=== PATIENT | female | born 1935 | race Caucasian/White ===

== ENCOUNTER 2017-11-12 09:50 | Emergency (ER) | payer MEDICARE, OTHER, SELFPAY ==
[2017-11-12 09:51] VITALS: BP 135/62; PULSE 70; RESP 16; TEMP 36.9; O2SAT 94; BMI 27.4
--- NOTE | 2017-11-12 10:01 | CT_ITS ---
STUDY: CT LUMBAR SPINE WITHOUT CONTRAST REASON FOR EXAM: Female, 82 years old. Low back pain following a lifting injury. RADIATION DOSAGE (If Supplied By Facility): CTDIvol = ( 27.71 ) mGy, DLP = ( 796.35 ) mGycm TECHNIQUE: The patient was scanned in a multi detector CT scanner. High resolution transaxial imaging was performed. Images were obtained from T12 to L1 level. Sagittal and coronal images were reconstructed. Individualized dose optimization techniques were used for this CT. COMPARISON: None FINDINGS: Normal lumbar lordosis. There is no substantial scoliosis. Normal vertebrae of the lumbar spine. L1-2: Mild degree of disc space narrowing. Anterior spondylosis. L2-3: Mild degree of retrolisthesis of L2 on L3. Spondylosis. Mild degree of diffuse posterior disc bulge. No stenosis is seen. L3-4: Moderate degree of disc space narrowing. Diffuse posterior disc bulge. Facet joint osteoarthritis and hypertrophy. Mild degree of central canal stenosis and moderate degree of bilateral neural foraminal stenosis. L4-5: Grade 1 anterolisthesis of L4 on L5. Facet joint osteoarthritis and hypertrophy. Diffuse posterior disc bulge. Marked degree of central and bilateral neural foraminal stenosis. L5-S1: Moderate degree of disc space narrowing. Facet joint osteoarthritis. No significant stenosis is seen. Calcification of the abdominal aorta. CT/Spine Lumbar without Contrast IMPRESSION: Multilevel degenerative changes, as described above. Spinal stenosis at the L4-L5 level with mild anterior listhesis of L4 on L5. Electronically Signed: Jose Rowan MD at 14:12 EDT Tel [phone], Service support ,
--- NOTE | 2017-11-12 10:03 | ED.DCSUM_ITS ---
- ER Visit Summary Date of Service: 11/12/17 Chief Complaint: Lower back pain History of Present Illness: The patient is a 82 F with history of prior low back pain and osteoporosis presents to the emergency department with increasing lower back pain. Patient states about a week ago, she picked up her 15 pound dog. She states that she felt some tightness in her low back. It does radiate into her right hip. She states over the week, the pain is worsened. She states by Wednesday night, the pain was rather significant. She states last night , when she got out of bed her back locked up and she had a difficult time getting back in the bed. She denies any problems of bowel or bladder. She denies any weakness of the leg. She denies any change in gait. She has taken Tylenol with little improvement. Physical Examination: Afebrile, vitals unremarkable. Well-appearing female no acute distress. Head is normocephalic, atraumatic. Pupil's equal round reactive, extraocular muscles intact. Neck supple. Heart regular rate and rhythm. Lungs clear, chest nontender. Abdomen soft, nontender, nondistended. No pulsatile mass. Patient has paraspinal tenderness in the lumbar area, but no bony tenderness. Straight leg raise is negative bilaterally. 2+ symmetric lower extremity pulses. 2+ reflexes. No clonus. No weakness of dorsiflexion, plantar flexion, or extensor hallucis longus bilaterally. Test Results: [] Emergency Department Course and Treatment: The patient presented with midline back pain that is worse with motion. It does not radiate down her leg. She denies any changes in gait. She has no red flag symptoms. The patient does have a history of pancytopenia that she follows with oncology in [place]. She states that this is chronic. I did obtain screening labs. Her platelets are 50 , but in review of her prior records with the patient and family, her last platelets were 50. She has had no easy bleeding or bruising. Patient's urine does show evidence of infection. She has had some mild dysuria over the past 2 days when I brought this up with her. Culture was added. I will place her on Keflex. I did obtain CT of the lumbar spine. This did demonstrate anterolisthesis at the L4-L5 area. There is also severe spinal stenosis at this area. Again, the patient had no trauma. She was just lifting. I do feel that this is more likely disc disease. It does not radiate. She has no symptoms of cauda equina. Even in light of her thrombocytopenia, she had no fall. I do not feel that her symptoms represent epidural hematoma or other dangerous process. With morphine, she is pain-free. She is ambulating easily. I will treat the patient with a short course of analgesics and she will be kept on antibiotics. I did certified genetic counselor her that she may need follow-up with orthopedics as an outpatient when she goes back to [place] versus outpatient MRI. She is comfortable with this and will return with any worsening symptoms. Treatment Plan: [] Disposition: Discharge Impression: 1. Acute lumbar strain 2. Acute cystitis This note was generated with [employer] dictation software. It may contain incorrect words, spelling, and punctuation that were not noted in review of the chart prior to signing ED Disposition - Plan for ED Patient: Chief Complaint: Back Instructions: ED Sprain Strain Lumbar, ED UTI Cystitis Female Prescriptions: Hydrocodone Bitart/Apap 5-325 [[place] 5MG-325MG] 1 tab PO Q6H PRN PRN 3 Days #10 tab PRN Reason: Pain Cephalexin [Keflex] 500 mg PO Q8 #30 cap Referrals: [facility] Doctor,Out of [Primary Care Provider] -
[2017-11-12] MEDS: Morphine 4 MG/ML Syringe IV (10:32)
[2017-11-12] MEDS: Ondansetron 4 MG/2 ML Vial IV (10:33)
[2017-11-12 10:57] LABS: Absolute Lymphocyte Count 0.41 X10^3/ul (0.83-4.51); Absolute Neutrophil Count 2.2 X10^3/uL (2.0-7.7); Eosinophil# 0.06 X10^3/uL; Hematocrit 35.1 % (37-47); Hemoglobin 11.5 g/dl (12.0-15.0); Lymphocyte # 0.41 X10^3/ul (4.0); Lymphocyte % 13.9 % (19-41); Mean Corp Hgb Conc 32.8 g/gl (32-36); Mean Corpuscular Hgb 31.9 pg (27.0-32.0); Mean Corpuscular Volume 97.2 fL (81-99); Mean Platelet Vol. 11.3 fl (6.2-12.0); Monocyte# 0.23 X10^3/uL; Monocyte% 7.8 % (0-10); Neutrophil # 2.24 X10^3/uL (2.7-7.7); Neutrophil % 76.3 % (47-70); Platelet Count 50 K/mm3 (150-450); RBC Distribution Width CV 14.2 % (11.6-14.6); RBC Distribution Width SD 50.6 fl (35.1-43.9); Red Blood Count 3.61 M/mm3 (4.2-5.4); White Blood Count 2.9 K/mm3 (4.4-11.0)
[2017-11-12 10:59] LABS: Differential Indicated SCAN CRITERIA MET; POSITIVE COUNT NO; POSITIVE DIFFERENTIAL YES; POSITIVE MORPHOLOGY NO
[2017-11-12 11:03] LABS: Anion Gap 8 (5-15); BUN 37 mg/dL (7-18); Calcium,Total 8.9 mg/dL (8.5-10.1); Chloride 111 mmol/L (98-107); Creatinine, Serum 1.48 mg/dL (0.55-1.02); EST Glomerular Filtration Rate 36 mL/min (>60); Est Glom Filt Rate - Afr Amer 44 mL/min (>60); Estimated Creatinine Clearance 23.98 ml/min; Glucose 213 mg/dL (74-106); Potassium 4.6 mmol/L (3.5-5.1); Sodium Level 143 mmol/L (136-145)
[2017-11-12 11:04] LABS: Mucous, Urine 0 SEEN /hpf (<or=2+)
[2017-11-12 11:07] LABS: Color, Urine Yellow (Yellow); Glucose, Dipstick Normal (Normal); Ketone-Dipstick Negative (Negative); Leukocyte Esterase-Dipstick 500 /ul (Negative); Nitrite-Dipstick Positive (Negative); Occult Blood-Urine 25 /ul (Negative); Protein-Dipstick 15 mg/dl (Negative); Specific Gravity, Urine 1.015 (1.002-1.030); Urine Bilirubin Dipstick Negative (Negative); Urine Clarity Sl. Cloudy (Clear); Urine Urobilinogen Normal (Normal)
[2017-11-12 11:15] LABS: Bacteria 1+ /hpf (None Seen); Red Blood Cells-Urine 0-5 SEEN /hpf (0-5); Squamous Epithelial Cells - UA 0-5 SEEN /hpf (5-10); White Blood Cells 25-50 SEEN /hpf (0-5)
[2017-11-12 11:59] VITALS: RESP 16
[2017-11-12 13:15] VITALS: BP 128/45; PULSE 64; RESP 17; O2SAT 98
[2017-11-12] MEDS: Cephalexin 250 MG Capsule 500 MG PO (13:15)
[2017-11-15 14:41] LABS: Pathologist Review Reviewed
== END 2017-11-12 13:18 | disposition home or self-care (01) ==
PROVIDERS: Emergency Provider Emergency Medicine
DX: N30.00 Acute cystitis without hematuria (principal); S39.012A Strain of muscle, fascia and tendon of lower back, initial encounter; X50.9XXA Other and unspecified overexertion or strenuous movements or postures, initial encounter; Y93.9 Activity, unspecified; Y92.89 Other specified places as the place of occurrence of the external cause; Y99.9 Unspecified external cause status; M48.061 Spinal stenosis, lumbar region without neurogenic claudication; I10 Essential (primary) hypertension; I25.10 Atherosclerotic heart disease of native coronary artery without angina pectoris; E78.00 Pure hypercholesterolemia, unspecified
CPT/HCPCS: 72131; 80048; 81001; 85025; 87086; 87088; 87186; 96374; 96375; 99285; A4216; J2405

== ENCOUNTER 2023-03-19 11:20 | Emergency (ER) | payer MEDICARE, OTHER, SELFPAY ==
[2023-03-19 11:22] VITALS: BP 155/54; PULSE 89; RESP 10; TEMP 37.1; O2SAT 94; BMI 22.6
--- NOTE | 2023-03-19 11:42 | RAD_ITS ---
EXAM: XR PELVIS, 1 OR 2 VIEWS CLINICAL INDICATION: fall/pain L buttock TECHNIQUE: Frontal view of the pelvis. COMPARISON: No relevant prior studies available. FINDINGS: BONES/JOINTS: No acute fracture or subluxation. Surgical fixation of the left femoral neck. No significant hip joint space narrowing. Mild bony hypertrophy of the acetabulum bilaterally. SOFT TISSUES: Normal. No soft tissue swelling or gas. RAD/Pelvis 1 or 2 Views IMPRESSION: No acute abnormality. Electronically Signed: Camilo Spivey MD at 12:49 EST ,
--- NOTE | 2023-03-19 11:44 | EDS_ITS ---
HPI History of Present Illness Chief Complaint: Weakness Informant: patient and family Narrative Narrative: 87-year-old female limited history from her due to dementia, she is in [facility] memory care units and has been weak for the past 1-2 days to the point where today she is unable to get out of bed and stand/walk, she normally is ambulatory with a walker. She is at her baseline mental status according to family. She recently finished a course of antibiotics for right periorbital cellulitis according to the family, finishing the antibiotics 2 or 3 days ago. Yesterday she had 2 bouts of diarrhea, and family states she has not drank any water or fluids yesterday or today. She apparently had a minor fall yesterday as well. Nurses told family who reports to me that she sustained a skin tear on her left forearm on the walker that she had with her, and fell onto her buttocks. She was able to stand after that without pain or other significant difficulty so she was not sent to the ER for evaluation at that time. [facility]isted [facility] paperwork shows patient is DNR comfort care only. PFSH PFS Home Medications levothyroxine 25 mcg tablet 50 mcg PO DAILY 12/21/12 [History Last Taken Unknown] allopurinol 300 mg tablet 300 mg PO DAILY 06/13/16 [History Last Taken Unknown] atorvastatin 40 mg tablet 40 mg PO DAILY 11/12/17 [History Last Taken Unknown] colchicine 0.6 mg capsule 0.3 mg PO DAILY 11/12/17 [History Last Taken Unknown] insulin degludec 100 unit/mL (3 mL) subcutaneous pen (Tresiba FlexTouch U-100 insulin) 10 unit subcut QHS 11/12/17 [History Last Taken Unknown] iron, carbonyl 45 mg tablet (Feosol) 65 mg PO DAILYCM 11/12/17 [History Last Taken Unknown] metoprolol tartrate 50 mg tablet 50 mg PO BID 11/12/17 [History Last Taken Unknown] sertraline 50 mg tablet 50 mg PO QHS 11/12/17 [History Last Taken Unknown] ascorbic acid (vitamin C) 500 mg tablet (Vitamin C) 500 mg PO BID 03/19/23 [History Last Taken Unknown] cephalexin 250 mg capsule 250 mg PO DAILY 03/19/23 [History Last Taken Unknown] cholecalciferol (vitamin D3) 125 mcg (5,000 unit) tablet (Vitamin D3) 5,000 unit PO DAILY 03/19/23 [History Last Taken Unknown] cholestyramine (with sugar) 4 gram powder for susp in a packet 1 ea PO TIDCM 03/19/23 [History Last Taken Unknown] ferrous sulfate 325 mg (65 mg iron) tablet (Feosol) 325 mg PO DAILY 03/19/23 [History Last Taken Unknown] memantine 10 mg tablet 10 mg PO BID 03/19/23 [History Last Taken Unknown] Allergy/AdvReac Type Severity Reaction Status Date / Time sulfamethoxazole AdvReac Nausea Verified 03/19/23 11:21 [From Bactrim] trimethoprim [From Bactrim] AdvReac Nausea Verified 03/19/23 11:21 Social History Smoking Status: Never smoker ROS ROS ED Review of Systems ROS Unobtainable: other Details: Limited due to dementia Constitutional Constitutional ED: Denies chills Eyes Eyes: Denies change in vision or diplopia ENT ENT ED: Denies sore throat Cardiovascular Cardiovascular: Denies chest pain Respiratory/Chest Respiratory/Chest: Denies dyspnea Gastrointestinal Gastrointestinal: Denies abdominal pain or nausea Musculoskeletal Musculoskeletal: Denies back pain or neck pain Integumentary Reports other Details: Skin tear Neurologic Neurologic: Reports other Details: Generalized weakness ; Denies headache(s) or paresthesias EXAM Physical Exam Const Vital Signs: 03/19/23 11:22 03/19/23 11:30 03/19/23 13:21 Temperature 98.8 F Temperature Source Temporal Pulse Rate 89 63 Respiratory Rate 10 L 14 Respiratory Effort Normal Non-Labored Respiratory Pattern Normal Blood Pressure 155/54 H 153/59 H Blood Pressure Mean 87 90 Pulse Ox 94 Oxygen Delivery Method Room Air Positive well nourished and well developed General Appearance ED: well developed and NAD HEENT Reports moist mucous membranes normocephalic and atraumatic Eyes PERRL and EOMs intact bilaterally Neck full ROM and supple Resp normal respiratory effort and clear to auscultation bilaterally Cardio regular rate, regular rhythm and no murmurs GI non-tender and non-distended Auscultation: normoactive bowel sounds Palpation: soft Back/Spine no CVA tenderness Back/Spine Narrative: No midline spinal tenderness throughout the spine. There is some mild tenderness in the right buttock approximately at the ischial tuberosity area. No crepitance. Pelvis stable to AP compression. General Back: other FROM Extremity normal to inspection Extremity Narrative: Full range of motion throughout all joints, pain with supination and pronation of the left wrist/forearm, other than the skin tear inspection is normal. I am able to internally and externally rotate both hips without eliciting any pain. General Extremety ED: Negative for edema, pulses abnormal or tenderness General Extremity: Negative for edema or pulses abnormal Neuro CN's II-XII intact bilaterally and no sensory deficits noted Neuro Narrative: At baseline mental status. Nonfocal peripheral neurologic exam. Sensorium / Orientation: awake, alert and orientation impaired Motor Exam: general weakness Skin Skin Narrative: Chronic wound large scab over skin graft left face, mildly tender, appearance is stable according to family at bedside. There is a skin tear approximately 20 cm? left volar forearm without signs of active bleeding or infection. There is no periorbital cellulitis either side. No other rashes or wounds. MDM MDM MDM Narrative Medical decision making narrative: There is a dried crusted piece of gauze over the skin tear. This was gently removed, and replaced with bacitracin-coated Telfa nonstick pad after cleansing the wound gently. Workup was entertained, given the wide differential here of an elderly confused weak woman. She has not been drinking and dehydration is thought to be more than likely. Workup was also aimed at ruling out infections, other metabolic disturbances, cardiac injury, and anemia that could be due to multiple causes including her chronic kidney disease that she has a history of. In the meantime she was given a liter of IV fluids. Chest x-ray 1 view on my interpretation shows no acute abnormality or pneumonia. Pelvis x-ray 2 views on my interpretation showed no evidence of any fractures. Lab suggest mild dehydration partially due to diarrhea and more likely due to lack of oral intake, with a suppressed bicarb but normal anion gap and stable renal function. The rest of her workup is unremarkable. She is not excessively anemic for her kidney function and history of hemoglobins. I do not think she needs a head CT, she has no evidence of trauma to it, and she is at her baseline mental status, and is well is DNR comfort care only. We gave her an oral fluid challenge after the IV fluids and she is drinking without any difficulty. I do not think we have any medical reason to admit her to the hospital, family is comfortable with her going back to the memory care unit. Nurses discussed with staff there, they are comfortable taking her back as well and we advised them to encourage oral fluids, and with regards to her diarrhea if the frequency and nature of it change/increase/worsen, it may be reasonable to send for C. difficile but that is not a concern right now after 2 isolated bouts of diarrhea without any in the emergency department after several hours. History & Record Review Discussion w/independent historian: Patient, Family (2 members) and Other ([facility] paperwork) Lab Data Attestation: I reviewed the patient's lab results. Labs: Laboratory Results - last 24 hr 03/19/23 03/19/23 12:00 12:50 WBC 4.0 L RBC 3.53 L Hgb 10.9 L Hct 34.8 L MCV 98.6 MCH 30.9 MCHC 31.3 L RDW Std Deviation 51.6 H RDW Coeff of Beatrice 14.5 Plt Count 57 L MPV 10.5 Immature Gran % (Auto) 0.500 Neut % (Auto) 73.6 H Lymph % (Auto) 18.6 L [place] % (Auto) 5.0 Eos % (Auto) 2.3 Baso % (Auto) 0.0 Absolute Neuts (auto) 2.9 Absolute Lymphs (auto) 0.74 L Nucleated RBC % 0 Sodium 144 Potassium 4.5 Chloride 120 H Carbon Dioxide 18.0 L Anion Gap 6 BUN 33 H Creatinine 1.34 H Estim Creat Clear Calc 24.28 Est GFR (MDRD) Af Amer 48 L Est GFR (MDRD) Non-Af 40 L BUN/Creatinine Ratio 24.6 H Glucose 126 H Calcium 9.3 Total Bilirubin 0.50 AST 24 ALT 24 Alkaline Phosphatase 147 H Troponin I High Sens 14 Total Protein 5.7 L Albumin 3.0 L Globulin 2.7 Albumin/Globulin Ratio 1.1 Urine Color Yellow Urine Clarity Clear Urine pH 5.0 Ur Specific [place] 1.015 Urine Protein 30 H Urine Glucose (UA) Normal Urine Ketones Negative Urine Occult Blood 250 H Urine Nitrite Negative Urine Bilirubin Negative Urine Urobilinogen Normal Ur Leukocyte Esterase 100 H Urine RBC 25-50 SEEN Urine WBC 10-25 SEEN Ur Squamous Epith Cells 0 SEEN Urine Bacteria 0 SEEN Urine Mucus 0 SEEN Radiography Diagnostic Testing: Clinical Impression(s) from Imaging Studies Pelvis X-Ray 03/19/23 11:42 IMPRESSION: No acute abnormality. Electronically Signed: Camilo Spivey MD at 12:49 EST , Chest X-Ray 03/19/23 12:20 IMPRESSION: No acute cardiopulmonary abnormality. No interval change. Electronically Signed: Camilo Spivey MD at 12:43 EST , Rhythm Strip Rhythm Strip: Sinus Rhythm Rate: 65 Ectopy: None EKG Initial EKG: Attestation: I personally reviewed and interpreted this EKG as follows: Interpretation: Sinus Rhythm and No Acute Injury Pattern Comments: nml EKG Discharge Plan Triage Chief Complaint: Weakness ED Provider: Fer Benton Dx/Rx/DC Orders Clinical Impression: Generalized weakness, Mild dehydration, Acute diarrhea Instructions: ED Dehydration (Adult), ED Diarrhea, Unknown Cause Prescriptions: No Action levothyroxine 25 MCG tablet 50 mcg PO DAILY allopurinol 300 MG tablet 300 mg PO DAILY atorvastatin 40 MG tablet 40 mg PO DAILY metoprolol tartrate 50 MG tablet 50 mg PO BID sertraline 50 MG tablet 50 mg PO QHS iron, carbonyl [Feosol] 45 MG capsule 65 mg PO DAILYCM insulin degludec [Tresiba FlexTouch U-100] 100 UNIT/ML insulin pen 10 unit subcut QHS colchicine 0.6 MG tablet 0.3 mg PO DAILY memantine 10 mg tablet 10 mg PO BID cephalexin 250 mg capsule 250 mg PO DAILY cholestyramine (with sugar) 4 gram powder in packet 1 ea PO TIDCM ferrous sulfate [Feosol] 325 mg (65 mg iron) tablet 325 mg PO DAILY ascorbic acid (vitamin C) [Vitamin C] 500 mg tablet 500 mg PO BID cholecalciferol (vitamin D3) [Vitamin D3] 125 mcg (5,000 unit) tablet 5,000 unit PO DAILY Primary Care Provider: Sneha Mabry Referrals: [facility],Out of [Non-Staff] - 3-5 Days if not improving Activity Restrictions/Additional Instructions: Encourage fluids since patient has dementia and may forget. If diarrhea significantly worsens, consider obtaining a sample and calling the doctor of record for c. diff testing order. Also consider providing twice daily probiotic capsule in case this is antibiotic associated diarrhea to help prevent worsening. Disposition Disposition: Home, Self Care
[2023-03-19] MEDS: 0.9% Normal Saline (1000mL) 1,000 ML 1000 ML IV (12:08)
[2023-03-19 12:11] LABS: Absolute Lymphocyte Count 0.74 X10^3/uL (0.83-4.51); Absolute Neutrophil Count 2.9 X10^3/uL (2.0-7.7); Eosinophil# 0.09 X10^3/uL; Eosinophils% 2.3 % (0-5); Hematocrit 34.8 % (37-47); Hemoglobin 10.9 g/dL (12.0-15.0); Lymphocyte # 0.74 X10^3/ul (0.83-4.51); Lymphocyte % 18.6 % (19-41); Mean Corp Hgb Conc 31.3 g/dL (32-36); Mean Corpuscular Hgb 30.9 pg (27.0-32.0); Mean Corpuscular Volume 98.6 fL (81-99); Mean Platelet Vol. 10.5 fl (6.2-12.0); NRBC Flagged by Analyzer 0 % (0-5); Neutrophil # 2.93 X10^3/uL (2.7-7.7); Neutrophil % 73.6 % (47-70); POSITIVE COUNT YES; RBC Distribution Width CV 14.5 % (11.6-14.6); RBC Distribution Width SD 51.6 fl (35.1-43.9); Red Blood Count 3.53 M/mm3 (4.2-5.4)
[2023-03-19 12:12] LABS: Platelet Count 57 K/mm3 (150-450)
--- NOTE | 2023-03-19 12:20 | RAD_ITS ---
EXAM: XR CHEST, 1 VIEW CLINICAL INDICATION: weakness TECHNIQUE: Frontal view of the chest. COMPARISON: XR Chest dated 06/13/2016 FINDINGS: LUNGS AND PLEURAL SPACES: Normal. No consolidation or edema. No pneumothorax. No effusion. HEART: Normal heart size. MEDIASTINUM: No mediastinal or hilar mass. BONES/JOINTS: No acute abnormality. RAD/Chest 1 View (Portable) IMPRESSION: No acute cardiopulmonary abnormality. No interval change. Electronically Signed: Camilo Spivey MD at 12:43 EST ,
[2023-03-19 12:42] LABS: ALB/GLOB Ratio 1.1 RATIO (0.9-2.4); AST(SGOT) 24 U/L (15-37); Alanine Aminotransfer ALT/SGPT 24 U/L (13-56); Alkaline Phosphatase 147 U/L (45-117); Anion Gap 6 (5-15); BUN 33 mg/dL (7-18); BUN/Creat Ratio 24.6 RATIO (10-20); Calcium,Total 9.3 mg/dL (8.5-10.1); Chloride 120 mmol/L (98-107); Creatinine, Serum 1.34 mg/dL (0.55-1.02); EST Glomerular Filtration Rate 40 mL/min (>60); Est Glom Filt Rate - Afr Amer 48 mL/min (>60); Estimated Creatinine Clearance 24.28 ml/min; Globulin 2.7 g/dL (2.2-4.2); Glucose 126 mg/dL (74-106); Potassium 4.5 mmol/L (3.5-5.1); Protein, Total 5.7 g/dL (6.4-8.2); Sodium Level 144 mmol/L (136-145); Troponin-I HS 14 pg/mL (3.0-54.0)
[2023-03-19 12:57] LABS: Bacteria 0 SEEN /hpf (None Seen); Mucous, Urine 0 SEEN /hpf (<or=2+); Squamous Epithelial Cells - UA 0 SEEN /hpf (5-10)
[2023-03-19 13:01] LABS: Color, Urine Yellow (Yellow); Glucose, Dipstick Normal (Normal); Ketone-Dipstick Negative (Negative); Leukocyte Esterase-Dipstick 100 /ul (Negative); Nitrite-Dipstick Negative (Negative); Occult Blood-Urine 250 /ul (Negative); Protein-Dipstick 30 mg/dl (Negative); Specific Gravity, Urine 1.015 (1.002-1.030); Urine Bilirubin Dipstick Negative (Negative); Urine Clarity Clear (Clear); Urine Urobilinogen Normal (Normal)
[2023-03-19 13:21] VITALS: BP 153/59; PULSE 63; RESP 14
[2023-03-19 13:23] LABS: Red Blood Cells-Urine 25-50 SEEN /hpf (0-5); White Blood Cells 10-25 SEEN /hpf (0-5)
--- NOTE | 2023-03-19 14:09 | ED.RN ---
pts skin tear to left forearm cleansed with sterile saline. bacitracin applied with a nonstick telfa dressing. wrapped with kerlex wrap. pt tolerated well. family instructed on home care for wound and dressing supplies to obtain for nursing facility. family denies questions or concerns at this time.
== END 2023-03-19 14:48 | disposition home or self-care (01) ==
PROVIDERS: Emergency Provider Emergency Medicine; PCP Family Medicine; Visit Provider Emergency Medicine
DX: R53.1 Weakness (principal); F03.90 Unspecified dementia, unspecified severity, without behavioral disturbance, psychotic disturbance, mood disturbance, and anxiety; E86.0 Dehydration; R19.7 Diarrhea, unspecified
CPT/HCPCS: 71045; 72170; 80053; 81001; 84484; 85025; 93005; 96360; 99283; J7030; A4216

== ENCOUNTER 2023-03-25 11:50 | Emergency (ER) | payer MEDICARE, OTHER, SELFPAY ==
[2023-03-25 11:51] VITALS: BP 140/50; PULSE 65; RESP 18; TEMP 36.5; O2SAT 100
--- NOTE | 2023-03-25 12:06 | VDLE_ITS ---
Reason For Study: LLE Swelling RIGHT LEFT CFV is compressible, spontaneous, phasic, GSV is normal. competent and demonstrates normal CFV is compressible, spontaneous, competent, augmentation. and demonstrates pulsatile venous flow. Procedure FV is compressible, spontaneous, competent This is a venous duplex using B-mode, color and demonstrates pulsatile venous flow. flow and spectral Doppler. POP V is compressible, spontaneous, competent Exam performed portable in ED. and demonstrates pulsatile venous flow. The exam was diagnostic. T/P Trunk is compressible. A preliminary report was called and/or faxed PTV is compressible. to Dr. Oropeza. LT PerV is compressible. VL/Venous Duplex US, Unilateral Interpretation Summary Deep veins of the left lower extremity are patent and compressible segmentally. There is no evidence of left lower extremity deep vein thrombosis. The left great saphenous vein michele ears patent and compressible segmentally. Ordering Physician: Anna Oropeza Referring Physician: Sneha Mabry Performed By: Gaston Bello RVT
--- NOTE | 2023-03-25 12:08 | EX.ED.DYSGE1 ---
HPI History of Present Illness Chief Complaint: Weakness Detail of Chief Complaint: Generalized weakness and left leg swelling Informant: patient and family Narrative Narrative: Patient presents from [facility] and brought in by family for evaluation of her left foot and leg swelling. Patient having hard time ambulating because of pain. She had a fall 4 days ago and was seen in the emergency department. Daughter noticed some swelling to the left leg yesterday. There is concern about DVT. Patient also had a skin graft to the left side of her face in October in [place] and recently they have noticed some drainage and some blood clot over the direct graft and they are worried about infection. She has had no fever. Patient has history of aphasia and otherwise is a poor historian therefore history comes from family members. PFSH PFSH Home Medications levothyroxine 25 mcg tablet 50 mcg PO DAILY 12/21/12 [History Last Taken Unknown] allopurinol 300 mg tablet 300 mg PO DAILY 06/13/16 [History Last Taken Unknown] atorvastatin 40 mg tablet 40 mg PO DAILY 11/12/17 [History Last Taken Unknown] colchicine 0.6 mg capsule 0.3 mg PO DAILY 11/12/17 [History Last Taken Unknown] insulin degludec 100 unit/mL (3 mL) subcutaneous pen (Tresiba FlexTouch U-100 insulin) 10 unit subcut QHS 11/12/17 [History Last Taken Unknown] iron, carbonyl 45 mg tablet (Feosol) 65 mg PO DAILYCM 11/12/17 [History Last Taken Unknown] metoprolol tartrate 50 mg tablet 50 mg PO BID 11/12/17 [History Last Taken Unknown] sertraline 50 mg tablet 50 mg PO QHS 11/12/17 [History Last Taken Unknown] ascorbic acid (vitamin C) 500 mg tablet (Vitamin C) 500 mg PO BID 03/19/23 [History Last Taken Unknown] cephalexin 250 mg capsule 250 mg PO DAILY 03/19/23 [History Last Taken Unknown] cholecalciferol (vitamin D3) 125 mcg (5,000 unit) tablet (Vitamin D3) 5,000 unit PO DAILY 03/19/23 [History Last Taken Unknown] cholestyramine (with sugar) 4 gram powder for susp in a packet 1 ea PO TIDCM 03/19/23 [History Last Taken Unknown] ferrous sulfate 325 mg (65 mg iron) tablet (Feosol) 325 mg PO DAILY 03/19/23 [History Last Taken Unknown] memantine 10 mg tablet 10 mg PO BID 03/19/23 [History Last Taken Unknown] ciprofloxacin HCl 500 mg tablet 500 mg PO BID #14 TABLETS 03/25/23 [Rx Last Taken Unknown] doxycycline monohydrate 100 mg capsule 100 mg PO BID #20 CAPSULES 03/25/23 [Rx Last Taken Unknown] Allergy/AdvReac Type Severity Reaction Status Date / Time amoxicillin [From Augmentin] Allergy Severe Hives Verified 03/25/23 11:54 clavulanic acid Allergy Severe Hives Verified 03/25/23 11:54 [From Augmentin] sulfamethoxazole AdvReac Nausea Verified 03/25/23 11:51 [From Bactrim] trimethoprim [From Bactrim] AdvReac Nausea Verified 03/25/23 11:51 Social History Smoking Status: Never smoker ROS ROS ED Review of Systems ROS Unobtainable: other Constitutional Constitutional ED: Reports lethargy; Denies chills, fever(s), sweats or weight loss Eyes Eyes: Denies blurry vision, change in vision or diplopia ENT ENT ED: Reports other Details: Lesion left side of face ; Denies rhinorrhea or sore throat Cardiovascular Cardiovascular: Denies chest pain, orthopnea or racing heartbeat Respiratory/Chest Respiratory/Chest: Denies cough, dyspnea, dyspnea on exertion, orthopnea or sputum Gastrointestinal Gastrointestinal: Denies abdominal pain, diarrhea, nausea or vomiting Genitourinary Genitourinary ED: Denies dysuria, hematuria or urinary frequency Musculoskeletal Musculoskeletal: Reports other Details: Left foot pain and left leg swelling ; Denies arthralgias, back pain, myalgias or neck pain Integumentary Denies abscess, Abrasions or rash Neurologic Neurologic: Denies headache(s) or weakness Psychiatric Psychiatric: Denies anxiety, depression or suicidal thoughts Endocrine Endocrinology: Denies polydipsia, polyphagia or polyuria Hematologic/Lymphatic Hematologic/Lymphatic: Denies easy bleeding, easy bruising or lymphadenopathy Allergic/Immunologic Allergic/Immunologic ED: Denies mouth swelling, tongue swelling or urticaria EXAM Physical Exam Const Vital Signs: 03/25/23 11:51 03/25/23 14:40 03/25/23 15:52 Temperature 97.7 F L Temperature Source Temporal Pulse Rate 65 73 Respiratory Rate 18 15 Respiratory Effort Normal Non-Labored Respiratory Pattern Normal Blood Pressure 140/50 H 127/66 H Blood Pressure Mean 80 86 Pulse Ox 100 94 Oxygen Delivery Method Room Air Positive well nourished and well developed General Appearance ED: well developed and NAD HEENT Reports TM's clear and moist mucous membranes HEENT Narrative: Patient has excoriated lesion left cheek somewhat linear with areas of granulated clot and some fibrous yellowish drainage. No significant cellulitic changes noted. normocephalic and atraumatic; Negative for trauma or tenderness Tympanic Membrane ED: Yes TM's clear Eyes PERRL and EOMs intact bilaterally General Eye ED: Negative for pale conjunctiva or scleral icterus Neck no lymphadenopathy, supple and no JVD General: Negative for tenderness Chest Wall inspection of chest normal and palpation of chest normal Chest: Negative for tenderness Resp normal respiratory effort and clear to auscultation bilaterally Effort and Inspection: Negative for respiratory distress or pain with movement Auscultation: Negative for rhonchi, wheezes or diminished lung sounds Cardio regular rate, regular rhythm, S1 normal heart sound, S2 normal heart sound and no murmurs Peripheral Pulses: pulses 2+ throughout GI normal to inspection, nondistended, normoactive bowel sounds, soft to palpation, non-tender, non-distended and no masses Back/Spine no CVA tenderness and no thoracic nor lumbar tenderness Extremity Extremity Narrative: Left leg-patient has noted edema to the left foot as well as lower extremity up to the knee. Tenderness and fluctuance to the left heel. No significant cellulitic changes. Neurovascularly intact. General Extremety ED: Negative for edema General Extremity: Negative for edema Neuro oriented x3, CN's II-XII intact bilaterally, no sensory deficits noted and gait normal Sensorium / Orientation: awake, alert, oriented to person, oriented to place and oriented to time Motor Exam: strength 5/5 throughout and strength abnormal Psych mental status grossly normal Skin no rashes or lesions noted and no wounds MDM MDM MDM Narrative Medical decision making narrative: Patient presents with swelling to her left leg and a blister to the left heel they were concerned at [facility] about possibility of DVT. Family also concerned because they noted that she had some drainage and some scabbing to the left side of the face. Patient had some sort of a skin graft in October 2022 to the left side of the face and it had healed relatively well. Patient also fell 4 days ago and was seen in the emergency department. IV line established. Patient had a low white count of 3.6 with hemoglobin of 10.6 and platelet count of 55. The thrombocytopenia is a chronic finding. I did obtain x-rays of the left which showed soft tissue swelling otherwise no gas in the tissues orFoot. No fractures noted. I did obtain a venous Doppler of the lower extremity that was negative for DVT. Urinalysis was positive for infection and I did send off a urine culture. I spoke with Dr. Aleman who is on for podiatry who recommended doxycycline and ciprofloxacin and follow-up with them at the wound center. Will apply clean dressing to the heel. They also have an appointment with the surgeon regarding patient's face wound. The appointment is for next week. I did obtain a wound culture. Lab Data Attestation: I reviewed the patient's lab results. Labs: Laboratory Results - last 24 hr 03/25/23 03/25/23 12:27 14:34 WBC 3.6 L RBC 3.40 L Hgb 10.6 L Hct 33.7 L MCV 99.1 H MCH 31.2 MCHC 31.5 L RDW Std Deviation 51.9 H RDW Coeff of Beatrice 14.4 Plt Count 55 L MPV 10.5 Immature Gran % (Auto) 0.600 Neut % (Auto) 75.7 H Lymph % (Auto) 17.1 L [place] % (Auto) 5.5 Eos % (Auto) 0.8 Baso % (Auto) 0.3 Absolute Neuts (auto) 2.7 Absolute Lymphs (auto) 0.62 L Nucleated RBC % 0 Sodium 140 Potassium 4.2 Chloride 116 H Carbon Dioxide 21.0 Anion Gap 3 L BUN 28 H Creatinine 1.33 H Est GFR (MDRD) Af Amer 49 L Est GFR (MDRD) Non-Af 40 L BUN/Creatinine Ratio 21.1 H Glucose 189 H Lactic Acid 1.1 Calcium 9.1 Urine Color Yellow Urine Clarity Sl. Cloudy Urine pH 5.0 Ur Specific [place] 1.015 Urine Protein 30 H Urine Glucose (UA) Normal Urine Ketones Negative Urine Occult Blood 250 H Urine Nitrite Negative Urine Bilirubin Negative Urine Urobilinogen Normal Ur Leukocyte Esterase 500 H Urine RBC 25-50 SEEN Urine WBC 25-50 SEEN Ur Squamous Epith Cells 0-5 SEEN Urine Bacteria 1+ Urine Mucus 0 SEEN Radiography Diagnostic Testing: Clinical Impression(s) from Imaging Studies Venous Doppler Study 03/25/23 12:06 Interpretation Summary Deep veins of the left lower extremity are patent and compressible segmentally. There is no evidence of left lower extremity deep vein thrombosis. The left great saphenous vein appears patent and compressible segmentally. Ordering Physician: Anna Oropeza Referring Physician: Sneha Mbary Performed By: Gaston Bello RVT Foot X-Ray 03/25/23 13:20 IMPRESSION: Soft tissue swelling. Calcaneal spurs. Electronically Signed: Jose Rowan MD at 13:50 EST , Three-view x-rays of the left foot obtained interpreted by myself as no fractures. She does have a heel spur. Radiology in agreement. Discharge Plan Triage Chief Complaint: Weakness ED Provider: Anna Oropeza Dx/Rx/DC Orders Clinical Impression: Blister (nonthermal), left foot, initial encounter, Cellulitis of face, Acute UTI Instructions: ED Blister (Adult), ED Cellulitis, Facial, ED Cystitis Female Adult Prescriptions: New ciprofloxacin HCl [ciprofloxacin HCl] 500 mg tablet 500 mg PO BID Qty: 14 0RF doxycycline monohydrate 100 mg capsule 100 mg PO BID Qty: 20 0RF No Action levothyroxine 25 MCG tablet 50 mcg PO DAILY allopurinol 300 MG tablet 300 mg PO DAILY atorvastatin 40 MG tablet 40 mg PO DAILY metoprolol tartrate 50 MG tablet 50 mg PO BID sertraline 50 MG tablet 50 mg PO QHS iron, carbonyl [Feosol] 45 MG capsule 65 mg PO DAILYCM insulin degludec [Tresiba FlexTouch U-100] 100 UNIT/ML insulin pen 10 unit subcut QHS colchicine 0.6 MG tablet 0.3 mg PO DAILY memantine 10 mg tablet 10 mg PO BID cephalexin 250 mg capsule 250 mg PO DAILY cholestyramine (with sugar) 4 gram powder in packet 1 ea PO TIDCM ferrous sulfate [Feosol] 325 mg (65 mg iron) tablet 325 mg PO DAILY ascorbic acid (vitamin C) [Vitamin C] 500 mg tablet 500 mg PO BID cholecalciferol (vitamin D3) [Vitamin D3] 125 mcg (5,000 unit) tablet 5,000 unit PO DAILY Primary Care Provider: Sneha Mabry Referrals: Sneha Mabry MD [Primary Care Provider] - Leonardo Aleman DPM [Med Staff - Active Staff] - 3-5 Days Disposition Disposition: Home, Self Care Discharge Date/Time: 03/25/23 15:53
[2023-03-25 12:38] LABS: Absolute Lymphocyte Count 0.62 X10^3/uL (0.83-4.51); Absolute Neutrophil Count 2.7 X10^3/uL (2.0-7.7); Basophil# 0.01 X10^3/uL; Basophil% 0.3 % (0-1); Eosinophil# 0.03 X10^3/uL; Eosinophils% 0.8 % (0-5); Hematocrit 33.7 % (37-47); Hemoglobin 10.6 g/dL (12.0-15.0); Lymphocyte # 0.62 X10^3/ul (0.83-4.51); Lymphocyte % 17.1 % (19-41); Mean Corp Hgb Conc 31.5 g/dL (32-36); Mean Corpuscular Hgb 31.2 pg (27.0-32.0); Mean Corpuscular Volume 99.1 fL (81-99); Mean Platelet Vol. 10.5 fl (6.2-12.0); Monocyte% 5.5 % (0-10); NRBC Flagged by Analyzer 0 % (0-5); Neutrophil # 2.74 X10^3/uL (2.7-7.7); Neutrophil % 75.7 % (47-70); POSITIVE COUNT YES; Platelet Count 55 K/mm3 (150-450); RBC Distribution Width CV 14.4 % (11.6-14.6); RBC Distribution Width SD 51.9 fl (35.1-43.9); White Blood Count 3.6 K/mm3 (4.4-11.0)
[2023-03-25 12:42] LABS: Anion Gap 3 (5-15); BUN 28 mg/dL (7-18); BUN/Creat Ratio 21.1 RATIO (10-20); Calcium,Total 9.1 mg/dL (8.5-10.1); Chloride 116 mmol/L (98-107); Creatinine, Serum 1.33 mg/dL (0.55-1.02); EST Glomerular Filtration Rate 40 mL/min (>60); Est Glom Filt Rate - Afr Amer 49 mL/min (>60); Glucose 189 mg/dL (74-106); Potassium 4.2 mmol/L (3.5-5.1); Sodium Level 140 mmol/L (136-145)
[2023-03-25 13:07] LABS: Lactic Acid 1.1 mmol/L (0.4-1.9)
--- NOTE | 2023-03-25 13:20 | RAD_ITS ---
STUDY: X-RAY - RIGHT FOOT CLINICAL: Female, 87 years old. Pain and swelling. TECHNIQUE: 3 view(s) of the foot. COMPARISON: None. FINDINGS: There is an enthesophyte involving the posterior superior calcaneus at the site of insertion of the Achilles tendon. Small plantar spur. Normal visualized subtalar, talonavicular, calcaneocuboid, tarsal and tarsometatarsal articulations. Normal metatarsi. Normal metatarsophalangeal joint of the great toe. Normal tibial and fibular sesamoid bones. Normal interphalangeal joint of the great toe. Normal phalanges of the great toe. Normal second through fifth metatarsophalangeal joints. Normal interphalangeal joints and phalanges of the lesser toes. Diffuse soft tissue swelling. RAD/Foot min 3 Views IMPRESSION: Soft tissue swelling. Calcaneal spurs. Electronically Signed: Jose Rowan MD at 13:50 EST ,
[2023-03-25 14:40] LABS: Mucous, Urine 0 SEEN /hpf (<or=2+)
[2023-03-25 14:48] LABS: Color, Urine Yellow (Yellow); Glucose, Dipstick Normal (Normal); Ketone-Dipstick Negative (Negative); Leukocyte Esterase-Dipstick 500 /ul (Negative); Nitrite-Dipstick Negative (Negative); Occult Blood-Urine 250 /ul (Negative); Protein-Dipstick 30 mg/dl (Negative); Specific Gravity, Urine 1.015 (1.002-1.030); Urine Bilirubin Dipstick Negative (Negative); Urine Clarity Sl. Cloudy (Clear); Urine Urobilinogen Normal (Normal)
[2023-03-25 14:56] LABS: Bacteria 1+ /hpf (None Seen); Red Blood Cells-Urine 25-50 SEEN /hpf (0-5); Squamous Epithelial Cells - UA 0-5 SEEN /hpf (5-10); White Blood Cells 25-50 SEEN /hpf (0-5)
[2023-03-25] MEDS: Doxycycline 100 MG CAPSULE PO (15:29)
[2023-03-25] MEDS: Ciprofloxacin 500 MG Tablet PO (15:29)
[2023-03-25 15:52] VITALS: BP 127/66; PULSE 73; RESP 15; O2SAT 94
== END 2023-03-25 15:53 | disposition home or self-care (01) ==
PROVIDERS: Emergency Provider Emergency Medicine; PCP Family Medicine; Visit Provider Emergency Medicine
DX: N39.0 Urinary tract infection, site not specified (principal); D69.6 Thrombocytopenia, unspecified; L03.211 Cellulitis of face; R53.1 Weakness; R29.898 Other symptoms and signs involving the musculoskeletal system; M79.89 Other specified soft tissue disorders; S90.822A Blister (nonthermal), left foot, initial encounter
CPT/HCPCS: 36415; 73630; 80048; 80053; 80061; 81001; 82306; 83036; 83605; 84439; 84443; 85025; 85027; 87070; 87077; 87086; 87088; 87186; 87205; 93971; 99285; P9612; A4216

== ENCOUNTER → 2023-03-25 | Outpatient (REF) | payer MEDICARE, OTHER, SELFPAY ==
[2023-03-25 08:57] LABS: Hematocrit 30.9 % (37-47); Hemoglobin 9.7 g/dL (12.0-15.0); Mean Corp Hgb Conc 31.4 g/dL (32-36); Mean Corpuscular Volume 98.7 fL (81-99); Mean Platelet Vol. 10.9 fl (6.2-12.0); POSITIVE COUNT YES; Platelet Count 52 K/mm3 (150-450); RBC Distribution Width CV 14.3 % (11.6-14.6); RBC Distribution Width SD 51.3 fl (35.1-43.9); Red Blood Count 3.13 M/mm3 (4.2-5.4); White Blood Count 3.2 K/mm3 (4.4-11.0)
[2023-03-25 08:59] LABS: Scan Indicated on CBC? Y/N NO
[2023-03-25 09:29] LABS: ALB/GLOB Ratio 1.1 RATIO (0.9-2.4); AST(SGOT) 22 U/L (15-37); Alanine Aminotransfer ALT/SGPT 28 U/L (13-56); Albumin, Serum 2.8 g/dL (3.2-5.0); Alkaline Phosphatase 138 U/L (45-117); Anion Gap 3 (5-15); BUN 28 mg/dL (7-18); BUN/Creat Ratio 22.2 RATIO (10-20); Calcium,Total 9.1 mg/dL (8.5-10.1); Chloride 117 mmol/L (98-107); Cholesterol 52 mg/dL (200); Creatinine, Serum 1.26 mg/dL (0.55-1.02); EST Glomerular Filtration Rate 43 mL/min (>60); Est Glom Filt Rate - Afr Amer 52 mL/min (>60); Globulin 2.5 g/dL (2.2-4.2); Glucose 154 mg/dL (74-106); High Density Lipoprotein 31 mg/dL; Potassium 3.9 mmol/L (3.5-5.1); Protein, Total 5.3 g/dL (6.4-8.2); Sodium Level 140 mmol/L (136-145); Thyroid Stim Hormone (TSH) 3.94 uIU/mL (0.358-3.74); Triglycerides 72 mg/dL; Very Low Density Lipoprotein 14 mg/dL (5-40)
[2023-03-25 11:08] LABS: Hemoglobin A1c 6.3 % (3.8-5.6)
== END ==
LOC: OLS.BROOKB 05:00
PROVIDERS: PCP Family Medicine; Visit Provider Family Medicine
DX: D64.9 Anemia, unspecified (principal); E78.5 Hyperlipidemia, unspecified; E03.9 Hypothyroidism, unspecified; E11.9 Type 2 diabetes mellitus without complications; E55.9 Vitamin D deficiency, unspecified; F03.90 Unspecified dementia, unspecified severity, without behavioral disturbance, psychotic disturbance, mood disturbance, and anxiety
CPT/HCPCS: 36415; 80053; 80061; 82306; 83036; 84439; 84443; 85027

== ENCOUNTER → 2023-04-12 | Outpatient (REF) | payer MEDICARE, OTHER, SELFPAY ==
[2023-04-12 09:26] LABS: Absolute Lymphocyte Count 0.83 X10^3/uL (0.83-4.51); Absolute Neutrophil Count 2.6 X10^3/uL (2.0-7.7); Basophil# 0.01 X10^3/uL; Basophil% 0.3 % (0-1); Eosinophil# 0.09 X10^3/uL; Eosinophils% 2.5 % (0-5); Hematocrit 36.4 % (37-47); Hemoglobin 11.3 g/dL (12.0-15.0); Lymphocyte # 0.83 X10^3/ul (0.83-4.51); Lymphocyte % 22.6 % (19-41); Mean Corpuscular Hgb 31.9 pg (27.0-32.0); Mean Corpuscular Volume 102.8 fL (81-99); Mean Platelet Vol. 10.4 fl (6.2-12.0); Monocyte# 0.17 X10^3/uL; Monocyte% 4.6 % (0-10); NRBC Flagged by Analyzer 0 % (0-5); Neutrophil # 2.56 X10^3/uL (2.7-7.7); Neutrophil % 69.7 % (47-70); POSITIVE COUNT YES; Platelet Count 55 K/mm3 (150-450); RBC Distribution Width CV 14.1 % (11.6-14.6); RBC Distribution Width SD 53.5 fl (35.1-43.9); Red Blood Count 3.54 M/mm3 (4.2-5.4); White Blood Count 3.7 K/mm3 (4.4-11.0)
[2023-04-12 10:28] LABS: AST(SGOT) 38 U/L (15-37); Alanine Aminotransfer ALT/SGPT 51 U/L (13-56); Albumin, Serum 3.2 g/dL (3.2-5.0); Alkaline Phosphatase 174 U/L (45-117); Anion Gap 5 (5-15); BUN 25 mg/dL (7-18); BUN/Creat Ratio 19.8 RATIO (10-20); Calcium,Total 9.7 mg/dL (8.5-10.1); Chloride 117 mmol/L (98-107); Cholesterol 84 mg/dL (200); Creatinine, Serum 1.26 mg/dL (0.55-1.02); EST Glomerular Filtration Rate 43 mL/min (>60); Est Glom Filt Rate - Afr Amer 52 mL/min (>60); Globulin 2.6 g/dL (2.2-4.2); Glucose 147 mg/dL (74-106); High Density Lipoprotein 49 mg/dL; Potassium 4.6 mmol/L (3.5-5.1); Protein, Total 5.8 g/dL (6.4-8.2); Sodium Level 144 mmol/L (136-145); Triglycerides 77 mg/dL; Very Low Density Lipoprotein 15 mg/dL (5-40)
== END ==
LOC: OLS.BROOKB 05:00
PROVIDERS: PCP Family Medicine; Visit Provider Family Medicine
DX: F03.90 Unspecified dementia, unspecified severity, without behavioral disturbance, psychotic disturbance, mood disturbance, and anxiety (principal); K21.9 Gastro-esophageal reflux disease without esophagitis; E11.9 Type 2 diabetes mellitus without complications; K74.60 Unspecified cirrhosis of liver
CPT/HCPCS: 36415; 80048; 80061; 80076; 83036; 85025

== ENCOUNTER 2023-04-29 11:00 | Outpatient (RCR) | payer MEDICARE, OTHER, SELFPAY ==
[2023-04-08 10:11] VITALS: BP 132/34; PULSE 63; RESP 16; TEMP 36.2; BMI 21.6
--- NOTE | 2023-04-08 12:23 | PCM.WC.HP ---
History of Present Illness Date of Service: 04/08/23 Chief Complaint: Left Facial and Upper Extremity Wound History of Wound: Ms Penaloza is an 87 yo who was referred here due to non healing facial and left forearm wound. Had previously followed up with a Bridge Painter Helper. History of recurrent falls, fell with injury to her left face with subsequent graft closure in October at [facility]. Recent visit to her surgeon due to non healing/significant slough for which she had debridement in office. Left upper extremity wound was said to be 2 weeks ago following another fall. Has had some dressing changes in the facility however decided to come to the wound center due to nonclosure/delay in healing. History of diabetes mellitus which is said to be well-controlled. Also history of dementia and lately, has had poor appetite. No chills, fever or otherwise feeling of unwell. [facility], [facility] Medical History (Updated 04/08/23 @ 12:[address] Paul Hill MD) Non-healing surgical wound Open facial wound Open wound of left forearm Home Medications levothyroxine 25 mcg tablet 50 mcg PO DAILY 12/21/12 [History Last Taken Unknown] allopurinol 300 mg tablet 300 mg PO DAILY 06/13/16 [History Last Taken Unknown] atorvastatin 40 mg tablet 40 mg PO DAILY 11/12/17 [History Last Taken Unknown] colchicine 0.6 mg capsule 0.3 mg PO DAILY 11/12/17 [History Last Taken Unknown] insulin degludec 100 unit/mL (3 mL) subcutaneous pen (Tresiba FlexTouch U-100 insulin) 10 unit subcut QHS 11/12/17 [History Last Taken Unknown] metoprolol tartrate 50 mg tablet 50 mg PO BID 11/12/17 [History Last Taken Unknown] sertraline 50 mg tablet 50 mg PO QHS 11/12/17 [History Last Taken Unknown] ascorbic acid (vitamin C) 500 mg tablet (Vitamin C) 500 mg PO BID 03/19/23 [History Last Taken Unknown] cephalexin 250 mg capsule 250 mg PO DAILY 03/19/23 [History Last Taken Unknown] cholecalciferol (vitamin D3) 125 mcg (5,000 unit) tablet (Vitamin D3) 5,000 unit PO DAILY 03/19/23 [History Last Taken Unknown] cholestyramine (with sugar) 4 gram powder for susp in a packet 1 ea PO TIDCM 03/19/23 [History Last Taken Unknown] ferrous sulfate 325 mg (65 mg iron) tablet (Feosol) 325 mg PO DAILY 03/19/23 [History Last Taken Unknown] memantine 10 mg tablet 10 mg PO BID 03/19/23 [History Last Taken Unknown] acetaminophen 650 mg tablet,extended release 650 mg PO Q8H PRN fever or pain 04/08/23 [History Last Taken Unknown] cetylpyridinium chloride nyla mucous membrane .Q3H PRN sore throat 04/08/23 [History Last Taken Unknown] loperamide 2 mg capsule (Anti-Diarrheal (loperamide)) 4 mg PO Q6H PRN loose stool 04/08/23 [History Last Taken Unknown] Allergy/AdvReac Type Severity Reaction Status Date / Time amoxicillin [From Augmentin] Allergy Severe Hives Verified 04/08/23 10:39 clavulanic acid Allergy Severe Hives Verified 04/08/23 10:39 [From Augmentin] sulfamethoxazole AdvReac Nausea Verified 04/08/23 10:39 [From Bactrim] trimethoprim [From Bactrim] AdvReac Nausea Verified 04/08/23 10:39 Social History Smoking Status: Never smoker ROS Constitutional Constitutional: Reports frequent falls and weakness; Denies excessive sweating, fever(s), headache(s) or increased appetite Eyes Eyes: Denies change in eye color, decreased night vision, discharge from eye(s), discongugate gaze, erythema, loss of central vision or loss of peripheral vision ENT HEENT: Denies dysphagia, ear discharge, epistaxis, foreign body in nose, halitosis, hoarseness or lip swelling Cardiovascular Cardiovascular: Reports edema; Denies cold extremities, cyanosis, diaphoresis, dizziness, dyspnea at rest or erythema on extremities Respiratory/Chest Respiratory/Chest: Denies dry cough, dyspnea on exertion, excessive phlegm production, hemoptysis, hoarseness, inability to speak or nail bed cyanosis Gastrointestinal Gastrointestinal: Reports anorexia; Denies belching, bloating, chewing difficulty, coffee ground emesis or dry heaves Genitourinary Genitourinary: Denies abdominal discomfort, contractions, flank pain, genital pain or itching Musculoskeletal Musculoskeletal: Reports extremity pain; Denies joint swelling, neck pain or tremors Integumentary Integumentary: Reports dry skin; Denies bleeding lesions, erythema, hirsutism, jaundice or lesions Neurologic Neurologic: Reports frequent falls; Denies abnormal speech, behavior changes, burning sensations, confusion, disequilibrium or loss of vision Psychiatric Psychiatric: Reports change in appetite; Denies auditory hallucinations, behavioral changes, confusion, hallucinations or irritability Endocrine Endocrinology: Denies deepening of the voice, excessive sweating, fatigue, heat intolerance, increase in ring/shoe/hat size or palpitations Hematologic/Lymphatic Hematologic/Lymphatic: Denies anemia or easy bruising Allergic/Immunologic Allergic/Immunologic: Denies itchy eyes, lip swelling, throat swelling, tongue swelling, hives, eczemia or wheezing Vital Signs Vital Signs Vital Signs: 04/08/23 10:11 Temperature 97.1 F L Temperature Source Temporal Pulse Rate 63 Respiratory Rate 16 Blood Pressure 132/34 H Blood Pressure Mean 66 Blood Pressure Source Monitor Blood Pressure Position Sitting Blood Pressure Location Right Arm Oxygen Delivery Method Room Air Weight Weight: 122 lb Body Mass Index (BMI) 21.6 Physical Exam Const alert and no apparent distress General Appearance: cooperative, well kempt and well developed HEENT normocephalic and hearing grossly normal bilaterally Eyes EOMs intact bilaterally Neck full ROM General: normal visual inspection Resp normal respiratory effort and normal air movement Effort and Inspection: able to speak in complete sentences Cardio regular rate and regular rhythm GI soft to palpation and non-tender Extremity General Extremity: edema Skin Wounds: wounds noted Neuro CN's II-XII intact bilaterally and moves all extremities Psych mental status grossly normal, thought process normal, cooperative and affect normal Debridement Note Debridement Note Wound debrided: Left Forearm Type of Debridement: Excisional debridement Anesthesia Used: 4% Lidocaine Solution Depth: Down to and including healthy tissue and in the subcutaneous layer Percentage of wound debrided: 100 Instrument Used: 5mm curette Tissue Removed: Slough and Devitalized Tissue Severity: Fat Layer Exposed Amount of bleeding with debridement: Mild Bleeding Controlled with: Pressure Patient tolerated procedure: Patient tolerated procedure well Post-Debridement Measurements and Additional Note: Post-Debridement Measurements/Treatment - Nurse 1 - General Ulcer Assessment Start: 04/08/23 10:10 Freq: Status: Active Protocol: [email or web address] Activity Type Activity Date Activity User E-sign Co-sign Detail Recorded Client Recorded Date Recorded By Document 04/08/23 10:11 [facility] Desktop 04/08/23 10:36 [facility] 04/08/23 10:11 - Today's Visit Information Type of service Initial Visit Arrival Mode Ambulatory, Walker Accompanied by daughter Patient Identification Verified (Name & Yes ) Patient Requires Transmission-Based No Precautions Height and Weight Height 5 ft 3 in Weight 122 lb Weight in Pounds 122.0 lbs Weight Measurement Method Estimated by Patient Body Mass Index (BMI) 21.6 BMI Classification Normal BSA - Adonis 1.57 Vital Signs Temperature (97.8 F-99.1 F) 97.1 F L Temperature Source Temporal Pulse Rate (60-100) 63 Pulse Location Monitor Respiratory Rate (12-18) 16 Respiratory rate source Observation Oxygen Delivery Method Room Air Blood Pressure (90/60-120/80) 132/34 H Blood Pressure Mean 66 Source Monitor Position Sitting Blood Pressure Location Right Arm History Since Last Visit- (Skip if this is Patient's initial visit) Left Footwear Regular Shoe Right Footwear Regular Shoe Pain Scale: 0-10 Numeric Is Patient Pain Free? Yes Communication Assessment Preferred language Greek Absorption Plant Operator Helper Required No Able to Read No: dementia w/ aphasia Able to Write No: can read/ trouble w/ writing Right Hearing Abillity Normal Left Hearing Abillity Normal Visual Assistive Devices Glasses Teaching Assessment Preferences Verbal,Written, Audio/Visual, Demonstration Barriers to Learning Knowledge Deficit Readiness To Learn Good Willingness to Engage in Self Management Med Activies Readiness to Engage in Self Management Med Activities Anxiety Level Calm Cooperation Cooperative Perception Coherent Interest in Health Problem Asks Questions Education Importance Acknowledges Need Does Patient Smoke tobacco or other No substances Smoking Status Never smoker Is Patient Diabetic Yes Functional Assessment Recent Decline in Ability to Perform Denies Any Declines 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 Cultural/Advent Needs that may affect No Treatment Plan Teaching: Wound Center *Welcome to the Wound Center -Person Taught Patient,Family -Teaching Method Discussion -Response to teaching Verbalize understanding Welcome to the Wound Care Center Greek - Nurse 1 - General Ulcer Measurement Start: 04/08/23 10:10 Freq: Status: Active Protocol: Activity Type Activity Date Activity User E-sign Co-sign Detail Recorded Client Recorded Date Recorded By Document 04/08/23 10:11 [facility] Desktop 04/08/23 10:36 [facility] 04/08/23 10:11 Wound Center Nurse 1 #2- L FACIAL CLUSTER -Combined with other wound No -Current Size (cm) - Length 6.7 -Current Size (cm) - Width 2.2 -Current Size (cm) - Depth 0.1 -Total Square Cm 14.74 -Date of Last Picture (Recall this 04/08/23 field) -Photo Taken Yes -Tunneling No -Undermining/Tunneling No -Circular Undermining No -Exudate Amt Medium -Exudate Type Serosanguineous -Wound Margin Distinct, Outline Attached -Granulation Amt Medium (34-66%) -Granulation Quality Red -Slough/Fibrin Yes -Necrosis Amt Medium (34-66%) -Necrotic Tissue Type Eschar -Texture (Dede-wound Skin Appearance) Assessed, Scarring -Moisture (Dede-wound Skin Appearance) Assessed -Color (Dede-wound Skin Appearance) Assessed, Ecchymosis -Temperature (Dede-wound Skin No Abnormality Appearance) (Pt Warm) -Tenderness on Palpation (Dede-wound No Skin Appearance) -Ulcer Cleansing Rinsed/ Irrigated with Saline -Foul Odor after Cleansing No -Anesthetic Used 5% Lidocaine Gel #1- LFA -Combined with other wound No -Current Size (cm) - Length 3.5 -Current Size (cm) - Width 1.6 -Current Size (cm) - Depth 0.1 -Total Square Cm 5.60 -Date of Last Picture (Recall this 04/08/23 field) -Photo Taken Yes -Tunneling No -Undermining/Tunneling No -Circular Undermining No -Exudate Amt Medium -Exudate Type Serosanguineous -Wound Margin Distinct, Outline Attached -Granulation Amt Large (67-100%) -Granulation Quality Red -Slough/Fibrin No -Necrosis Amt None Present (0 %) -Texture (Dede-wound Skin Appearance) Assessed, Scarring -Moisture (Dede-wound Skin Appearance) Assessed -Temperature (Dede-wound Skin No Abnormality Appearance) (Pt Warm) -Tenderness on Palpation (Dede-wound No Skin Appearance) -Ulcer Cleansing Rinsed/ Irrigated with Saline -Foul Odor after Cleansing No -Anesthetic Used 4% Lidocaine Solution WC - Nurse 2 - General Ulcer CM Notes Start: 04/08/23 10:10 Freq: Status: Active Protocol: Activity Type Activity Date Activity User E-sign Co-sign Detail Recorded Client Recorded Date Recorded By Document 04/08/23 11:00 [id number] 04/08/23 11:27 [facility] 04/08/23 11:00 Wound Center Nurse 2 #2- L FACIAL CLUSTER -Time 11:01 -Correct Patient Yes -Correct Side, Site, Position Yes -Correct Procedure Yes -Procedure Performed Yes -Type of Procedure Debridement -Clinical Debridement Epidermis / Dermis -Tissue Removed Epidermis, Dermis -Post Debridement (cm) - Length 6.0 -Post Debridement (cm) - Width 2.5 -Post Debridement (cm) - Depth 0.1 -Total Square (Post) (cm) 15.00 -Area of Debridement (cm) - Length 6.0 -Area of Debridement (cm) - Width 2.5 -Total Square (Area) (cm) 15.00 -Tunneling No -Undermining/Tunneling No -Circular Undermining No -Wound/Ulcer Outcome Not Healed -Ulcer Cleansing Rinsed/ Irrigated with Saline -Foul Odor after Cleansing No -Bioengineered Tissue No -Bleeding Controlled with Pressure -Treatment Response Procedure Tolerated Well -Debridement - Open, 1st 20sq cm Yes #1- LFA -Time 11:01 -Correct Patient Yes -Correct Side, Site, Position Yes -Correct Procedure Yes -Procedure Performed Yes -Type of Procedure Debridement -Clinical Debridement Subcutaneous -Tissue Removed Subcutaneous -Post Debridement (cm) - Length 3.5 -Post Debridement (cm) - Width 2.0 -Post Debridement (cm) - Depth 0.1 -Total Square (Post) (cm) 7.00 -Area of Debridement (cm) - Length 3.5 -Area of Debridement (cm) - Width 2.0 -Total Square (Area) (cm) 7.00 -Tunneling No -Undermining/Tunneling No -Circular Undermining No -Wound/Ulcer Outcome Not Healed -Ulcer Cleansing Rinsed/ Irrigated with Saline -Foul Odor after Cleansing No -Bioengineered Tissue No -Bleeding Controlled with Pressure -Treatment Response Procedure Tolerated Well -Debridement - Subq, 1st 20sq cm Yes Pain Scale: 0-10 Numeric Is Patient Pain Free? Yes WC - Nurse 3 - General Ulcer D/C NN Start: 04/08/23 10:10 Freq: Status: Active Protocol: Activity Type Activity Date Activity User E-sign Co-sign Detail Recorded Client Recorded Date Recorded By Document 04/08/23 11:29 DL Desktop 04/08/23 11:32 DL 04/08/23 11:29 Wound Care Center Nurse 3 #2- L FACIAL CLUSTER -Ulcer Cleansing Rinsed/ Irrigated with Saline -Foul Odor after Cleansing No -Primary Dressing Applied Aquacel Extra, NonAdherent Contact Layer -Primary Dressing Covered/Secured with Dry Gauze, Secured with Tape -Aquacel Extra 1 #1- LFA -Ulcer Cleansing Rinsed/ Irrigated with Saline -Foul Odor after Cleansing No -Primary Dressing Applied NonAdherent Contact Layer -Other Dressing aquacel ex -Primary Dressing Covered/Secured with Dry Gauze, Secured with Tape Treatment Response Procedure Tolerated Well Pain Scale: 0-10 Numeric Is Patient Pain Free? Yes WC - Visit Discharge Discharge Condition Stable Ambulatory Status Ambulatory, Walker Notes: BP rechecked: 158/68. Dr. Hill aware. Facility [facility] Orders Sent Yes Additional Wound Wound debrided: Left Facial Wound Type of Debridement: Selective debridement Anesthesia Used: 4% Lidocaine Solution Depth: Down to and including healthy tissue Percentage of wound debrided: 100 Tissue Removed: Devitalized Tissue Severity: Fat Layer Exposed Amount of bleeding with debridement: Mild Bleeding Controlled with: Pressure Patient tolerated procedure: Patient tolerated procedure well Charges/Coding Visit Charges Office Visits / Consults: [id number] OV L3 New 30min Procedures Integumentary [id number]: [id number] Lazara subq tissue 20 sq cm/< Assessment/Plan Assessment/Plan (1) Open wound of left forearm: CODE(S): S51.802A - Unspecified open wound of left forearm, initial encounter (2) Non-healing surgical wound: CODE(S): T81.89XA - Other complications of procedures, not elsewhere classified, initial encounter (3) Open facial wound: CODE(S): S01.80XA - Unspecified open wound of other part of head, initial encounter PLAN: Plan Debridement done as documented above, procedure was well-tolerated. No clinical concerns for infection at this time so no cultures taken. As above, daughter states that her diabetes is well-controlled with most recent A1c around 6. Diet is not optimal, Timur twice daily recommended. For wound care, switch to Aquacel extra daily. Cover with Adaptic gauze/foam dressing. Change daily to twice daily depending on drainage. Their questions were answered and they were advised to call with any further questions or concerns. Follow-up in a week or sooner if needed. This note was generated with Dragon dictation software. It may contain incorrect words, spelling, and punctuation that were not noted in checking the note before signing.
[2023-04-15 11:16] VITALS: BP 167/43; PULSE 60; RESP 18; TEMP 35.7; BMI 21.6
--- NOTE | 2023-04-15 12:33 | PCM.WC.PN ---
History of Present Illness Date of Service: 04/15/23 Chief Complaint: Left Facial and Upper Extremity Wound History of Wound: Ms Penaloza is an 87 yo who was referred here due to non healing facial and left forearm wound. Had previously followed up with a Leasing Property Manager. History of recurrent falls, fell with injury to her left face with subsequent graft closure in October at [place]. Recent visit to her surgeon due to non healing/significant slough for which she had debridement in office. Left upper extremity wound was said to be 2 weeks ago following another fall. Has had some dressing changes in the facility however decided to come to the wound center due to nonclosure/delay in healing. History of diabetes mellitus which is said to be well-controlled. Also history of dementia and lately, has had poor appetite. No chills, fever or otherwise feeling of unwell. Progress of Wound: No new concerns reported at this time. Some improvement noted. Objective Data Objective Data Vital Signs: Vital Signs Temp Pulse Resp BP O2 Del Method 96.2 F L 60 18 167/43 H Room Air 04/15/23 11:16 04/15/23 11:16 04/15/23 11:16 04/15/23 11:16 04/08/23 10:11 Oxygen Delivery Method Room Air Weight: 122 lb Body Mass Index (BMI) 21.6 Charges/Coding Procedures Integumentary [id number]: [id number] Lazara subq tissue 20 sq cm/< Physical Exam Const alert and no apparent distress General Appearance: cooperative, well kempt and well developed HEENT normocephalic and hearing grossly normal bilaterally Eyes EOMs intact bilaterally Neck full ROM General: normal visual inspection Resp normal respiratory effort Effort and Inspection: able to speak in complete sentences Skin Wounds: wounds noted Neuro CN's II-XII intact bilaterally and moves all extremities Psych mental status grossly normal, thought process normal, cooperative and affect normal Debridement Note Debridement Note Wound debrided: Left Forearm Type of Debridement: Excisional debridement Anesthesia Used: 5% Lidocaine Gel Depth: Down to and including healthy tissue and in the subcutaneous layer Percentage of wound debrided: 100 Instrument Used: 5mm curette Tissue Removed: Slough and Devitalized Tissue Severity: Fat Layer Exposed Amount of bleeding with debridement: Mild Bleeding Controlled with: Pressure Patient tolerated procedure: Patient tolerated procedure well Post-Debridement Measurements and Additional Note: Post-Debridement Measurements/Treatment WC - Nurse 1 - General Ulcer Assessment Start: 04/08/23 10:10 Freq: Status: Active Protocol: [email or web address] Activity Type Activity Date Activity User E-sign Co-sign Detail Recorded Client Recorded Date Recorded By Document 04/08/23 10:11 BM Desktop 04/08/23 10:36 [facility] Document 04/15/23 11:16 RB Desktop 04/15/23 11:19 RB 04/08/23 04/15/23 10:11 11:16 - Today's Visit Information Type of service Initial Visit Follow-up Visit (Physician/ICT BUSINESS ANALYST ) Arrival Mode Ambulatory, Walker Walker Transfer Assistance None Accompanied by daughter Patient Identification Verified (Name & Yes Yes ) Patient Requires Transmission-Based No No Precautions Height and Weight Height 5 ft 3 in Weight 122 lb Weight in Pounds 122.0 lbs Weight Measurement Method Estimated by Patient Body Mass Index (BMI) 21.6 21.6 BMI Classification Normal Normal BSA - Adnois 1.57 Vital Signs Temperature (97.8 F-99.1 F) 97.1 F L 96.2 F L Temperature Source Temporal Temporal Pulse Rate (60-100) 63 60 Pulse Location Monitor Monitor Respiratory Rate (12-18) 16 18 Respiratory rate source Observation Observation Oxygen Delivery Method Room Air Blood Pressure (90/60-120/80) 132/34 H 167/43 H Blood Pressure Mean (mm Hg) 66 84 Source Monitor Monitor Position Sitting Semi-Fowlers Blood Pressure Location Right Arm Left Arm History Since Last Visit- (Skip if this is Patient's initial visit) Have you changed medications since your No last visit? Any new allergies or adverse reactions No Had a fall/change in ADL's that may No increase risk of falls Signs or symptoms of abuse and/or No neglect since last visit Have you been in the hospital since your No last visit? Has dressing in place as prescribed Yes Has compression in place as prescribed No Has offloadiing in place as prescribed No Experienced any changes in pain level or No management Left Footwear Regular Shoe Right Footwear Regular Shoe Pain Scale: 0-10 Numeric Is Patient Pain Free? Yes Yes Communication Assessment Preferred language Macedonian Test Conductor Required No Able to Read No: dementia w/ aphasia Able to Write No: can read/ trouble w/ writing Right Hearing Abillity Normal Left Hearing Abillity Normal Visual Assistive Devices Glasses Teaching Assessment Preferences Verbal,Written, Audio/Visual, Demonstration Barriers to Learning Knowledge Deficit Readiness To Learn Good Willingness to Engage in Self Management Med Activies Readiness to Engage in Self Management Med Activities Anxiety Level Calm Cooperation Cooperative Perception Coherent Interest in Health Problem Asks Questions Education Importance Acknowledges Need Does Patient Smoke tobacco or other No substances Smoking Status Never smoker Is Patient Diabetic Yes Functional Assessment Recent Decline in Ability to Perform Denies Any Declines Culture/Confucianism/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 Cultural/Confucianism Needs that may affect No Treatment Plan Teaching: Wound Center *Welcome to the Wound Center -Person Taught Patient,Family -Teaching Method Discussion -Response to teaching Verbalize understanding Welcome to the Wound Care Center Macedonian WC - Nurse 1 - General Ulcer Measurement Start: 04/08/23 10:10 Freq: Status: Active Protocol: Activity Type Activity Date Activity User E-sign Co-sign Detail Recorded Client Recorded Date Recorded By Document 04/08/23 10:11 BM Desktop 04/08/23 10:36 BMF Document 04/15/23 11:16 RB Desktop 04/15/23 11:19 RB 04/08/23 04/15/23 10:11 11:16 Wound Center Nurse 1 #2- L FACIAL CLUSTER -Combined with other wound No No -Current Size (cm) - Length 6.7 1.6 -Current Size (cm) - Width 2.2 1 -Current Size (cm) - Depth 0.1 0.1 -Total Square Cm 14.74 1.6 -Date of Last Picture (Recall this 04/08/23 field) -Photo Taken Yes Yes -Tunneling No No -Undermining/Tunneling No No -Circular Undermining No No -Exudate Amt Medium Medium -Exudate Type Serosanguineous Serosanguineous -Wound Margin Distinct, Distinct, Outline Outline Attached Attached -Granulation Amt Medium (34-66%) Medium (34-66%) -Granulation Quality Red Loyal -Slough/Fibrin Yes Yes -Necrosis Amt Medium (34-66%) Medium (34-66%) -Necrotic Tissue Type Eschar Adherent Slough -Structure Exposed N/A -Texture (Dede-wound Skin Appearance) Assessed, Assessed, Scarring Scarring -Moisture (Dede-wound Skin Appearance) Assessed Assessed -Color (Dede-wound Skin Appearance) Assessed, Assessed Ecchymosis -Temperature (Dede-wound Skin No Abnormality No Abnormality Appearance) (Pt Warm) (Pt Warm) -Tenderness on Palpation (Dede-wound No No Skin Appearance) -Ulcer Cleansing Rinsed/ Wound Cleanser Irrigated with Saline -Foul Odor after Cleansing No No -Anesthetic Used 5% Lidocaine 5% Lidocaine Gel Gel #1- LFA -Combined with other wound No No -Current Size (cm) - Length 3.5 3.2 -Current Size (cm) - Width 1.6 1.5 -Current Size (cm) - Depth 0.1 0.1 -Total Square Cm 5.60 4.80 -Date of Last Picture (Recall this 04/08/23 field) -Photo Taken Yes Yes -Tunneling No No -Undermining/Tunneling No No -Circular Undermining No No -Exudate Amt Medium Medium -Exudate Type Serosanguineous Serosanguineous -Wound Margin Distinct, Distinct, Outline Outline Attached Attached -Granulation Amt Large (67-100%) Medium (34-66%) -Granulation Quality Red Loyal -Slough/Fibrin No Yes -Necrosis Amt None Present (0 Large (67-100%) %) -Necrotic Tissue Type Adherent Slough -Structure Exposed N/A -Texture (Dede-wound Skin Appearance) Assessed, Scarring Scarring -Moisture (Dede-wound Skin Appearance) Assessed Assessed -Color (Dede-wound Skin Appearance) Assessed -Temperature (Dede-wound Skin No Abnormality No Abnormality Appearance) (Pt Warm) (Pt Warm) -Tenderness on Palpation (Dede-wound No No Skin Appearance) -Ulcer Cleansing Rinsed/ Wound Cleanser Irrigated with Saline -Foul Odor after Cleansing No No -Anesthetic Used 4% Lidocaine 5% Lidocaine Solution Gel WC - Nurse 2 - General Ulcer CM Notes Start: 04/08/23 10:10 Freq: Status: Active Protocol: Activity Type Activity Date Activity User E-sign Co-sign Detail Recorded Client Recorded Date Recorded By Document 04/08/23 11:00 [id number] 04/08/23 11:27 GM Document 04/15/23 11:34 GM Desktop 04/15/23 11:39 GM 04/08/23 04/15/23 11:00 11:34 Wound Center Nurse 2 #2- L FACIAL CLUSTER -Time 11:01 11:35 -Correct Patient Yes Yes -Correct Side, Site, Position Yes Yes -Correct Procedure Yes Yes -Procedure Performed Yes Yes -Type of Procedure Debridement Debridement -Clinical Debridement Epidermis / Subcutaneous Dermis -Tissue Removed Epidermis, Subcutaneous Dermis -Post Debridement (cm) - Length 6.0 2.0 -Post Debridement (cm) - Width 2.5 1.0 -Post Debridement (cm) - Depth 0.1 0.1 -Total Square (Post) (cm) 15.00 2.00 -Area of Debridement (cm) - Length 6.0 2.0 -Area of Debridement (cm) - Width 2.5 1 -Total Square (Area) (cm) 15.00 2.0 -Tunneling No No -Undermining/Tunneling No No -Circular Undermining No No -Wound/Ulcer Outcome Not Healed Not Healed -Ulcer Cleansing Rinsed/ Rinsed/ Irrigated with Irrigated with Saline Saline -Foul Odor after Cleansing No No -Bioengineered Tissue No No -Bleeding Controlled with Pressure Pressure -Treatment Response Procedure Tolerated Well -Debridement - Open, 1st 20sq cm Yes -Debridement - Subq, 1st 20sq cm No #1- LFA -Time 11:01 11:35 -Correct Patient Yes Yes -Correct Side, Site, Position Yes Yes -Correct Procedure Yes Yes -Procedure Performed Yes Yes -Type of Procedure Debridement Debridement -Clinical Debridement Subcutaneous Subcutaneous -Tissue Removed Subcutaneous Subcutaneous -Post Debridement (cm) - Length 3.5 3.2 -Post Debridement (cm) - Width 2.0 1.3 -Post Debridement (cm) - Depth 0.1 0.1 -Total Square (Post) (cm) 7.00 4.16 -Area of Debridement (cm) - Length 3.5 3.2 -Area of Debridement (cm) - Width 2.0 1.3 -Total Square (Area) (cm) 7.00 4.16 -Tunneling No No -Undermining/Tunneling No No -Circular Undermining No No -Wound/Ulcer Outcome Not Healed Not Healed -Ulcer Cleansing Rinsed/ Rinsed/ Irrigated with Irrigated with Saline Saline -Foul Odor after Cleansing No No -Bioengineered Tissue No No -Bleeding Controlled with Pressure Pressure -Treatment Response Procedure Procedure Tolerated Well Tolerated Well -Debridement - Subq, 1st 20sq cm Yes Yes Pain Scale: 0-10 Numeric Is Patient Pain Free? Yes Yes - Nurse 3 - General Ulcer D/C NN Start: 04/08/23 10:10 Freq: Status: Active Protocol: Activity Type Activity Date Activity User E-sign Co-sign Detail Recorded Client Recorded Date Recorded By Document 04/08/23 11:29 DL Desktop 04/08/23 11:32 DL Document 04/15/23 11:52 RB Desktop 04/15/23 11:54 RB 04/08/23 04/15/23 11:29 11:52 Wound Care Center Nurse 3 #2- L FACIAL CLUSTER -Ulcer Cleansing Rinsed/ Rinsed/ Irrigated with Irrigated with Saline Saline -Foul Odor after Cleansing No -Primary Dressing Applied Aquacel Extra, Aquacel Extra, NonAdherent NonAdherent Contact Layer Contact Layer -Primary Dressing Covered/Secured with Dry Gauze, Dry Gauze, Secured with Secured with Tape Tape -Aquacel Extra 1 1 #1- LFA -Ulcer Cleansing Rinsed/ Rinsed/ Irrigated with Irrigated with Saline Saline -Foul Odor after Cleansing No -Primary Dressing Applied NonAdherent NonAdherent Contact Layer Contact Layer -Other Dressing aquacel ex aquacel extra -Primary Dressing Covered/Secured with Dry Gauze, Dry Gauze, Secured with Secured with Tape Tape -Other Covering silicone tape Treatment Response Procedure Procedure Tolerated Well Tolerated Well Pain Scale: 0-10 Numeric Is Patient Pain Free? Yes Yes WC - Visit Discharge Discharge Condition Stable Stable Ambulatory Status Ambulatory, Wheelchair Walker Transportation Private Auto Medication Reconcilliation completed & No provided to patient/care provider Clinical Summary of Care Provided Yes Notes: BP rechecked: 158/68. Dr. Sergio jiménez. Facility Type Library Sales Consultant Care Facility Orders Sent Yes Additional Wound Wound debrided: Left Facial Wound Type of Debridement: Excisional debridement Anesthesia Used: 5% Lidocaine Gel Depth: Down to and including healthy tissue and in the subcutaneous layer Percentage of wound debrided: 100 Instrument Used: 5mm curette Tissue Removed: Devitalized Tissue Severity: Fat Layer Exposed Amount of bleeding with debridement: Mild Bleeding Controlled with: Pressure Patient tolerated procedure: Patient tolerated procedure well Assessment/Plan Assessment/Plan (1) Open wound of left forearm: CODE(S): S51.802A - Unspecified open wound of left forearm, initial encounter PLAN: Traumatic. Laceration (2) Non-healing surgical wound: CODE(S): T81.89XA - Other complications of procedures, not elsewhere classified, initial encounter (3) Open facial wound: CODE(S): S01.80XA - Unspecified open wound of other part of head, initial encounter PLAN: Plan Debridement done as documented above, procedure was well-tolerated. Improving. Continue Aquacel extra. Cover with Adaptic, gauze/foam dressing. Change daily to twice daily depending on drainage. Continue Timur daily to twice daily and other chronic wound care management/recommendations. Their questions were answered and they were advised to call with any further questions or concerns. Follow-up in a week or sooner if needed. This note was generated with [employer] dictation software. It may contain incorrect words, spelling, and punctuation that were not noted in checking the note before signing.
[2023-04-22 10:55] VITALS: BP 136/44; PULSE 64; RESP 16; TEMP 36.7; BMI 21.6
--- NOTE | 2023-04-22 11:27 | PCM.WC.PN ---
History of Present Illness Date of Service: 04/22/23 Chief Complaint: Left Facial and Upper Extremity Wound History of Wound: Ms Penaloza is an 87 yo who was referred here due to non healing facial and left forearm wound. Had previously followed up with a Critical Care Specialist. History of recurrent falls, fell with injury to her left face with subsequent graft closure in October at [place]. Recent visit to her surgeon due to non healing/significant slough for which she had debridement in office. Left upper extremity wound was said to be 2 weeks ago following another fall. Has had some dressing changes in the facility however decided to come to the wound center due to nonclosure/delay in healing. History of diabetes mellitus which is said to be well-controlled. Also history of dementia and lately, has had poor appetite. No chills, fever or otherwise feeling of unwell. Progress of Wound: No new concerns reported by the patient or daughter. Crusting noted on the face. Adaptic not applied as recommended. Otherwise some improvement noted in both wounds. Objective Data Objective Data Vital Signs: Vital Signs Temp Pulse Resp BP O2 Del Method 98.1 F 64 16 136/44 H Room Air 04/22/23 10:55 04/22/23 10:55 04/22/23 10:55 04/22/23 10:55 04/22/23 10:55 Oxygen Delivery Method Room Air Weight: 122 lb Body Mass Index (BMI) 21.6 Charges/Coding Procedures Integumentary 111xxx-113xx: [id number] Lazara subq tissue 20 sq cm/< Physical Exam Const alert and no apparent distress General Appearance: cooperative, well kempt and well developed HEENT normocephalic and hearing grossly normal bilaterally Eyes EOMs intact bilaterally Neck full ROM General: normal visual inspection Resp normal respiratory effort Effort and Inspection: able to speak in complete sentences Skin Wounds: wounds noted Neuro CN's II-XII intact bilaterally and moves all extremities Psych mental status grossly normal, thought process normal, cooperative and affect normal Debridement Note Debridement Note Wound debrided: Left Forearm Type of Debridement: Excisional debridement Anesthesia Used: 5% Lidocaine Gel Depth: Down to and including healthy tissue and in the subcutaneous layer Percentage of wound debrided: 100 Instrument Used: 5mm curette Tissue Removed: Slough and Devitalized Tissue Severity: Fat Layer Exposed Amount of bleeding with debridement: Mild Bleeding Controlled with: Pressure Patient tolerated procedure: Patient tolerated procedure well Post-Debridement Measurements and Additional Note: Post-Debridement Measurements/Treatment WC - Nurse 1 - General Ulcer Assessment Start: 04/08/23 10:10 Freq: Status: Active Protocol: JESÚS Activity Type Activity Date Activity User E-sign Co-sign Detail Recorded Client Recorded Date Recorded By Document 04/08/23 10:11 [facility] Desktop 04/08/23 10:36 BMF Document 04/15/23 11:16 RB Desktop 04/15/23 11:19 RB Document 04/22/23 10:55 [facility] Desktop 04/22/23 11:05 BMF 04/08/23 04/15/23 04/22/23 10:11 11:16 10:55 WC - Today's Visit Information Type of service Initial Visit Follow-up Visit Follow-up Visit (Physician/COMMUNICATIONS STRATEGIST (Physician/COMMUNICATIONS STRATEGIST ) ) Arrival Mode Ambulatory, Walker Wheelchair Walker Transfer Assistance None None Accompanied by daughter Patient Identification Verified (Name & Yes Yes Yes ) Patient Requires Transmission-Based No No No Precautions Height and Weight Height 5 ft 3 in Weight 122 lb Weight in Pounds 122.0 lbs Weight Measurement Method Estimated by Patient Body Mass Index (BMI) 21.6 21.6 21.6 BMI Classification Normal Normal Normal BSA - Adonis 1.57 Vital Signs Temperature (97.8 F-99.1 F) 97.1 F L 96.2 F L 98.1 F Temperature Source Temporal Temporal Temporal Pulse Rate (60-100) 63 60 64 Pulse Location Monitor Monitor Monitor Respiratory Rate (12-18) 16 18 16 Respiratory rate source Observation Observation Observation Oxygen Delivery Method Room Air Room Air Blood Pressure (90/60-120/80) 132/34 H 167/43 H 136/44 H Blood Pressure Mean (mm Hg) 66 84 74 Source Monitor Monitor Monitor Position Sitting Semi-Fowlers Sitting Blood Pressure Location Right Arm Left Arm Left Arm History Since Last Visit- (Skip if this is Patient's initial visit) Have you changed medications since your No No last visit? Any new allergies or adverse reactions No No Had a fall/change in ADL's that may No No increase risk of falls Signs or symptoms of abuse and/or No No neglect since last visit Have you been in the hospital since your No No last visit? Has dressing in place as prescribed Yes No Has compression in place as prescribed No N/A Has offloadiing in place as prescribed No N/A Experienced any changes in pain level or No No management Left Footwear Regular Shoe Regular Shoe Right Footwear Regular Shoe Regular Shoe Pain Scale: 0-10 Numeric Is Patient Pain Free? 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 Required No Able to Read No: dementia w/ aphasia Able to Write No: can read/ trouble w/ writing Right Hearing Abillity Normal Left Hearing Abillity Normal Visual Assistive Devices Glasses Teaching Assessment Preferences Verbal,Written, Audio/Visual, Demonstration Barriers to Learning Knowledge Deficit Readiness To Learn Good Willingness to Engage in Self Management Med Activies Readiness to Engage in Self Management Med Activities Anxiety Level Calm Cooperation Cooperative Perception Coherent Interest in Health Problem Asks Questions Education Importance Acknowledges Need Does Patient Smoke tobacco or other No substances Smoking Status Never smoker Is Patient Diabetic Yes Functional Assessment Recent Decline in Ability to Perform Denies Any Declines 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 Cultural/Baptist Needs that may affect No Treatment Plan Teaching: Wound Center *Welcome to the Wound Center -Person Taught Patient,Family -Teaching Method Discussion -Response to teaching Verbalize understanding Welcome to the Wound Care Center English BLACKMAN - Nurse 1 - General Ulcer Measurement Start: 04/08/23 10:10 Freq: Status: Active Protocol: Activity Type Activity Date Activity User E-sign Co-sign Detail Recorded Client Recorded Date Recorded By Document 04/08/23 10:11 [facility] Desktop 04/08/23 10:36 BMF Document 04/15/23 11:16 RB Desktop 04/15/23 11:19 RB Document 04/22/23 10:55 [facility] Desktop 04/22/23 11:05 [facility] Edit Result 04/22/23 10:55 [facility] (1) Desktop 04/22/23 11:06 [facility] (1) #2- L FACIAL CLUSTER - Current Size (cm) - Length 2.5 => 1.5 - Current Size (cm) - Width 0.5 => 0.6 - Total Square Cm 1.25 => 0.90 04/08/23 04/15/23 04/22/23 10:11 11:16 10:55 Wound Center Nurse 1 #2- L FACIAL CLUSTER -Combined with other wound No No No -Current Size (cm) - Length 6.7 1.6 1.5 -Current Size (cm) - Width 2.2 1 0.6 -Current Size (cm) - Depth 0.1 0.1 0.1 -Total Square Cm 14.74 1.6 0.90 -Date of Last Picture (Recall this 04/08/23 04/22/23 field) -Photo Taken Yes Yes Yes -Epithelialization Medium 34-66% -Tunneling No No No -Undermining/Tunneling No No No -Circular Undermining No No No -Exudate Amt Medium Medium Small -Exudate Type Serosanguineous Serosanguineous Serosanguineous -Wound Margin Distinct, Distinct, Flat & Intact Outline Outline Attached Attached -Granulation Amt Medium (34-66%) Medium (34-66%) Large (67-100%) -Granulation Quality Red [place] Red -Slough/Fibrin Yes Yes Yes -Necrosis Amt Medium (34-66%) Medium (34-66%) Small (1-33%) -Necrotic Tissue Type Eschar Adherent Slough Eschar -Structure Exposed N/A -Texture (Dede-wound Skin Appearance) Assessed, Assessed, Assessed, Scarring Scarring Scarring -Moisture (Dede-wound Skin Appearance) Assessed Assessed Assessed,Dry/ Scaly -Color (Dede-wound Skin Appearance) Assessed, Assessed Assessed Ecchymosis -Temperature (Dede-wound Skin No Abnormality No Abnormality No Abnormality Appearance) (Pt Warm) (Pt Warm) (Pt Warm) -Tenderness on Palpation (Dede-wound No No No Skin Appearance) -Ulcer Cleansing Rinsed/ Wound Cleanser Soap and Water Irrigated with Saline -Foul Odor after Cleansing No No No -Anesthetic Used 5% Lidocaine 5% Lidocaine 5% Lidocaine Gel Gel Gel #1- LFA -Combined with other wound No No No -Current Size (cm) - Length 3.5 3.2 2.5 -Current Size (cm) - Width 1.6 1.5 0.5 -Current Size (cm) - Depth 0.1 0.1 0.1 -Total Square Cm 5.60 4.80 1.25 -Date of Last Picture (Recall this 04/08/23 04/22/23 field) -Photo Taken Yes Yes Yes -Epithelialization Small 1-33% -Tunneling No No No -Undermining/Tunneling No No No -Circular Undermining No No No -Exudate Amt Medium Medium Medium -Exudate Type Serosanguineous Serosanguineous Serosanguineous -Wound Margin Distinct, Distinct, Flat & Intact Outline Outline Attached Attached -Granulation Amt Large (67-100%) Medium (34-66%) Large (67-100%) -Granulation Quality Red [place] Red -Slough/Fibrin No Yes No -Necrosis Amt None Present (0 Large (67-100%) None Present (0 %) %) -Necrotic Tissue Type Adherent Slough -Structure Exposed N/A -Texture (Dede-wound Skin Appearance) Assessed, Scarring Assessed, Scarring Scarring -Moisture (Dede-wound Skin Appearance) Assessed Assessed Assessed -Color (Dede-wound Skin Appearance) Assessed Assessed -Temperature (Dede-wound Skin No Abnormality No Abnormality No Abnormality Appearance) (Pt Warm) (Pt Warm) (Pt Warm) -Tenderness on Palpation (Dede-wound No No No Skin Appearance) -Ulcer Cleansing Rinsed/ Wound Cleanser Soap and Water Irrigated with Saline -Foul Odor after Cleansing No No No -Anesthetic Used 4% Lidocaine 5% Lidocaine 5% Lidocaine Solution Gel Gel WC - Nurse 2 - General Ulcer CM Notes Start: 04/08/23 10:10 Freq: Status: Active Protocol: Activity Type Activity Date Activity User E-sign Co-sign Detail Recorded Client Recorded Date Recorded By Document 04/08/23 11:00 [id number] 04/08/23 11:27 Document 04/15/23 11:34 Desktop 04/15/23 11:39 Document 04/22/23 11:13 Desktop 04/22/23 11:21 04/08/23 04/15/23 04/22/23 11:00 11:34 11:13 Wound Center Nurse 2 #2- L FACIAL CLUSTER -Time 11:01 11:35 11:13 -Correct Patient Yes Yes Yes -Correct Side, Site, Position Yes Yes Yes -Correct Procedure Yes Yes Yes -Procedure Performed Yes Yes Yes -Type of Procedure Debridement Debridement Debridement -Clinical Debridement Epidermis / Subcutaneous Subcutaneous Dermis -Tissue Removed Epidermis, Subcutaneous Subcutaneous Dermis -Post Debridement (cm) - Length 6.0 2.0 1.5 -Post Debridement (cm) - Width 2.5 1.0 0.8 -Post Debridement (cm) - Depth 0.1 0.1 0.1 -Total Square (Post) (cm) 15.00 2.00 1.20 -Area of Debridement (cm) - Length 6.0 2.0 1.5 -Area of Debridement (cm) - Width 2.5 1 0.8 -Total Square (Area) (cm) 15.00 2.0 1.20 -Tunneling No No No -Undermining/Tunneling No No No -Circular Undermining No No No -Wound/Ulcer Outcome Not Healed Not Healed Not Healed -Ulcer Cleansing Rinsed/ Rinsed/ Rinsed/ Irrigated with Irrigated with Irrigated with Saline Saline Saline -Foul Odor after Cleansing No No No -Bioengineered Tissue No No No -Bleeding Controlled with Pressure Pressure Pressure -Treatment Response Procedure Procedure Tolerated Well Tolerated Well -Debridement - Open, 1st 20sq cm Yes -Debridement - Subq, 1st 20sq cm No No #1- LFA -Time 11:01 11:35 11:14 -Correct Patient Yes Yes Yes -Correct Side, Site, Position Yes Yes Yes -Correct Procedure Yes Yes Yes -Procedure Performed Yes Yes Yes -Type of Procedure Debridement Debridement Debridement -Clinical Debridement Subcutaneous Subcutaneous Subcutaneous -Tissue Removed Subcutaneous Subcutaneous Subcutaneous -Post Debridement (cm) - Length 3.5 3.2 2.5 -Post Debridement (cm) - Width 2.0 1.3 0.8 -Post Debridement (cm) - Depth 0.1 0.1 0.1 -Total Square (Post) (cm) 7.00 4.16 2.00 -Area of Debridement (cm) - Length 3.5 3.2 2.5 -Area of Debridement (cm) - Width 2.0 1.3 0.8 -Total Square (Area) (cm) 7.00 4.16 2.00 -Tunneling No No No -Undermining/Tunneling No No No -Circular Undermining No No No -Wound/Ulcer Outcome Not Healed Not Healed Not Healed -Ulcer Cleansing Rinsed/ Rinsed/ Rinsed/ Irrigated with Irrigated with Irrigated with Saline Saline Saline -Foul Odor after Cleansing No No No -Bioengineered Tissue No No No -Bleeding Controlled with Pressure Pressure Pressure -Treatment Response Procedure Procedure Procedure Tolerated Well Tolerated Well Tolerated Well -Debridement - Subq, 1st 20sq cm Yes Yes Yes Pain Scale: 0-10 Numeric Is Patient Pain Free? Yes Yes Yes WC - Nurse 3 - General Ulcer D/C NN Start: 04/08/23 10:10 Freq: Status: Active Protocol: Activity Type Activity Date Activity User E-sign Co-sign Detail Recorded Client Recorded Date Recorded By Document 04/08/23 11:29 DL Desktop 04/08/23 11:32 DL Document 04/15/23 11:52 RB Desktop 04/15/23 11:54 RB 04/08/23 04/15/23 11:29 11:52 Wound Care Center Nurse 3 #2- L FACIAL CLUSTER -Ulcer Cleansing Rinsed/ Rinsed/ Irrigated with Irrigated with Saline Saline -Foul Odor after Cleansing No -Primary Dressing Applied Aquacel Extra, Aquacel Extra, NonAdherent NonAdherent Contact Layer Contact Layer -Primary Dressing Covered/Secured with Dry Gauze, Dry Gauze, Secured with Secured with Tape Tape -Aquacel Extra 1 1 #1- LFA -Ulcer Cleansing Rinsed/ Rinsed/ Irrigated with Irrigated with Saline Saline -Foul Odor after Cleansing No -Primary Dressing Applied NonAdherent NonAdherent Contact Layer Contact Layer -Other Dressing aquacel ex aquacel extra -Primary Dressing Covered/Secured with Dry Gauze, Dry Gauze, Secured with Secured with Tape Tape -Other Covering silicone tape Treatment Response Procedure Procedure Tolerated Well Tolerated Well Pain Scale: 0-10 Numeric Is Patient Pain Free? Yes Yes WC - Visit Discharge Discharge Condition Stable Stable Ambulatory Status Ambulatory, Wheelchair Walker Transportation Private Auto Medication Reconcilliation completed & No provided to patient/care provider Clinical Summary of Care Provided Yes Notes: BP rechecked: 158/68. Dr. Hill aware. Facility Type Nursing Home Care Facility Orders Sent Yes Additional Wound Wound debrided: Left Facial Wound Type of Debridement: Excisional debridement Anesthesia Used: 5% Lidocaine Gel Depth: Down to and including healthy tissue and in the subcutaneous layer Percentage of wound debrided: 100 Instrument Used: 5mm curette Tissue Removed: Devitalized Tissue Severity: Fat Layer Exposed Amount of bleeding with debridement: Mild Bleeding Controlled with: Pressure Patient tolerated procedure: Patient tolerated procedure well Assessment/Plan Assessment/Plan (1) Open wound of left forearm: CODE(S): S51.802A - Unspecified open wound of left forearm, initial encounter PLAN: Traumatic. Laceration (2) Non-healing surgical wound: CODE(S): T81.89XA - Other complications of procedures, not elsewhere classified, initial encounter (3) Open facial wound: CODE(S): S01.80XA - Unspecified open wound of other part of head, initial encounter PLAN: Plan Debridement done as documented above, procedure was well-tolerated. Overall, it is improving but increased crusting noted on the face. Continue Aquacel extra. Cover with Adaptic, gauze/foam dressing. Change daily to twice daily depending on drainage. Adaptic to areas of erythema. Daughter was also advised to moisturize skin adequately. Continue Timur daily to twice daily and other chronic wound care management/recommendations. Their questions were answered and they were advised to call with any further questions or concerns. Follow-up in a week or sooner if needed. This note was generated with [email or web address] dictation software. It may contain incorrect words, spelling, and punctuation that were not noted in checking the note before signing.
[2023-04-29 11:00] VITALS: BP 145/49; PULSE 63; RESP 16; TEMP 36.2; BMI 21.6
--- NOTE | 2023-04-29 11:40 | PN.PCM_ITS ---
History of Present Illness Date of Service: 04/29/23 Chief Complaint: Left Facial and Upper Extremity Wound History of Wound: Ms Penaloza is an 87 yo who was referred here due to non healing facial and left forearm wound. Had previously followed up with a Workplace Rehabilitation Officer. History of recurrent falls, fell with injury to her left face with subsequent graft closure in October at [place]. Recent visit to her surgeon due to non healing/significant slough for which she had debridement in office. Left upper extremity wound was said to be 2 weeks ago following another fall. Has had some dressing changes in the facility however decided to come to the wound center due to nonclosure/delay in healing. History of diabetes mellitus which is said to be well-controlled. Also history of dementia and lately, has had poor appetite. No chills, fever or otherwise feeling of unwell. Progress of Wound: Left forearm improving. Large bruise noted on forehead/face. No falls reported. Daughter states that she may have run into an open cupboard. No new concerns reported otherwise. Objective Data Objective Data Vital Signs: Vital Signs Temp Pulse Resp BP O2 Del Method 97.1 F L 63 16 145/49 H Room Air 04/29/23 11:00 04/29/23 11:00 04/29/23 11:00 04/29/23 11:00 04/29/23 11:00 Oxygen Delivery Method Room Air Weight: 122 lb Body Mass Index (BMI) 21.6 Charges/Coding Procedures Integumentary 111xxx-113xx: 11475 Lazara subq tissue 20 sq cm/< Debridement Note Debridement Note Wound debrided: Left Forearm Type of Debridement: Excisional debridement Anesthesia Used: 5% Lidocaine Gel Depth: Down to and including healthy tissue and in the subcutaneous layer Percentage of wound debrided: 100 Instrument Used: 3mm curette Tissue Removed: Slough and Devitalized Tissue Severity: Fat Layer Exposed Amount of bleeding with debridement: Mild Bleeding Controlled with: Pressure Patient tolerated procedure: Patient tolerated procedure well Post-Debridement Measurements and Additional Note: Post-Debridement Measurements/Treatment - Nurse 1 - General Ulcer Assessment Start: 04/08/23 10:10 Freq: Status: Active Protocol: JESÚS Activity Type Activity Date Activity User E-sign Co-sign Detail Recorded Client Recorded Date Recorded By Document 04/08/23 10:11 [facility] Desktop 04/08/23 10:36 BMF Document 04/15/23 11:16 RB Desktop 04/15/23 11:19 RB Document 04/22/23 10:55 BMF Desktop 04/22/23 11:05 BMF Document 04/29/23 11:00 BMF Desktop 04/29/23 11:04 BMF 04/08/23 04/15/23 04/22/23 10:11 11:16 10:55 WC - Today's Visit Information Type of service Initial Visit Follow-up Visit Follow-up Visit (Physician/PADDING GLUER (Physician/PADDING GLUER ) ) Arrival Mode Ambulatory, Walker Wheelchair Walker Transfer Assistance None None Transfer Assist (Other) Accompanied by daughter Patient Identification Verified (Name & Yes Yes Yes ) Patient Requires Transmission-Based No No No Precautions Height and Weight Height 5 ft 3 in Weight 122 lb Weight in Pounds 122.0 lbs Weight Measurement Method Estimated by Patient Body Mass Index (BMI) 21.6 21.6 21.6 BMI Classification Normal Normal Normal BSA - Adonis 1.57 Vital Signs Temperature (97.8 F-99.1 F) 97.1 F L 96.2 F L 98.1 F Temperature Source Temporal Temporal Temporal Pulse Rate (60-100) 63 60 64 Pulse Location Monitor Monitor Monitor Respiratory Rate (12-18) 16 18 16 Respiratory rate source Observation Observation Observation Oxygen Delivery Method Room Air Room Air Blood Pressure (90/60-120/80) 132/34 H 167/43 H 136/44 H Blood Pressure Mean (mm Hg) 66 84 74 Source Monitor Monitor Monitor Position Sitting Semi-Fowlers Sitting Blood Pressure Location Right Arm Left Arm Left Arm History Since Last Visit- (Skip if this is Patient's initial visit) Have you changed medications since your No No last visit? Any new allergies or adverse reactions No No Had a fall/change in ADL's that may No No increase risk of falls Signs or symptoms of abuse and/or No No neglect since last visit Have you been in the hospital since your No No last visit? Has dressing in place as prescribed Yes No Has compression in place as prescribed No N/A Has offloadiing in place as prescribed No N/A Experienced any changes in pain level or No No management Left Footwear Regular Shoe Regular Shoe Right Footwear Regular Shoe Regular Shoe Pain Scale: 0-10 Numeric Is Patient Pain Free? Yes Yes Yes Communication Assessment Preferred language Khmer Poultry Hatchery Supervisor Required No Able to Read No: dementia w/ aphasia Able to Write No: can read/ trouble w/ writing Right Hearing Abillity Normal Left Hearing Abillity Normal Visual Assistive Devices Glasses Teaching Assessment Preferences Verbal,Written, Audio/Visual, Demonstration Barriers to Learning Knowledge Deficit Readiness To Learn Good Willingness to Engage in Self Management Med Activies Readiness to Engage in Self Management Med Activities Anxiety Level Calm Cooperation Cooperative Perception Coherent Interest in Health Problem Asks Questions Education Importance Acknowledges Need Does Patient Smoke tobacco or other No substances Smoking Status Never smoker Is Patient Diabetic Yes Functional Assessment Recent Decline in Ability to Perform Denies Any Declines Culture/Orthodoxy/Director Of Regulatory Affairs Cultural/Orthodoxy Needs that may affect No Treatment Plan Teaching: Wound Center *Welcome to the Wound Center -Person Taught Patient,Family -Teaching Method Discussion -Response to teaching Verbalize understanding Welcome to the Wound Care Center Khmer 04/29/23 11:00 WC - Today's Visit Information Type of service Follow-up Visit (Physician/PADDING GLUER ) Arrival Mode Ambulatory, Walker Transfer Assistance None Transfer Assist (Other) DAUGHTER Accompanied by Patient Identification Verified (Name & Yes ) Patient Requires Transmission-Based No Precautions Height and Weight Height Weight Weight in Pounds Weight Measurement Method Body Mass Index (BMI) 21.6 BMI Classification Normal BSA - Adonis Vital Signs Temperature (97.8 F-99.1 F) 97.1 F L Temperature Source Temporal Pulse Rate (60-100) 63 Pulse Location Monitor Respiratory Rate (12-18) 16 Respiratory rate source Observation Oxygen Delivery Method Room Air Blood Pressure (90/60-120/80) 145/49 H Blood Pressure Mean (mm Hg) 81 Source Monitor Position Sitting Blood Pressure Location Right Arm History Since Last Visit- (Skip if this is Patient's initial visit) Have you changed medications since your No last visit? Any new allergies or adverse reactions No Had a fall/change in ADL's that may No increase risk of falls Signs or symptoms of abuse and/or No neglect since last visit Have you been in the hospital since your No last visit? Has dressing in place as prescribed Yes Has compression in place as prescribed N/A Has offloadiing in place as prescribed N/A Experienced any changes in pain level or No management Left Footwear Regular Shoe Right Footwear Regular Shoe Pain Scale: 0-10 Numeric Is Patient Pain Free? Yes Communication Assessment Preferred speech language pathology assistant Required Able to Read Able to Write Right Hearing Abillity Left Hearing Abillity Visual Assistive Devices Teaching Assessment Preferences Barriers to Learning Readiness To Learn Willingness to Engage in Self Management Activies Readiness to Engage in Self Management Activities Anxiety Level Cooperation Perception Interest in Health Problem Education Importance Does Patient Smoke tobacco or other substances Smoking Status Is Patient Diabetic Functional Assessment Recent Decline in Ability to Perform Culture/Orthodoxy/Director Of Regulatory Affairs Cultural/Orthodoxy Needs that may affect Treatment Plan Teaching: Wound Center *Welcome to the Wound Center -Person Taught -Teaching Method -Response to teaching Welcome to the Wound Care Center WC - Nurse 1 - General Ulcer Measurement Start: 04/08/23 10:10 Freq: Status: Active Protocol: Activity Type Activity Date Activity User E-sign Co-sign Detail Recorded Client Recorded Date Recorded By Document 04/08/23 10:11 BMF Desktop 04/08/23 10:36 BMF Document 04/15/23 11:16 RB Desktop 04/15/23 11:19 RB Document 04/22/23 10:55 BMF Desktop 04/22/23 11:05 BMF Edit Result 04/22/23 10:55 BMF (1) Desktop 04/22/23 11:06 BMF Document 04/29/23 11:00 BMF Desktop 04/29/23 11:04 BMF (1) #2- L FACIAL CLUSTER - Current Size (cm) - Length 2.5 => 1.5 - Current Size (cm) - Width 0.5 => 0.6 - Total Square Cm 1.25 => 0.90 04/08/23 04/15/23 04/22/23 10:11 11:16 10:55 Wound Center Nurse 1 #2- L FACIAL CLUSTER -Combined with other wound No No No -Current Size (cm) - Length 6.7 1.6 1.5 -Current Size (cm) - Width 2.2 1 0.6 -Current Size (cm) - Depth 0.1 0.1 0.1 -Total Square Cm 14.74 1.6 0.90 -Date of Last Picture (Recall this 04/08/23 04/22/23 field) -Photo Taken Yes Yes Yes -Epithelialization Medium 34-66% -Tunneling No No No -Undermining/Tunneling No No No -Circular Undermining No No No -Exudate Amt Medium Medium Small -Exudate Type Serosanguineous Serosanguineous Serosanguineous -Wound Margin Distinct, Distinct, Flat & Intact Outline Outline Attached Attached -Granulation Amt Medium (34-66%) Medium (34-66%) Large (67-100%) -Granulation Quality Red [place] Red -Slough/Fibrin Yes Yes Yes -Necrosis Amt Medium (34-66%) Medium (34-66%) Small (1-33%) -Necrotic Tissue Type Eschar Adherent Slough Eschar -Structure Exposed N/A -Texture (Dede-wound Skin Appearance) Assessed, Assessed, Assessed, Scarring Scarring Scarring -Moisture (Dede-wound Skin Appearance) Assessed Assessed Assessed,Dry/ Scaly -Color (Dede-wound Skin Appearance) Assessed, Assessed Assessed Ecchymosis -Temperature (Dede-wound Skin No Abnormality No Abnormality No Abnormality Appearance) (Pt Warm) (Pt Warm) (Pt Warm) -Tenderness on Palpation (Dede-wound No No No Skin Appearance) -Ulcer Cleansing Rinsed/ Wound Cleanser Soap and Water Irrigated with Saline -Foul Odor after Cleansing No No No -Anesthetic Used 5% Lidocaine 5% Lidocaine 5% Lidocaine Gel Gel Gel #1- LFA -Combined with other wound No No No -Current Size (cm) - Length 3.5 3.2 2.5 -Current Size (cm) - Width 1.6 1.5 0.5 -Current Size (cm) - Depth 0.1 0.1 0.1 -Total Square Cm 5.60 4.80 1.25 -Date of Last Picture (Recall this 04/08/23 04/22/23 field) -Photo Taken Yes Yes Yes -Epithelialization Small 1-33% -Tunneling No No No -Undermining/Tunneling No No No -Circular Undermining No No No -Exudate Amt Medium Medium Medium -Exudate Type Serosanguineous Serosanguineous Serosanguineous -Wound Margin Distinct, Distinct, Flat & Intact Outline Outline Attached Attached -Granulation Amt Large (67-100%) Medium (34-66%) Large (67-100%) -Granulation Quality Red [place] Red -Slough/Fibrin No Yes No -Necrosis Amt None Present (0 Large (67-100%) None Present (0 %) %) -Necrotic Tissue Type Adherent Slough -Structure Exposed N/A -Texture (Dede-wound Skin Appearance) Assessed, Scarring Assessed, Scarring Scarring -Moisture (Dede-wound Skin Appearance) Assessed Assessed Assessed -Color (Dede-wound Skin Appearance) Assessed Assessed -Temperature (Dede-wound Skin No Abnormality No Abnormality No Abnormality Appearance) (Pt Warm) (Pt Warm) (Pt Warm) -Tenderness on Palpation (Dede-wound No No No Skin Appearance) -Ulcer Cleansing Rinsed/ Wound Cleanser Soap and Water Irrigated with Saline -Foul Odor after Cleansing No No No -Anesthetic Used 4% Lidocaine 5% Lidocaine 5% Lidocaine Solution Gel Gel 04/29/23 11:00 Wound Center Nurse 1 #2- L FACIAL CLUSTER -Combined with other wound No -Current Size (cm) - Length 0.8 -Current Size (cm) - Width 0.7 -Current Size (cm) - Depth 0.1 -Total Square Cm 0.56 -Date of Last Picture (Recall this field) -Photo Taken -Epithelialization Small 1-33% -Tunneling No -Undermining/Tunneling No -Circular Undermining No -Exudate Amt Small -Exudate Type Serosanguineous -Wound Margin Distinct, Outline Attached -Granulation Amt Large (67-100%) -Granulation Quality Red -Slough/Fibrin Yes -Necrosis Amt Small (1-33%) -Necrotic Tissue Type Adherent Slough -Structure Exposed -Texture (Dede-wound Skin Appearance) Assessed, Scarring -Moisture (Dede-wound Skin Appearance) Assessed -Color (Dede-wound Skin Appearance) Assessed -Temperature (Dede-wound Skin No Abnormality Appearance) (Pt Warm) -Tenderness on Palpation (Dede-wound No Skin Appearance) -Ulcer Cleansing Rinsed/ Irrigated with Saline -Foul Odor after Cleansing No -Anesthetic Used 5% Lidocaine Gel #1- LFA -Combined with other wound No -Current Size (cm) - Length 0.9 -Current Size (cm) - Width 0.5 -Current Size (cm) - Depth 0.1 -Total Square Cm 0.45 -Date of Last Picture (Recall this field) -Photo Taken -Epithelialization Small 1-33% -Tunneling No -Undermining/Tunneling No -Circular Undermining No -Exudate Amt Small -Exudate Type Serosanguineous -Wound Margin Distinct, Outline Attached -Granulation Amt Large (67-100%) -Granulation Quality Red -Slough/Fibrin No -Necrosis Amt None Present (0 %) -Necrotic Tissue Type -Structure Exposed -Texture (Dede-wound Skin Appearance) Assessed, Scarring -Moisture (Dede-wound Skin Appearance) Assessed -Color (Dede-wound Skin Appearance) Assessed -Temperature (Dede-wound Skin No Abnormality Appearance) (Pt Warm) -Tenderness on Palpation (Dede-wound No Skin Appearance) -Ulcer Cleansing Rinsed/ Irrigated with Saline -Foul Odor after Cleansing No -Anesthetic Used 5% Lidocaine Gel WC - Nurse 2 - General Ulcer CM Notes Start: 04/08/23 10:10 Freq: Status: Active Protocol: Activity Type Activity Date Activity User E-sign Co-sign Detail Recorded Client Recorded Date Recorded By Document 04/08/23 11:00 GM [id number] 04/08/23 11:27 GM Document 04/15/23 11:34 GM Desktop 04/15/23 11:39 GM Document 04/22/23 11:13 GM Desktop 04/22/23 11:21 GM Document 04/29/23 11:14 GM Desktop 04/29/23 11:28 GM 04/08/23 04/15/23 04/22/23 11:00 11:34 11:13 Wound Center Nurse 2 #2- L FACIAL CLUSTER -Time 11:01 11:35 11:13 -Correct Patient Yes Yes Yes -Correct Side, Site, Position Yes Yes Yes -Correct Procedure Yes Yes Yes -Procedure Performed Yes Yes Yes -Type of Procedure Debridement Debridement Debridement -Clinical Debridement Epidermis / Subcutaneous Subcutaneous Dermis -Tissue Removed Epidermis, Subcutaneous Subcutaneous Dermis -Post Debridement (cm) - Length 6.0 2.0 1.5 -Post Debridement (cm) - Width 2.5 1.0 0.8 -Post Debridement (cm) - Depth 0.1 0.1 0.1 -Total Square (Post) (cm) 15.00 2.00 1.20 -Area of Debridement (cm) - Length 6.0 2.0 1.5 -Area of Debridement (cm) - Width 2.5 1 0.8 -Total Square (Area) (cm) 15.00 2.0 1.20 -Tunneling No No No -Undermining/Tunneling No No No -Circular Undermining No No No -Wound/Ulcer Outcome Not Healed Not Healed Not Healed -Ulcer Cleansing Rinsed/ Rinsed/ Rinsed/ Irrigated with Irrigated with Irrigated with Saline Saline Saline -Foul Odor after Cleansing No No No -Bioengineered Tissue No No No -Bleeding Controlled with Pressure Pressure Pressure -Treatment Response Procedure Procedure Tolerated Well Tolerated Well -Debridement - Open, 1st 20sq cm Yes -Debridement - Subq, 1st 20sq cm No No #1- LFA -Time 11:01 11:35 11:14 -Correct Patient Yes Yes Yes -Correct Side, Site, Position Yes Yes Yes -Correct Procedure Yes Yes Yes -Procedure Performed Yes Yes Yes -Type of Procedure Debridement Debridement Debridement -Clinical Debridement Subcutaneous Subcutaneous Subcutaneous -Tissue Removed Subcutaneous Subcutaneous Subcutaneous -Post Debridement (cm) - Length 3.5 3.2 2.5 -Post Debridement (cm) - Width 2.0 1.3 0.8 -Post Debridement (cm) - Depth 0.1 0.1 0.1 -Total Square (Post) (cm) 7.00 4.16 2.00 -Area of Debridement (cm) - Length 3.5 3.2 2.5 -Area of Debridement (cm) - Width 2.0 1.3 0.8 -Total Square (Area) (cm) 7.00 4.16 2.00 -Tunneling No No No -Undermining/Tunneling No No No -Circular Undermining No No No -Wound/Ulcer Outcome Not Healed Not Healed Not Healed -Ulcer Cleansing Rinsed/ Rinsed/ Rinsed/ Irrigated with Irrigated with Irrigated with Saline Saline Saline -Foul Odor after Cleansing No No No -Bioengineered Tissue No No No -Bleeding Controlled with Pressure Pressure Pressure -Treatment Response Procedure Procedure Procedure Tolerated Well Tolerated Well Tolerated Well -Debridement - Subq, 1st 20sq cm Yes Yes Yes Pain Scale: 0-10 Numeric Is Patient Pain Free? Yes Yes Yes 04/29/23 11:14 Wound Center Nurse 2 #2- L FACIAL CLUSTER -Time 11:20 -Correct Patient Yes -Correct Side, Site, Position Yes -Correct Procedure Yes -Procedure Performed Yes -Type of Procedure Debridement -Clinical Debridement Subcutaneous -Tissue Removed Subcutaneous -Post Debridement (cm) - Length 2 -Post Debridement (cm) - Width 1.4 -Post Debridement (cm) - Depth 0.3 -Total Square (Post) (cm) 2.8 -Area of Debridement (cm) - Length 2 -Area of Debridement (cm) - Width 1.4 -Total Square (Area) (cm) 2.8 -Tunneling No -Undermining/Tunneling No -Circular Undermining No -Wound/Ulcer Outcome Not Healed -Ulcer Cleansing Rinsed/ Irrigated with Saline -Foul Odor after Cleansing No -Bioengineered Tissue No -Bleeding Controlled with Pressure -Treatment Response Procedure Tolerated Well -Debridement - Open, 1st 20sq cm -Debridement - Subq, 1st 20sq cm Yes #1- LFA -Time 11:20 -Correct Patient Yes -Correct Side, Site, Position Yes -Correct Procedure Yes -Procedure Performed Yes -Type of Procedure Debridement -Clinical Debridement Subcutaneous -Tissue Removed Subcutaneous -Post Debridement (cm) - Length -Post Debridement (cm) - Width -Post Debridement (cm) - Depth -Total Square (Post) (cm) -Area of Debridement (cm) - Length -Area of Debridement (cm) - Width -Total Square (Area) (cm) -Tunneling No -Undermining/Tunneling No -Circular Undermining No -Wound/Ulcer Outcome Not Healed -Ulcer Cleansing Rinsed/ Irrigated with Saline -Foul Odor after Cleansing No -Bioengineered Tissue No -Bleeding Controlled with Pressure -Treatment Response Procedure Tolerated Well -Debridement - Subq, 1st 20sq cm No Pain Scale: 0-10 Numeric Is Patient Pain Free? Yes WC - Nurse 3 - General Ulcer D/C NN Start: 04/08/23 10:10 Freq: Status: Active Protocol: Activity Type Activity Date Activity User E-sign Co-sign Detail Recorded Client Recorded Date Recorded By Document 04/08/23 11:29 DL Desktop 04/08/23 11:32 DL Document 04/15/23 11:52 RB Desktop 04/15/23 11:54 RB Document 04/22/23 11:22 GM Desktop 04/22/23 11:28 GM Document 04/29/23 11:28 GM Desktop 04/29/23 11:29 GM 04/08/23 04/15/23 04/22/23 11:29 11:52 11:22 Wound Care Center Nurse 3 #2- L FACIAL CLUSTER -Ulcer Cleansing Rinsed/ Rinsed/ Rinsed/ Irrigated with Irrigated with Irrigated with Saline Saline Saline -Foul Odor after Cleansing No -Primary Dressing Applied Aquacel Extra, Aquacel Extra, Aquacel Extra, NonAdherent NonAdherent NonAdherent Contact Layer Contact Layer Contact Layer -Other Dressing silicone tape -Primary Dressing Covered/Secured with Dry Gauze, Dry Gauze, Dry Gauze, Secured with Secured with Secured with Tape Tape Tape -Aquacel Extra 1 1 1 #1- LFA -Ulcer Cleansing Rinsed/ Rinsed/ Rinsed/ Irrigated with Irrigated with Irrigated with Saline Saline Saline -Foul Odor after Cleansing No -Primary Dressing Applied NonAdherent NonAdherent NonAdherent Contact Layer Contact Layer Contact Layer -Other Dressing aquacel ex aquacel extra aquacel extra -Primary Dressing Covered/Secured with Dry Gauze, Dry Gauze, Dry Gauze, Secured with Secured with Secured with Tape Tape Tape -Other Covering silicone tape Treatment Response Procedure Procedure Procedure Tolerated Well Tolerated Well Tolerated Well Pain Scale: 0-10 Numeric Is Patient Pain Free? Yes Yes Yes WC - Visit Discharge Discharge Condition Stable Stable Stable Ambulatory Status Ambulatory, Wheelchair Wheelchair Walker Transportation Private Auto Private Auto Accompanied by Medication Reconcilliation completed & No No provided to patient/care provider Clinical Summary of Care Provided Yes Yes Notes: BP rechecked: 158/68. Dr. Sergio jiménez. Facility Type Detention Care Facility Orders Sent Yes 04/29/23 11:28 Wound Care Center Nurse 3 #2- L FACIAL CLUSTER -Ulcer Cleansing Not Cleansed -Foul Odor after Cleansing No -Primary Dressing Applied Aquacel Extra, NonAdherent Contact Layer -Other Dressing -Primary Dressing Covered/Secured with Secured with Tape -Aquacel Extra 1 #1- LFA -Ulcer Cleansing Not Cleansed -Foul Odor after Cleansing No -Primary Dressing Applied -Other Dressing used part of aquacel extra and adaptic -Primary Dressing Covered/Secured with Dry Gauze & Roll Gauze, Secured with Tape -Other Covering Treatment Response Pain Scale: 0-10 Numeric Is Patient Pain Free? Yes WC - Visit Discharge Discharge Condition Stable Ambulatory Status Wheelchair Transportation Private Auto Accompanied by daughter Medication Reconcilliation completed & Yes provided to patient/care provider Clinical Summary of Care Provided Yes Notes: Facility Type Orders Sent Additional Wound Wound debrided: Left Facial Wound Type of Debridement: Excisional debridement Anesthesia Used: 5% Lidocaine Gel Depth: Down to and including healthy tissue and in the subcutaneous layer Percentage of wound debrided: 100 Instrument Used: 5mm curette Tissue Removed: Devitalized Tissue Severity: Fat Layer Exposed Amount of bleeding with debridement: Mild Bleeding Controlled with: Pressure Patient tolerated procedure: Patient tolerated procedure well Assessment/Plan Assessment/Plan (1) Open wound of left forearm: CODE(S): S51.802A - Unspecified open wound of left forearm, initial encounter PLAN: Traumatic. Laceration (2) Non-healing surgical wound: CODE(S): T81.89XA - Other complications of procedures, not elsewhere classified, initial encounter (3) Open facial wound: CODE(S): S01.80XA - Unspecified open wound of other part of head, initial encounter PLAN: Plan Debridement done as documented above, procedure was well-tolerated. Slight worsening noted to facial wound. ? Recent trauma. Left lower face also with increased crusting, daughter is not sure if Adaptic is been applied. Continue Aquacel extra to upper face and left forearm. Cover with Adaptic, gauze/foam dressing. Change daily to twice daily depending on drainage. Copious amount of Aquaphor to lower face. Cover with gauze and tape. Continue adequate moisturizing. Continue Timur daily to twice daily and other chronic wound care management/recommendations. Their questions were answered and they were advised to call with any further questions or concerns. Follow-up in a week or sooner if needed. This note was generated with [employer] dictation software. It may contain incorrect words, spelling, and punctuation that were not noted in checking the note before signing.
--- NOTE | 2023-05-07 12:42 | WC ---
2.15.24 LT FACIAL CLUSTER
== END 2023-04-29 23:59 | disposition home or self-care (01) ==
LOC: WC 11:00
PROVIDERS: PCP Family Medicine; Referring Provider Family Medicine; Visit Provider Internal Medicine
DX: S51.802A Unspecified open wound of left forearm, initial encounter (principal); F03.90 Unspecified dementia, unspecified severity, without behavioral disturbance, psychotic disturbance, mood disturbance, and anxiety; E11.9 Type 2 diabetes mellitus without complications; T81.89XA Other complications of procedures, not elsewhere classified, initial encounter
CPT/HCPCS: 11042; 97597; 99213; G0463

== ENCOUNTER → 2023-05-13 | Outpatient (REF) | payer MEDICARE, OTHER, SELFPAY ==
[2023-05-13 08:36] LABS: Anion Gap 8 (5-15); BUN 50 mg/dL (7-18); Calcium,Total 9.3 mg/dL (8.5-10.1); Chloride 108 mmol/L (98-107); Creatinine, Serum 1.43 mg/dL (0.55-1.02); EST Glomerular Filtration Rate 37 mL/min (>60); Est Glom Filt Rate - Afr Amer 45 mL/min (>60); Glucose 134 mg/dL (74-106); Potassium 3.8 mmol/L (3.5-5.1); Sodium Level 140 mmol/L (136-145)
== END ==
LOC: OLS.BROOKB 05:00
PROVIDERS: PCP Family Medicine; Visit Provider Family Medicine
DX: E11.22 Type 2 diabetes mellitus with diabetic chronic kidney disease (principal); E78.5 Hyperlipidemia, unspecified; E03.9 Hypothyroidism, unspecified; I12.9 Hypertensive chronic kidney disease with stage 1 through stage 4 chronic kidney disease, or unspecified chronic kidney disease; N18.4 Chronic kidney disease, stage 4 (severe); N39.0 Urinary tract infection, site not specified; D61.818 Other pancytopenia
CPT/HCPCS: 36415; 80048; 83880

== ENCOUNTER 2023-05-20 13:00 | Outpatient (RCR) | payer MEDICARE, OTHER, SELFPAY ==
[2023-04-30 00:20] VITALS: BP 145/49; PULSE 63; RESP 16; TEMP 36.2; BMI 21.6
[2023-05-06 10:37] VITALS: BP 157/46; PULSE 59; RESP 20; TEMP 36.8; BMI 21.6
--- NOTE | 2023-05-06 11:56 | PCM.WC.PN ---
History of Present Illness Date of Service: 05/06/23 Chief Complaint: Left Facial and Upper Extremity Wound History of Wound: Ms Penaloza is an 87 yo who was referred here due to non healing facial and left forearm wound. Had previously followed up with a Research Geneticist. History of recurrent falls, fell with injury to her left face with subsequent graft closure in October at [facility]. Recent visit to her surgeon due to non healing/significant slough for which she had debridement in office. Left upper extremity wound was said to be 2 weeks ago following another fall. Has had some dressing changes in the facility however decided to come to the wound center due to nonclosure/delay in healing. History of diabetes mellitus which is said to be well-controlled. Also history of dementia and lately, has had poor appetite. No chills, fever or otherwise feeling of unwell. Progress of Wound: New right sided scalp wound. Staff at facility not sure how it happened. Patient has memory impairment and can not give details also. Other wounds stable/improving. Objective Data Objective Data Vital Signs: Vital Signs Temp Pulse Resp BP 98.3 F 59 L 20 H 157/46 H 05/06/23 10:37 05/06/23 10:37 05/06/23 10:37 05/06/23 10:37 Weight: 122 lb Body Mass Index (BMI) 21.6 Charges/Coding Procedures Integumentary [id number]: [id number] Lazara subq tissue 20 sq cm/< (Selective to facial wounds and Subq to forearm.) Physical Exam Const alert and no apparent distress General Appearance: cooperative, well kempt and well developed HEENT normocephalic and hearing grossly normal bilaterally Eyes EOMs intact bilaterally Neck full ROM General: normal visual inspection Resp normal respiratory effort Effort and Inspection: able to speak in complete sentences Skin Wounds: wounds noted Neuro CN's II-XII intact bilaterally and moves all extremities Psych mental status grossly normal, thought process normal, cooperative and affect normal Debridement Note Debridement Note Wound debrided: Left Forearm Type of Debridement: Excisional debridement Anesthesia Used: 5% Lidocaine Gel Depth: Down to and including healthy tissue and in the subcutaneous layer Percentage of wound debrided: 100 Instrument Used: 3mm curette Tissue Removed: Slough and Devitalized Tissue Severity: Fat Layer Exposed Amount of bleeding with debridement: Mild Bleeding Controlled with: Pressure Patient tolerated procedure: Patient tolerated procedure well Post-Debridement Measurements and Additional Note: Post-Debridement Measurements/Treatment YEHUDA - Nurse 1 - General Ulcer Assessment Start: 05/06/23 10:33 Freq: Status: Active Protocol: JESÚS Activity Type Activity Date Activity User E-sign Co-sign Detail Recorded Client Recorded Date Recorded By Document 05/06/23 10:37 DL [facility] 05/06/23 10:52 DL 05/06/23 10:37 - Today's Visit Information Type of service Follow-up Visit (Physician/JOB COUNSELOR ) Arrival Mode Ambulatory, Walker Transfer Assistance None Patient Identification Verified (Name & Yes ) Patient Requires Transmission-Based No Precautions Height and Weight Body Mass Index (BMI) 21.6 BMI Classification Normal Vital Signs Temperature (97.8 F-99.1 F) 98.3 F Temperature Source Temporal Pulse Rate (60-100) 59 L Pulse Location Monitor Respiratory Rate (12-18) 20 H Respiratory rate source Observation Blood Pressure (90/60-120/80) 157/46 H Blood Pressure Mean (mm Hg) 83 Source Monitor History Since Last Visit- (Skip if this is Patient's initial visit) Have you changed medications since your No last visit? Any new allergies or adverse reactions No Had a fall/change in ADL's that may No increase risk of falls Signs or symptoms of abuse and/or No neglect since last visit Have you been in the hospital since your No last visit? Has dressing in place as prescribed Yes Has compression in place as prescribed N/A Has offloadiing in place as prescribed N/A Experienced any changes in pain level or No management Pain Scale: 0-10 Numeric Is Patient Pain Free? Yes - Nurse 1 - General Ulcer Measurement Start: 05/06/23 10:33 Freq: Status: Active Protocol: Activity Type Activity Date Activity User E-sign Co-sign Detail Recorded Client Recorded Date Recorded By Document 05/06/23 10:37 DL [facility] 05/06/23 10:52 DL 05/06/23 10:37 Wound Center Nurse 1 #3 R Forehead -Current Size (cm) - Length 0.1 -Current Size (cm) - Width 0.1 -Current Size (cm) - Depth 0.1 -Total Square Cm 0.01 -Photo Taken Yes #2- L FACIAL Superior -Current Size (cm) - Length 0.9 -Current Size (cm) - Width 0.6 -Current Size (cm) - Depth 0.1 -Total Square Cm 0.54 -Exudate Amt Small -Exudate Type Serosanguineous -Wound Margin Distinct, Outline Attached -Granulation Amt Large (67-100%) -Granulation Quality [place] -Necrosis Amt None Present (0 %) -Structure Exposed N/A -Texture (Dede-wound Skin Appearance) Scarring -Moisture (Dede-wound Skin Appearance) Dry/Scaly -Color (Dede-wound Skin Appearance) No Abnormality -Temperature (Dede-wound Skin No Abnormality Appearance) (Pt Warm) -Ulcer Cleansing Rinsed/ Irrigated with Saline -Foul Odor after Cleansing No -Anesthetic Used 5% Lidocaine Gel #1- LFA -Current Size (cm) - Length 0.1 -Current Size (cm) - Width 0.1 -Current Size (cm) - Depth 0.1 -Total Square Cm 0.01 -Exudate Amt None Present -Wound Margin Flat & Intact -Granulation Amt Large (67-100%) -Granulation Quality [place] -Necrosis Amt None Present (0 %) -Structure Exposed N/A -Texture (Dede-wound Skin Appearance) Scarring -Moisture (Dede-wound Skin Appearance) No Abnormality -Color (Dede-wound Skin Appearance) No Abnormality -Ulcer Cleansing Soap and Water -Foul Odor after Cleansing No -Anesthetic Used 5% Lidocaine Gel WC - Nurse 2 - General Ulcer CM Notes Start: 05/06/23 10:33 Freq: Status: Active Protocol: Activity Type Activity Date Activity User E-sign Co-sign Detail Recorded Client Recorded Date Recorded By Document 05/06/23 11:12 GM Desktop 05/06/23 11:25 GM Edit Result 05/06/23 11:12 GM (1) Desktop 05/06/23 11:27 GM (1) #3 R Forehead - Post Debridement (cm) - Length => 0.7 - Post Debridement (cm) - Width => 0.8 - Post Debridement (cm) - Depth => 0.1 - Total Square (Post) (cm) => 0.56 05/06/23 11:12 Wound Center Nurse 2 #4 Left Facial Inferior -Time 11:16 -Correct Patient Yes -Correct Side, Site, Position Yes -Correct Procedure Yes -Procedure Performed Yes -Type of Procedure Debridement -Clinical Debridement Epidermis / Dermis -Tissue Removed Epidermis -Post Debridement (cm) - Length 1 -Post Debridement (cm) - Width 1 -Post Debridement (cm) - Depth 0.1 -Total Square (Post) (cm) 1 -Area of Debridement (cm) - Length 1 -Area of Debridement (cm) - Width 1 -Total Square (Area) (cm) 1 -Tunneling No -Undermining/Tunneling No -Circular Undermining No -Wound/Ulcer Outcome Not Healed -Ulcer Cleansing Rinsed/ Irrigated with Saline -Foul Odor after Cleansing No -Bioengineered Tissue No -Bleeding Controlled with Pressure -Treatment Response Procedure Tolerated Well -Debridement - Open, 1st 20sq cm Yes -Debridement - Subq, 1st 20sq cm No #3 R Forehead -Time 11:23 -Correct Patient Yes -Correct Side, Site, Position Yes -Correct Procedure Yes -Post Debridement (cm) - Length 0.7 -Post Debridement (cm) - Width 0.8 -Post Debridement (cm) - Depth 0.1 -Total Square (Post) (cm) 0.56 #2- L FACIAL Superior -Time 11:12 -Correct Patient Yes -Correct Side, Site, Position Yes -Correct Procedure Yes -Procedure Performed Yes -Type of Procedure Debridement -Clinical Debridement Epidermis / Dermis -Tissue Removed Epidermis -Post Debridement (cm) - Length 1 -Post Debridement (cm) - Width 1.3 -Post Debridement (cm) - Depth 0.1 -Total Square (Post) (cm) 1.3 -Area of Debridement (cm) - Length 1 -Area of Debridement (cm) - Width 1.3 -Total Square (Area) (cm) 1.3 -Tunneling No -Undermining/Tunneling No -Circular Undermining No -Wound/Ulcer Outcome Not Healed -Ulcer Cleansing Rinsed/ Irrigated with Saline -Foul Odor after Cleansing No -Bleeding Controlled with Pressure -Treatment Response Procedure Tolerated Well -Debridement - Open, 1st 20sq cm No #1- LFA -Time 11:23 -Correct Patient Yes -Correct Side, Site, Position Yes -Correct Procedure Yes -Procedure Performed Yes -Type of Procedure Debridement -Clinical Debridement Subcutaneous -Tissue Removed Subcutaneous -Tunneling No -Undermining/Tunneling No -Circular Undermining No -Wound/Ulcer Outcome Not Healed -Ulcer Cleansing Rinsed/ Irrigated with Saline -Foul Odor after Cleansing No -Bioengineered Tissue No -Bleeding Controlled with Pressure -Treatment Response Procedure Tolerated Well -Debridement - Subq, 1st 20sq cm Yes Pain Scale: 0-10 Numeric Is Patient Pain Free? Yes - Nurse 3 - General Ulcer D/C NN Start: 05/06/23 10:33 Freq: Status: Active Protocol: Activity Type Activity Date Activity User E-sign Co-sign Detail Recorded Client Recorded Date Recorded By Document 05/06/23 11:36 RB Desktop 05/06/23 11:48 RB 05/06/23 11:36 Wound Care Center Nurse 3 #4 Left Facial Inferior -Ulcer Cleansing Rinsed/ Irrigated with Saline -Primary Dressing Applied Aquacel Extra, NonAdherent Contact Layer -Other Dressing silicone tape -Primary Dressing Covered/Secured with Dry Gauze, Secured with Tape -Aquacel Extra 1 #3 R Forehead -Ulcer Cleansing Wound Cleanser -Other Dressing aquafore -Primary Dressing Covered/Secured with Dry Gauze, Secured with Tape -Other Covering silicone tape #2- L FACIAL Superior -Ulcer Cleansing Rinsed/ Irrigated with Saline -Primary Dressing Applied NonAdherent Contact Layer -Other Dressing aquacel extra -Primary Dressing Covered/Secured with Dry Gauze, Secured with Tape #1- LFA -Ulcer Cleansing Rinsed/ Irrigated with Saline -Primary Dressing Applied NonAdherent Contact Layer -Other Dressing aquacel extra -Primary Dressing Covered/Secured with Dry Gauze, Secured with Tape Treatment Response Procedure Tolerated Well Pain Scale: 0-10 Numeric Is Patient Pain Free? Yes Teaching: Wound Center Dressing Your Wound -Person Taught Patient -Teaching Method Discussion, Demonstration -Response to teaching Verbalize understanding - Visit Discharge Discharge Condition Stable Ambulatory Status Ambulatory Transportation Private Auto Medication Reconcilliation completed & No provided to patient/care provider Clinical Summary of Care Provided Yes Additional Wound Wound debrided: Left Facial Wound (Superior ) Type of Debridement: Selective debridement Anesthesia Used: 4% Lidocaine Solution Depth: Down to and including healthy tissue Percentage of wound debrided: 100 Instrument Used: - (Gauze and Saline) Tissue Removed: Devitalized Tissue Severity: Limited To Skin Breakdown Amount of bleeding with debridement: Mild Bleeding Controlled with: Pressure Patient tolerated procedure: Patient tolerated procedure well Additional Wound Wound debrided: Left Facial ( Inferior ) Type of Debridement: Selective debridement Anesthesia Used: 5% Lidocaine Gel Depth: Down to and including healthy tissue Percentage of wound debrided: 100 Instrument Used: - (Gauze and Saline) Severity: Limited To Skin Breakdown Amount of bleeding with debridement: Mild Bleeding Controlled with: Pressure Assessment/Plan Assessment/Plan (1) Open wound of left forearm: CODE(S): S51.802A - Unspecified open wound of left forearm, initial encounter PLAN: Traumatic. Laceration (2) Non-healing surgical wound: CODE(S): T81.89XA - Other complications of procedures, not elsewhere classified, initial encounter (3) Open facial wound: CODE(S): S01.80XA - Unspecified open wound of other part of head, initial encounter PLAN: Plan Debridement done as documented above, procedure was well-tolerated. Continue Aquacel and adaptic to Forearm and also apply to right facial wound. Switch to Copious amount of Aquaphor to left sided facial wounds. Cover with gauze and tape. Continue adequate moisturizing. Continue Timur daily to twice daily and other chronic wound care management/recommendations. Their questions were answered and they were advised to call with any further questions or concerns. Follow-up in a week or sooner if needed. This note was generated with [employer] dictation software. It may contain incorrect words, spelling, and punctuation that were not noted in checking the note before signing.
[2023-05-13 10:46] VITALS: BP 111/48; PULSE 58; RESP 18; TEMP 36.6; BMI 21.6
--- NOTE | 2023-05-13 12:15 | PCM.WC.PN ---
History of Present Illness Date of Service: 05/13/23 Chief Complaint: Left Facial and Upper Extremity Wound History of Wound: Ms Penaloza is an 87 yo who was referred here due to non healing facial and left forearm wound. Had previously followed up with a Group Burner Machine. History of recurrent falls, fell with injury to her left face with subsequent graft closure in October at [place]. Recent visit to her surgeon due to non healing/significant slough for which she had debridement in office. Left upper extremity wound was said to be 2 weeks ago following another fall. Has had some dressing changes in the facility however decided to come to the wound center due to nonclosure/delay in healing. History of diabetes mellitus which is said to be well-controlled. Also history of dementia and lately, has had poor appetite. No chills, fever or otherwise feeling of unwell. Progress of Wound: No new concerns at this time. Improvement noted to most. Objective Data Objective Data Vital Signs: Vital Signs Temp Pulse Resp BP O2 Del Method 98 F 58 L 18 111/48 L Room Air 05/13/23 10:46 05/13/23 10:46 05/13/23 10:46 05/13/23 10:46 05/13/23 10:46 Oxygen Delivery Method Room Air Weight: 122 lb Body Mass Index (BMI) 21.6 Charges/Coding Procedures Integumentary 111xxx-113xx: [id number] Lazara subq tissue 20 sq cm/< Physical Exam Const alert and no apparent distress General Appearance: cooperative, well kempt and well developed HEENT normocephalic and hearing grossly normal bilaterally Eyes EOMs intact bilaterally Neck full ROM General: normal visual inspection Resp normal respiratory effort Effort and Inspection: able to speak in complete sentences Skin Wounds: wounds noted Neuro CN's II-XII intact bilaterally and moves all extremities Psych mental status grossly normal, thought process normal, cooperative and affect normal Debridement Note Debridement Note Wound debrided: Left Forearm Type of Debridement: Excisional debridement Anesthesia Used: 5% Lidocaine Gel Depth: Down to and including healthy tissue and in the subcutaneous layer Percentage of wound debrided: 100 Instrument Used: 3mm curette Tissue Removed: Slough and Devitalized Tissue Severity: Fat Layer Exposed Amount of bleeding with debridement: Mild Bleeding Controlled with: Pressure Patient tolerated procedure: Patient tolerated procedure well Post-Debridement Measurements and Additional Note: Post-Debridement Measurements/Treatment WC - Nurse 1 - General Ulcer Assessment Start: 05/06/23 10:33 Freq: Status: Active Protocol: JESÚS Activity Type Activity Date Activity User E-sign Co-sign Detail Recorded Client Recorded Date Recorded By Document 05/06/23 10:37 DL Desktop 05/06/23 10:52 DL Document 05/13/23 10:46 MT Desktop 05/13/23 10:53 MT 05/06/23 05/13/23 10:37 10:46 - Today's Visit Information Type of service Follow-up Visit Follow-up Visit (Physician/ROLL FORM OPERATOR (Physician/ROLL FORM OPERATOR ) ) Arrival Mode Ambulatory, Ambulatory, Walker Walker Transfer Assistance None Accompanied by daughter Patient Identification Verified (Name & Yes Yes ) Patient Requires Transmission-Based No Precautions Safety Precautions Fall Prevention Height and Weight Body Mass Index (BMI) 21.6 21.6 BMI Classification Normal Normal Vital Signs Temperature (97.8 F-99.1 F) 98.3 F 98 F Temperature Source Temporal Temporal Pulse Rate (60-100) 59 L 58 L Pulse Location Monitor Monitor Respiratory Rate (12-18) 20 H 18 Respiratory rate source Observation Observation Oxygen Delivery Method Room Air Blood Pressure (90/60-120/80) 157/46 H 111/48 L Blood Pressure Mean (mm Hg) 83 69 Source Monitor Monitor Position Sitting Blood Pressure Location Left Arm History Since Last Visit- (Skip if this is Patient's initial visit) Have you changed medications since your No last visit? Any new allergies or adverse reactions No Had a fall/change in ADL's that may No increase risk of falls Signs or symptoms of abuse and/or No neglect since last visit Have you been in the hospital since your No last visit? Has dressing in place as prescribed Yes Yes Has compression in place as prescribed N/A N/A Has offloadiing in place as prescribed N/A N/A Experienced any changes in pain level or No management Left Footwear Regular Shoe Right Footwear Regular Shoe Pain Scale: 0-10 Numeric Is Patient Pain Free? Yes Yes - Nurse 1 - General Ulcer Measurement Start: 05/06/23 10:33 Freq: Status: Active Protocol: Activity Type Activity Date Activity User E-sign Co-sign Detail Recorded Client Recorded Date Recorded By Document 05/06/23 10:37 DL Desktop 05/06/23 10:52 DL Document 05/13/23 10:46 MT Desktop 05/13/23 10:53 MT 05/06/23 05/13/23 10:37 10:46 Wound Center Nurse 1 #4 Left Facial Inferior -Current Size (cm) - Length 0.1 -Current Size (cm) - Width 0.1 -Current Size (cm) - Depth 0.1 -Total Square Cm 0.01 -Exudate Amt Small -Exudate Type Serosanguineous -Wound Margin Flat & Intact -Granulation Amt Large (67-100%) -Granulation Quality Pale,Rough And Ready -Necrosis Amt None Present (0 %) -Texture (Dede-wound Skin Appearance) Assessed -Moisture (Dede-wound Skin Appearance) Assessed -Color (Dede-wound Skin Appearance) Assessed -Temperature (Dede-wound Skin No Abnormality Appearance) (Pt Warm) -Tenderness on Palpation (Dede-wound No Skin Appearance) -Ulcer Cleansing Rinsed/ Irrigated with Saline -Foul Odor after Cleansing No -Anesthetic Used 5% Lidocaine Gel #3 R Forehead -Current Size (cm) - Length 0.1 0.1 -Current Size (cm) - Width 0.1 0.1 -Current Size (cm) - Depth 0.1 0.1 -Total Square Cm 0.01 0.01 -Photo Taken Yes -Exudate Amt Small -Exudate Type Serosanguineous -Wound Margin Flat & Intact -Granulation Amt Large (67-100%) -Granulation Quality Pale,Rough And Ready -Slough/Fibrin No -Texture (Dede-wound Skin Appearance) Assessed, Scarring -Moisture (Dede-wound Skin Appearance) Assessed -Color (Dede-wound Skin Appearance) Assessed -Temperature (Dede-wound Skin No Abnormality Appearance) (Pt Warm) -Tenderness on Palpation (Dede-wound No Skin Appearance) -Ulcer Cleansing Rinsed/ Irrigated with Saline -Foul Odor after Cleansing No -Anesthetic Used 5% Lidocaine Gel #2- L FACIAL Superior -Current Size (cm) - Length 0.9 0.7 -Current Size (cm) - Width 0.6 0.7 -Current Size (cm) - Depth 0.1 0.1 -Total Square Cm 0.54 0.49 -Exudate Amt Small Small -Exudate Type Serosanguineous Serous -Wound Margin Distinct, Flat & Intact Outline Attached -Granulation Amt Large (67-100%) Large (67-100%) -Granulation Quality Rough And Ready Pale,Rough And Ready -Slough/Fibrin No -Necrosis Amt None Present (0 %) -Structure Exposed N/A -Texture (Dede-wound Skin Appearance) Scarring Assessed -Moisture (Dede-wound Skin Appearance) Dry/Scaly Assessed -Color (Dede-wound Skin Appearance) No Abnormality Assessed -Temperature (Dede-wound Skin No Abnormality No Abnormality Appearance) (Pt Warm) (Pt Warm) -Tenderness on Palpation (Dede-wound No Skin Appearance) -Ulcer Cleansing Rinsed/ Soap and Water Irrigated with Saline -Foul Odor after Cleansing No No -Anesthetic Used 5% Lidocaine 5% Lidocaine Gel Gel #1- LFA -Current Size (cm) - Length 0.1 0.1 -Current Size (cm) - Width 0.1 0.1 -Current Size (cm) - Depth 0.1 0.1 -Total Square Cm 0.01 0.01 -Epithelialization Large 67-100% -Exudate Amt None Present -Wound Margin Flat & Intact -Granulation Amt Large (67-100%) -Granulation Quality Rough And Ready -Necrosis Amt None Present (0 %) -Structure Exposed N/A -Texture (Dede-wound Skin Appearance) Scarring -Moisture (Dede-wound Skin Appearance) No Abnormality -Color (Dede-wound Skin Appearance) No Abnormality -Ulcer Cleansing Soap and Water -Foul Odor after Cleansing No -Anesthetic Used 5% Lidocaine Gel Lower Limb Edema Present NA WC - Nurse 2 - General Ulcer CM Notes Start: 05/06/23 10:33 Freq: Status: Active Protocol: Activity Type Activity Date Activity User E-sign Co-sign Detail Recorded Client Recorded Date Recorded By Document 05/06/23 11:12 GM Desktop 05/06/23 11:25 GM Edit Result 05/06/23 11:12 GM (1) Desktop 05/06/23 11:27 GM Document 05/13/23 11:07 GM Desktop 05/13/23 11:22 GM (1) #3 R Forehead - Post Debridement (cm) - Length => 0.7 - Post Debridement (cm) - Width => 0.8 - Post Debridement (cm) - Depth => 0.1 - Total Square (Post) (cm) => 0.56 05/06/23 05/13/23 11:12 11:07 Wound Center Nurse 2 #4 Left Facial Inferior -Time 11:16 11:07 -Correct Patient Yes Yes -Correct Side, Site, Position Yes Yes -Correct Procedure Yes Yes -Procedure Performed Yes Yes -Type of Procedure Debridement Debridement -Clinical Debridement Epidermis / Epidermis / Dermis Dermis -Tissue Removed Epidermis Epidermis, Dermis -Post Debridement (cm) - Length 1 0.6 -Post Debridement (cm) - Width 1 1.1 -Post Debridement (cm) - Depth 0.1 0.1 -Total Square (Post) (cm) 1 0.66 -Area of Debridement (cm) - Length 1 0.6 -Area of Debridement (cm) - Width 1 1.1 -Total Square (Area) (cm) 1 0.66 -Tunneling No No -Undermining/Tunneling No No -Circular Undermining No No -Wound/Ulcer Outcome Not Healed Not Healed -Ulcer Cleansing Rinsed/ Rinsed/ Irrigated with Irrigated with Saline Saline -Foul Odor after Cleansing No No -Bioengineered Tissue No -Bleeding Controlled with Pressure Pressure -Treatment Response Procedure Procedure Tolerated Well Tolerated Well -Debridement - Open, 1st 20sq cm Yes Yes -Debridement - Subq, 1st 20sq cm No #3 R Forehead -Time 11:23 11:08 -Correct Patient Yes Yes -Correct Side, Site, Position Yes Yes -Correct Procedure Yes Yes -Procedure Performed Yes -Type of Procedure Debridement -Clinical Debridement Subcutaneous -Tissue Removed Subcutaneous -Post Debridement (cm) - Length 0.7 0.2 -Post Debridement (cm) - Width 0.8 0.3 -Post Debridement (cm) - Depth 0.1 0.1 -Total Square (Post) (cm) 0.56 0.06 -Area of Debridement (cm) - Length 0.2 -Area of Debridement (cm) - Width 0.3 -Total Square (Area) (cm) 0.06 -Tunneling No -Undermining/Tunneling No -Circular Undermining No -Wound/Ulcer Outcome Not Healed -Ulcer Cleansing Rinsed/ Irrigated with Saline -Foul Odor after Cleansing No -Bleeding Controlled with Pressure -Treatment Response Procedure Tolerated Well -Debridement - Subq, 1st 20sq cm No #2- L FACIAL Superior -Time 11:12 11:08 -Correct Patient Yes Yes -Correct Side, Site, Position Yes Yes -Correct Procedure Yes Yes -Procedure Performed Yes Yes -Type of Procedure Debridement Debridement -Clinical Debridement Epidermis / Epidermis / Dermis Dermis -Tissue Removed Epidermis Epidermis, Dermis -Post Debridement (cm) - Length 1 0.4 -Post Debridement (cm) - Width 1.3 0.1 -Post Debridement (cm) - Depth 0.1 0.1 -Total Square (Post) (cm) 1.3 0.04 -Area of Debridement (cm) - Length 1 0.4 -Area of Debridement (cm) - Width 1.3 0.1 -Total Square (Area) (cm) 1.3 0.04 -Tunneling No No -Undermining/Tunneling No No -Circular Undermining No No -Wound/Ulcer Outcome Not Healed Not Healed -Ulcer Cleansing Rinsed/ Rinsed/ Irrigated with Irrigated with Saline Saline -Foul Odor after Cleansing No No -Bioengineered Tissue No -Bleeding Controlled with Pressure Pressure -Treatment Response Procedure Procedure Tolerated Well Tolerated Well -Debridement - Open, 1st 20sq cm No No #1- LFA -Time 11:23 11:09 -Correct Patient Yes Yes -Correct Side, Site, Position Yes Yes -Correct Procedure Yes Yes -Procedure Performed Yes Yes -Type of Procedure Debridement Debridement -Clinical Debridement Subcutaneous Subcutaneous -Tissue Removed Subcutaneous Subcutaneous -Post Debridement (cm) - Length 0.8 -Post Debridement (cm) - Width 0.2 -Post Debridement (cm) - Depth 0.1 -Total Square (Post) (cm) 0.16 -Area of Debridement (cm) - Length 0.8 -Area of Debridement (cm) - Width 0.2 -Total Square (Area) (cm) 0.16 -Tunneling No No -Undermining/Tunneling No No -Circular Undermining No No -Wound/Ulcer Outcome Not Healed Not Healed -Ulcer Cleansing Rinsed/ Rinsed/ Irrigated with Irrigated with Saline Saline -Foul Odor after Cleansing No No -Bioengineered Tissue No No -Bleeding Controlled with Pressure -Treatment Response Procedure Tolerated Well -Debridement - Subq, 1st 20sq cm Yes Yes Pain Scale: 0-10 Numeric Is Patient Pain Free? Yes Yes WC - Nurse 3 - General Ulcer D/C NN Start: 05/06/23 10:33 Freq: Status: Active Protocol: Activity Type Activity Date Activity User E-sign Co-sign Detail Recorded Client Recorded Date Recorded By Document 05/06/23 11:36 RB Desktop 05/06/23 11:48 RB Document 05/13/23 11:49 RB Desktop 05/13/23 11:50 RB 05/06/23 05/13/23 11:36 11:49 Wound Care Center Nurse 3 #4 Left Facial Inferior -Ulcer Cleansing Rinsed/ Irrigated with Saline -Primary Dressing Applied Aquacel Extra, NonAdherent Contact Layer -Other Dressing silicone tape hydrogel -Primary Dressing Covered/Secured with Dry Gauze, Dry Gauze, Secured with Secured with Tape Tape -Other Covering silicone tape to all wounds -Aquacel Extra 1 #3 R Forehead -Ulcer Cleansing Wound Cleanser Rinsed/ Irrigated with Saline -Primary Dressing Applied Aquacel Extra, NonAdherent Contact Layer -Other Dressing aquafore -Primary Dressing Covered/Secured with Dry Gauze, Dry Gauze, Secured with Secured with Tape Tape -Other Covering silicone tape -Aquacel Extra 1 #2- L FACIAL Superior -Ulcer Cleansing Rinsed/ Rinsed/ Irrigated with Irrigated with Saline Saline -Primary Dressing Applied NonAdherent NonAdherent Contact Layer Contact Layer -Other Dressing aquacel extra aquacel extra -Primary Dressing Covered/Secured with Dry Gauze, Dry Gauze, Secured with Secured with Tape Tape #1- LFA -Ulcer Cleansing Rinsed/ Rinsed/ Irrigated with Irrigated with Saline Saline -Primary Dressing Applied NonAdherent NonAdherent Contact Layer Contact Layer -Other Dressing aquacel extra aquacel extra -Primary Dressing Covered/Secured with Dry Gauze, Dry Gauze & Secured with Roll Gauze, Tape Secured with Tape Treatment Response Procedure Procedure Tolerated Well Tolerated Well Pain Scale: 0-10 Numeric Is Patient Pain Free? Yes Yes Teaching: Wound Center Dressing Your Wound -Person Taught Patient -Teaching Method Discussion, Demonstration -Response to teaching Verbalize understanding WC - Visit Discharge Discharge Condition Stable Stable Ambulatory Status Ambulatory Walker Transportation Private Auto Private Auto Accompanied by daughter Medication Reconcilliation completed & No No provided to patient/care provider Clinical Summary of Care Provided Yes Yes Additional Wound Wound debrided: Left Facial Wound (Superior ) Type of Debridement: Selective debridement Anesthesia Used: 4% Lidocaine Solution Depth: Down to and including healthy tissue Percentage of wound debrided: 100 Instrument Used: - (Gauze and Saline) Tissue Removed: Devitalized Tissue Severity: Limited To Skin Breakdown Amount of bleeding with debridement: Mild Bleeding Controlled with: Pressure Patient tolerated procedure: Patient tolerated procedure well Additional Wound Wound debrided: Left Facial ( Inferior ) Type of Debridement: Selective debridement Anesthesia Used: 5% Lidocaine Gel Depth: Down to and including healthy tissue Percentage of wound debrided: 100 Instrument Used: - (Gauze and Saline) Severity: Limited To Skin Breakdown Amount of bleeding with debridement: Mild Bleeding Controlled with: Pressure Additional Wound Wound debrided: Right Facial Type of Debridement: Excisional debridement Anesthesia Used: 5% Lidocaine Gel Depth: Down to and including healthy tissue and in the subcutaneous layer Percentage of wound debrided: 100 Instrument Used: 3mm curette Tissue Removed: Slough and devitalized tissue Severity: Fat Layer Exposed Amount of bleeding with debridement: Mild Bleeding Controlled with: Pressure Patient tolerated procedure: Patient tolerated procedure well Assessment/Plan Assessment/Plan (1) Open wound of left forearm: CODE(S): S51.802A - Unspecified open wound of left forearm, initial encounter PLAN: Traumatic. Laceration (2) Non-healing surgical wound: CODE(S): T81.89XA - Other complications of procedures, not elsewhere classified, initial encounter (3) Open facial wound: CODE(S): S01.80XA - Unspecified open wound of other part of head, initial encounter PLAN: Traumatic, laceration PLAN: Plan Debridement done as documented above, procedure was well-tolerated. Some improvement noted. Continue Aquacel and adaptic to Left Forearm and right facial wound. Continue copious amount of Aquaphor to left sided facial wounds. Cover with gauze and tape. May change twice daily. Continue Timur daily to twice daily and other chronic wound care management/recommendations. Their questions were answered and they were advised to call with any further questions or concerns. Follow-up in a week or sooner if needed. This note was generated with [employer] software. It may contain incorrect words, spelling, and punctuation that were not noted in checking the note before signing.
[2023-05-20 13:10] VITALS: BP 171/60; PULSE 61; RESP 18; TEMP 36.4; BMI 21.6
== END 2023-05-30 23:59 | disposition home or self-care (01) ==
LOC: WC 13:00
PROVIDERS: PCP Family Medicine; Referring Provider Family Medicine; Visit Provider Internal Medicine
DX: S51.802A Unspecified open wound of left forearm, initial encounter (principal); F03.90 Unspecified dementia, unspecified severity, without behavioral disturbance, psychotic disturbance, mood disturbance, and anxiety; E11.9 Type 2 diabetes mellitus without complications; S01.80XA Unspecified open wound of other part of head, initial encounter; T81.89XA Other complications of procedures, not elsewhere classified, initial encounter
CPT/HCPCS: 11042; 97597; 99212; G0463

== ENCOUNTER 2023-06-03 10:38 | Outpatient (RCR) | payer MEDICARE, OTHER, SELFPAY ==
[2023-05-31 00:40] VITALS: BP 171/60; PULSE 61; RESP 18; TEMP 36.4; BMI 21.6
[2023-06-03 11:00] VITALS: BP 154/47; PULSE 63; RESP 18; TEMP 36.2; BMI 21.6
--- NOTE | 2023-06-03 12:31 | PCM.WC.PN ---
History of Present Illness Date of Service: 06/03/23 Chief Complaint: Left Facial and Upper Extremity Wound History of Wound: Ms Penaloza is an 87 yo who was referred here due to non healing facial and left forearm wound. Had previously followed up with a Candle Extrusion Machine Operator. History of recurrent falls, fell with injury to her left face with subsequent graft closure in October at [place]. Recent visit to her surgeon due to non healing/significant slough for which she had debridement in office. Left upper extremity wound was said to be 2 weeks ago following another fall. Has had some dressing changes in the facility however decided to come to the wound center due to nonclosure/delay in healing. History of diabetes mellitus which is said to be well-controlled. Also history of dementia and lately, has had poor appetite. No chills, fever or otherwise feeling of unwell. Progress of Wound: No new concerns at this time. Left Forearm wound is healed and Left facial with only minimal area left. No new concerns reported by the patient or daughter. Objective Data Objective Data Vital Signs: Vital Signs Temp Pulse Resp BP O2 Del Method 97.1 F L 63 18 154/47 H Room Air 06/03/23 11:00 06/03/23 11:00 06/03/23 11:00 06/03/23 11:00 06/03/23 11:00 Oxygen Delivery Method Room Air Weight: 122 lb Body Mass Index (BMI) 21.6 Charges/Coding Visit Charges Office Visits / Consults: [id number] OV L3 Est 20min Physical Exam Const alert and no apparent distress General Appearance: cooperative, well kempt and well developed HEENT normocephalic and hearing grossly normal bilaterally Eyes EOMs intact bilaterally Neck full ROM General: normal visual inspection Resp normal respiratory effort Effort and Inspection: able to speak in complete sentences Skin Wounds: wounds noted Neuro CN's II-XII intact bilaterally and moves all extremities Psych mental status grossly normal, thought process normal, cooperative and affect normal Debridement Note Debridement Note Post-Debridement Measurements and Additional Note: Post-Debridement Measurements/Treatment YEHUDA - Nurse 1 - General Ulcer Assessment Start: 06/03/23 10:56 Freq: Status: Active Protocol: JESÚS Activity Type Activity Date Activity User E-sign Co-sign Detail Recorded Client Recorded Date Recorded By Document 06/03/23 11:00 KW Desktop 06/03/23 11:20 KW 06/03/23 11:00 - Today's Visit Information Type of service Follow-up Visit (Physician/DIAMOND GRADER ) Arrival Mode Ambulatory, Walker Accompanied by DAUGHTER Patient Identification Verified (Name & Yes ) Height and Weight Body Mass Index (BMI) 21.6 BMI Classification Normal Vital Signs Temperature (97.8 F-99.1 F) 97.1 F L Temperature Source Temporal Pulse Rate (60-100) 63 Pulse Location Monitor Respiratory Rate (12-18) 18 Respiratory rate source Observation Oxygen Delivery Method Room Air Blood Pressure (90/60-120/80) 154/47 H Blood Pressure Mean (mm Hg) 82 Source Monitor Position Semi-Fowlers Blood Pressure Location Left Arm History Since Last Visit- (Skip if this is Patient's initial visit) Have you changed medications since your No last visit? Any new allergies or adverse reactions No Had a fall/change in ADL's that may No increase risk of falls Signs or symptoms of abuse and/or No neglect since last visit Have you been in the hospital since your No last visit? Has dressing in place as prescribed No Has compression in place as prescribed N/A Has offloadiing in place as prescribed N/A Experienced any changes in pain level or No management Left Footwear Regular Shoe Right Footwear Regular Shoe Pain Scale: 0-10 Numeric Is Patient Pain Free? Yes - Nurse 1 - General Ulcer Measurement Start: 06/03/23 10:56 Freq: Status: Active Protocol: Activity Type Activity Date Activity User E-sign Co-sign Detail Recorded Client Recorded Date Recorded By Document 06/03/23 11:00 Desktop 06/03/23 11:20 06/03/23 11:00 Wound Center Nurse 1 #4 Left Facial Inferior -Anesthetic Used 5% Lidocaine Gel -Wound Comment(s) SCABBED #3 R Forehead -Wound Comment(s) SCABBED #2- L FACIAL Superior -Wound Comment(s) SCABBED - Nurse 2 - General Ulcer CM Notes Start: 06/03/23 10:56 Freq: Status: Active Protocol: Activity Type Activity Date Activity User E-sign Co-sign Detail Recorded Client Recorded Date Recorded By Document 06/03/23 11:41 Desktop 06/03/23 11:42 06/03/23 11:41 Wound Center Nurse 2 #4 Left Facial Inferior -Time 11:41 -Correct Patient Yes -Correct Side, Site, Position Yes -Wound/Ulcer Outcome Healed- Epithelialized -Wound Comment(s) adequately healed #1- LFA -Time 11:42 -Correct Patient Yes -Correct Side, Site, Position Yes -Wound/Ulcer Outcome Healed- Epithelialized Pain Scale: 0-10 Numeric Is Patient Pain Free? Yes - Nurse 3 - General Ulcer D/C NN Start: 06/03/23 10:56 Freq: Status: Active Protocol: Activity Type Activity Date Activity User E-sign Co-sign Detail Recorded Client Recorded Date Recorded By Document 06/03/23 11:46 Desktop 06/03/23 11:47 06/03/23 11:46 Wound Care Center Nurse 3 #4 Left Facial Inferior -Ulcer Cleansing Not Cleansed -Foul Odor after Cleansing No -Primary Dressing Covered/Secured with Dry Gauze, Secured with Tape -Wound Comment(s) lotion applied Pain Scale: 0-10 Numeric Is Patient Pain Free? Yes - Visit Discharge Discharge Condition Stable Ambulatory Status Ambulatory Transportation Private Auto Clinical Summary of Care Provided Yes Assessment/Plan Assessment/Plan (1) Open wound of left forearm: CODE(S): S51.802A - Unspecified open wound of left forearm, initial encounter PLAN: Traumatic. Laceration (2) Non-healing surgical wound: CODE(S): T81.89XA - Other complications of procedures, not elsewhere classified, initial encounter (3) Open facial wound: CODE(S): S01.80XA - Unspecified open wound of other part of head, initial encounter PLAN: Traumatic, laceration PLAN: Plan Left forearm is healed. Left facial area with only minimal area left. Continue copious amount of Aquaphor to the facial area, cover with gauze. Continue this until healed and for 2 weeks thereafter. Patient's daughter voiced understanding. Timur is said to be cost prohibitive, they were advised that she could take Ensure or Premier protein daily instead of twice daily due to diarrhea as well. Their questions were answered and they were advised to call with any further questions or concerns. Discharge from the wound center. This note was generated with [employer] software. It may contain incorrect words, spelling, and punctuation that were not noted in checking the note before signing.
--- NOTE | 2023-06-04 12:30 | WC ---
4.4.24 LT FACIAL INF
--- NOTE | 2023-06-04 12:31 | WC ---
4.4.24 LT FACIAL SUP
== END 2023-06-29 23:59 | disposition home or self-care (01) ==
LOC: WC 10:38
PROVIDERS: PCP Family Medicine; Referring Provider Family Medicine; Visit Provider Internal Medicine
DX: S51.802A Unspecified open wound of left forearm, initial encounter (principal); F03.90 Unspecified dementia, unspecified severity, without behavioral disturbance, psychotic disturbance, mood disturbance, and anxiety; E11.9 Type 2 diabetes mellitus without complications; T81.89XA Other complications of procedures, not elsewhere classified, initial encounter; S01.80XA Unspecified open wound of other part of head, initial encounter; R29.6 Repeated falls; W19.XXXA Unspecified fall, initial encounter
CPT/HCPCS: 99213; G0463

== ENCOUNTER → 2023-06-22 | Outpatient (REF) | payer MEDICARE, OTHER, SELFPAY ==
[2023-06-23 08:01] LABS: Bacteria 0 SEEN /hpf (None Seen); Mucous, Urine 0 SEEN /hpf (<or=2+)
[2023-06-23 08:08] LABS: Color, Urine Yellow (Yellow); Glucose, Dipstick Normal (Normal); Ketone-Dipstick Negative (Negative); Leukocyte Esterase-Dipstick 500 /ul (Negative); Nitrite-Dipstick Negative (Negative); Occult Blood-Urine 250 /ul (Negative); Protein-Dipstick 15 mg/dl (Negative); Specific Gravity, Urine 1.015 (1.002-1.030); Urine Bilirubin Dipstick Negative (Negative); Urine Clarity Clear (Clear); Urine Urobilinogen Normal (Normal)
[2023-06-23 08:13] LABS: Red Blood Cells-Urine 10-25 SEEN /hpf (0-5); Squamous Epithelial Cells - UA 0-5 SEEN /hpf (5-10); White Blood Cells 5-10 SEEN /hpf (0-5)
[2023-06-23 08:14] LABS: Renal Epithelial Cells 0-5 SEEN /hpf (0-5)
== END ==
LOC: OLS.BROOKB 19:20
PROVIDERS: PCP Family Medicine; Visit Provider Family Medicine
DX: R41.82 Altered mental status, unspecified (principal)
CPT/HCPCS: 81001; 87086; 87088

== ENCOUNTER 2023-07-02 16:28 | Emergency (ER) | payer MEDICARE, OTHER, SELFPAY ==
[2023-07-02 16:29] VITALS: BP 158/88; PULSE 62; RESP 18; TEMP 36.6; O2SAT 100
--- NOTE | 2023-07-02 16:45 | EX.ED.DYSGE1 ---
HPI History of Present Illness Chief Complaint: Cellulitis Narrative Narrative: History and physical is limited secondary to dementia. Patient presents from [facility] with her daughter because of redness and swelling of her right cheek. Daughter relates history that she had Mohs procedure performed on the left side of her face. Previously, she had fallen, and 3 areas of her wound dehisced. She has had a skin graft since then that was performed in [place]. There is an area on the lower part of her left cheek which is not healing well. Her daughter noticed today that her right cheek had a blister on it, and was starting to swell and become more red. The redness seems to be swelling. They have not noticed that she has had a fever. They state that the RN there was concerned that she might need antibiotics so they present her to the emergency department. Patient was seen earlier this year for cellulitis of her left heel, which was resolved. She was put on antibiotics at that point. [facility] Medical History Non-healing surgical wound Open facial wound Open wound of left forearm Home Medications levothyroxine 25 mcg tablet 50 mcg PO DAILY 12/21/12 [History Last Taken Unknown] allopurinol 300 mg tablet 300 mg PO DAILY 06/13/16 [History Last Taken Unknown] atorvastatin 40 mg tablet 40 mg PO DAILY 11/12/17 [History Last Taken Unknown] colchicine 0.6 mg capsule 0.3 mg PO DAILY 11/12/17 [History Last Taken Unknown] insulin degludec 100 unit/mL (3 mL) subcutaneous pen (Tresiba FlexTouch U-100 insulin) 10 unit subcut QHS 11/12/17 [History Last Taken Unknown] metoprolol tartrate 50 mg tablet 50 mg PO BID 11/12/17 [History Last Taken Unknown] sertraline 50 mg tablet 50 mg PO QHS 11/12/17 [History Last Taken Unknown] ascorbic acid (vitamin C) 500 mg tablet (Vitamin C) 500 mg PO BID 03/19/23 [History Last Taken Unknown] cephalexin 250 mg capsule 250 mg PO DAILY 03/19/23 [History Last Taken Unknown] cholecalciferol (vitamin D3) 125 mcg (5,000 unit) tablet (Vitamin D3) 5,000 unit PO DAILY 03/19/23 [History Last Taken Unknown] cholestyramine (with sugar) 4 gram powder for susp in a packet 1 ea PO DAILY 03/19/23 [History Last Taken Unknown] ferrous sulfate 325 mg (65 mg iron) tablet (Feosol) 325 mg PO DAILY 03/19/23 [History Last Taken Unknown] memantine 10 mg tablet 5 mg PO BID 03/19/23 [History Last Taken Unknown] acetaminophen 650 mg tablet,extended release 650 mg PO Q8H PRN fever or pain 04/08/23 [History Last Taken Unknown] loperamide 2 mg capsule (Anti-Diarrheal (loperamide)) 4 mg PO Q6H PRN loose stool 04/08/23 [History Last Taken Unknown] Lactobacillus acidophilus 20 billion cell capsule (Florajen Acidophilus) 20,000 mmu cells PO DAILY 07/02/23 [History Last Taken Unknown] chlorthalidone 25 mg tablet 25 mg PO DAILY 07/02/23 [History Last Taken Unknown] doxycycline hyclate 100 mg capsule 100 mg PO BID #14 caps 07/02/23 [Rx Last Taken Unknown] fluconazole 150 mg tablet 150 mg PO DAILY PRN yeast infection 1 dose #1 TAB 07/02/23 [Rx Last Taken Unknown] Allergy/AdvReac Type Severity Reaction Status Date / Time amoxicillin [From Augmentin] Allergy Severe Hives Verified 07/02/23 16:28 clavulanic acid Allergy Severe Hives Verified 07/02/23 16:28 [From Augmentin] sulfamethoxazole AdvReac Nausea Verified 07/02/23 16:28 [From Bactrim] trimethoprim [From Bactrim] AdvReac Nausea Verified 07/02/23 16:28 Social History Smoking Status: Never smoker ROS ROS ED ROS Narrative Unable to obtain from patient secondary to dementia. According to daughter, no fevers or chills. Positive small blister on right cheek with surrounding erythema, mild swelling of right cheek. EXAM Physical Exam Narrative Exam Narrative: Afebrile. Vital signs noted. HEENT: Normocephalic. Atraumatic. PERRL, EOMI. Neck soft and supple. No point tenderness or step off. Cardiovascular: Regular rate and rhythm. No murmurs, rubs, or gallops appreciated. Respiratory: No tachypnea. Lungs clear to auscultation bilaterally. Gastrointestinal: Abdomen soft, nontender, with normoactive bowel sounds. No rebound or guarding. Neurological: Awake. Alert. Consistent with dementia. Skin: No rash. Right cheek with small blister and moderate surrounding erythema. No pallor. Left facial skin graft with mild erythema lower portion of previous surgical incision. No fluctuance. Musculoskeletal: No pedal edema. Full range of motion extremities. Const Vital Signs: 07/02/23 16:29 Temperature 97.8 F Temperature Source Temporal Pulse Rate 62 Respiratory Rate 18 Blood Pressure 158/88 H Blood Pressure Mean 111 Pulse Ox 100 Oxygen Delivery Method Room Air MDM MDM MDM Narrative Medical decision making narrative: I reviewed the patient's prior records. When she was seen earlier, longterm papers noted that she is DO NOT RESUSCITATE Comfort [facility] only. However, given that she is in the memory care unit, I do not think she is septic but I will obtain a CBC and a BMP to make sure she does not have elevated white count. In comparison to other laboratory work, she has been neutropenic. For her cellulitis of her heel she was placed on ciprofloxacin and doxycycline given her allergies to Bactrim and Augmentin. She was given her first dose of doxycycline here. In discussion with her daughter, they were hoping more to get antibiotics and treated early and prevent her from having to be admitted. I reviewed her laboratory work and she has a chronic neutropenia with it at 2.4 today. She also has chronic thrombocytopenia, but platelet count is low at 38. In discussion with her daughter, it was not felt that she needed a platelet transfusion. BUN is elevated at 31 with creatinine 1.50, while glucose is elevated 331, anion gap is normal at 6 so I have low concern for diabetic ketoacidosis. At this point in time, I feel she can be discharged to follow-up with her primary care provider. Regarding antibiotic choice, although last time she was placed on doxycycline and Cipro, I feel that doxycycline outpatient trial should be sufficient. Last time she received antibiotics, she ended up with a vaginal yeast infection. I wrote her for Diflucan to take as needed. I feel she can be discharged safely home with follow-up. Family is agreeable to the plan. Disposition is discharged in stable condition. History & Record Review Discussion w/independent historian: Family Additional record(s) reviewed:: Prior ED visit Lab Data Attestation: I reviewed the patient's lab results. Labs: Laboratory Results - last 24 hr 07/02/23 17:00 WBC 2.4 L RBC 3.39 L Hgb 10.6 L Hct 32.5 L MCV 95.9 MCH 31.3 MCHC 32.6 RDW Std Deviation 49.8 H RDW Coeff of Beatrice 14.3 Plt Count 38 L* MPV 9.4 Immature Gran % (Auto) 0.400 Neut % (Auto) 68.2 Lymph % (Auto) 23.0 [place] % (Auto) 5.9 Eos % (Auto) 2.1 Baso % (Auto) 0.4 Absolute Neuts (auto) 1.6 L Absolute Lymphs (auto) 0.55 L Nucleated RBC % 0 Differential Comment SEE COMMENTS Diff Path Review May foll Platelet Estimate MKD DEC RBC Morphology N CHROM Anisocytosis RARE Macrocytosis RARE Ovalocytes RARE Sodium 139 Potassium 4.0 Chloride 109 H Carbon Dioxide 24.0 Anion Gap 6 BUN 31 H Creatinine 1.50 H Est GFR (MDRD) Af Amer 42 L Est GFR (MDRD) Non-Af 35 L BUN/Creatinine Ratio 20.7 H Glucose 331 H Calcium 9.1 Discharge Plan Triage Chief Complaint: Cellulitis ED Provider: Baljit Jordan Dx/Rx/DC Orders Clinical Impression: Facial cellulitis, Chronic kidney disease Instructions: ED Cellulitis, Facial Prescriptions: New doxycycline hyclate 100 mg capsule 100 mg PO BID Qty: 14 0RF fluconazole 150 mg tablet 150 mg PO DAILY PRN (Reason: yeast infection) Qty: 1 0RF Rx Instructions: administer on day 1 of therapy No Action levothyroxine 25 MCG tablet 50 mcg PO DAILY allopurinol 300 MG tablet 300 mg PO DAILY atorvastatin 40 MG tablet 40 mg PO DAILY metoprolol tartrate 50 MG tablet 50 mg PO BID sertraline 50 MG tablet 50 mg PO QHS insulin degludec [Tresiba FlexTouch U-100] 100 UNIT/ML insulin pen 10 unit subcut QHS colchicine 0.6 MG tablet 0.3 mg PO DAILY memantine 10 mg tablet 5 mg PO BID cephalexin 250 mg capsule 250 mg PO DAILY cholestyramine (with sugar) 4 gram powder in packet 1 ea PO DAILY ferrous sulfate [Feosol] 325 mg (65 mg iron) tablet 325 mg PO DAILY ascorbic acid (vitamin C) [Vitamin C] 500 mg tablet 500 mg PO BID cholecalciferol (vitamin D3) [Vitamin D3] 125 mcg (5,000 unit) tablet 5,000 unit PO DAILY acetaminophen 650 mg tablet extended release 650 mg PO Q8H PRN (Reason: fever or pain) loperamide [Anti-Diarrheal (loperamide)] 2 mg capsule 4 mg PO Q6H PRN (Reason: loose stool) Patient Comments: AFTER EACH LOOSE STOOL. MAX DOSE 8 CAPSULES DAILY chlorthalidone 25 mg tablet 25 mg PO DAILY Florajen Acidophilus 20 billion cell capsule 20,000 mmu cells PO DAILY Primary Care Provider: Sneha Mabry Referrals: Sneha Mabry MD [Primary Care Provider] - 1-2 Days if not improving Disposition Disposition: Home, Self Care
[2023-07-02] MEDS: Doxycycline 100 MG CAPSULE PO (16:54)
[2023-07-02 17:12] LABS: Absolute Lymphocyte Count 0.55 X10^3/uL (0.83-4.51); Absolute Neutrophil Count 1.6 X10^3/uL (2.0-7.7); Basophil# 0.01 X10^3/uL; Basophil% 0.4 % (0-1); Eosinophil# 0.05 X10^3/uL; Eosinophils% 2.1 % (0-5); Hematocrit 32.5 % (37-47); Hemoglobin 10.6 g/dL (12.0-15.0); Lymphocyte # 0.55 X10^3/ul (0.83-4.51); Mean Corp Hgb Conc 32.6 g/dL (32-36); Mean Corpuscular Hgb 31.3 pg (27.0-32.0); Mean Corpuscular Volume 95.9 fL (81-99); Mean Platelet Vol. 9.4 fl (6.2-12.0); Monocyte# 0.14 X10^3/uL; Monocyte% 5.9 % (0-10); NRBC Flagged by Analyzer 0 % (0-5); Neutrophil # 1.63 X10^3/uL (2.7-7.7); Neutrophil % 68.2 % (47-70); POSITIVE COUNT YES; POSITIVE DIFFERENTIAL YES; RBC Distribution Width CV 14.3 % (11.6-14.6); RBC Distribution Width SD 49.8 fl (35.1-43.9); Red Blood Count 3.39 M/mm3 (4.2-5.4); White Blood Count 2.4 K/mm3 (4.4-11.0)
[2023-07-02 17:24] LABS: Anion Gap 6 (5-15); BUN 31 mg/dL (7-18); BUN/Creat Ratio 20.7 RATIO (10-20); Calcium,Total 9.1 mg/dL (8.5-10.1); Chloride 109 mmol/L (98-107); EST Glomerular Filtration Rate 35 mL/min (>60); Est Glom Filt Rate - Afr Amer 42 mL/min (>60); Glucose 331 mg/dL (74-106); Sodium Level 139 mmol/L (136-145)
[2023-07-02 17:40] LABS: Differential Indicated SCAN CRITERIA MET; Platelet Count 38 K/mm3 (150-450)
[2023-07-02 17:42] LABS: Differential Comment SEE COMMENTS; Platelet Estimate MKD DEC (ADEQ); Red Cell Morphology N CHROM NORMAL (NORM C&C)
[2023-07-02 17:43] LABS: Anisocytosis RARE; Macrocytosis RARE; Ovalocyte RARE
[2023-07-05 10:15] LABS: Pathologist Review Reviewed
== END 2023-07-02 18:08 | disposition home or self-care (01) ==
PROVIDERS: Emergency Provider Emergency Medicine; PCP Family Medicine; Visit Provider Emergency Medicine
DX: L03.211 Cellulitis of face (principal); F03.90 Unspecified dementia, unspecified severity, without behavioral disturbance, psychotic disturbance, mood disturbance, and anxiety; N18.9 Chronic kidney disease, unspecified
CPT/HCPCS: 80048; 85025; 99282; A4216

== ENCOUNTER → 2023-07-16 | Outpatient (REF) | payer MEDICARE, OTHER, SELFPAY ==
[2023-07-16 08:44] LABS: AST(SGOT) 21 U/L (15-37); Alanine Aminotransfer ALT/SGPT 23 U/L (13-56); Anion Gap 5 (5-15); BUN 36 mg/dL (7-18); BUN/Creat Ratio 26.9 RATIO (10-20); Calcium,Total 9.3 mg/dL (8.5-10.1); Chloride 114 mmol/L (98-107); Cholesterol 50 mg/dL (200); Creatinine, Serum 1.34 mg/dL (0.55-1.02); EST Glomerular Filtration Rate 40 mL/min (>60); Est Glom Filt Rate - Afr Amer 48 mL/min (>60); Glucose 130 mg/dL (74-106); High Density Lipoprotein 39 mg/dL; Potassium 4.1 mmol/L (3.5-5.1); Sodium Level 141 mmol/L (136-145); Thyroid Stim Hormone (TSH) 3.61 uIU/mL (0.358-3.74); Triglycerides 33 mg/dL; Very Low Density Lipoprotein 7 mg/dL (5-40)
[2023-07-16 10:45] LABS: Hemoglobin A1c 7.6 % (3.8-5.6)
== END ==
LOC: OLS.BROOKB 05:00
PROVIDERS: PCP Family Medicine; Visit Provider Family Medicine
DX: E11.9 Type 2 diabetes mellitus without complications (principal); I10 Essential (primary) hypertension; E78.5 Hyperlipidemia, unspecified; E03.9 Hypothyroidism, unspecified
CPT/HCPCS: 36415; 80048; 80061; 83036; 84443; 84450; 84460

== ENCOUNTER 2023-08-07 07:19 | Emergency (ER) | payer MEDICARE, OTHER, SELFPAY ==
[2023-08-07 07:20] VITALS: BP 185/67; PULSE 70; RESP 14; TEMP 36.4; O2SAT 99; BMI 22.8
--- NOTE | 2023-08-07 07:24 | RAD_ITS ---
INDICATION: PAIN, DECREASED MOVEMENT EXAMINATION/TECHNIQUE: X-RAY - XR Hip Unilateral with Pelvis when performed; 2-3 Views COMPARISON: Prior study dated: 03/19/2023 FINDINGS: PELVIC BONES: No displaced fracture, destructive or sclerotic lesions. Note that overlapping bowel shadows may however obscure fine detail. Sacroiliac joints are unremarkable. No widening of the pubic symphysis. HIPS: Status post left hip pinning. No displaced fracture seen in this frontal view. SOFT TISSUES: No soft tissue swelling or gas. RAD/HIP, UNI W/ Pelvis 2-3 Views IMPRESSION: No evidence of displaced pelvic or hip fracture. Electronically Signed: Dudley Puentes MD at 8:29 EDT ,
--- NOTE | 2023-08-07 07:38 | ED.VIS.LOWEX ---
HPI History of Present Illness HPI Narrative: Patient presents with pain in her left hip that began today. Patient is nonverbal and is a poor informant. Patient is only alert and oriented to person. Patient would not ambulate at the extended care facility today. Staff at the extended care facility did not witness any fall. Patient indicates she is having pain in her left hip. Chief Complaint: Lower Extremity Injury Informant: patient, family and SNF Onset/Context/Timing Onset: Today Context: Sudden Onset Timing: Continuous Location: Left hip Worsened by: Ambulation [facility] Medical History (Updated 08/07/23 @ 14:[address] Faheem Ochoa, DO) Open facial wound Non-healing surgical wound Open wound of left forearm Home Medications ?Medication ?Instructions ?Recorded ?Last Taken ?Type allopurinol 300 mg tablet 300 mg PO DAILY 06/13/16 Unknown History atorvastatin 40 mg tablet 40 mg PO DAILY 11/12/17 Unknown History colchicine 0.6 mg capsule 0.3 mg PO DAILY 11/12/17 Unknown History metoprolol tartrate 50 mg tablet 50 mg PO BID 11/12/17 Unknown History sertraline 50 mg tablet 50 mg PO QHS 11/12/17 Unknown History ascorbic acid (vitamin C) 500 mg 500 mg PO BID 03/19/23 Unknown History tablet (Vitamin C) cephalexin 250 mg capsule 250 mg PO DAILY 03/19/23 Unknown History cholecalciferol (vitamin D3) 125 5,000 unit PO DAILY 03/19/23 Unknown History mcg (5,000 unit) tablet (Vitamin D3) cholestyramine (with sugar) 4 gram 1 ea PO DAILY 03/19/23 Unknown History powder for susp in a packet ferrous sulfate 325 mg (65 mg 325 mg PO DAILY 03/19/23 Unknown History iron) tablet (Feosol) memantine 10 mg tablet 5 mg PO BID 03/19/23 Unknown History acetaminophen 650 mg 650 mg PO Q8H PRN fever or pain 04/08/23 Unknown History tablet,extended release loperamide 2 mg capsule 4 mg PO Q6H PRN loose stool 04/08/23 Unknown History (Anti-Diarrheal (loperamide)) Lactobacillus acidophilus 20 20,000 mmu cells PO DAILY 07/02/23 Unknown History billion cell capsule (Florajen Acidophilus) chlorthalidone 25 mg tablet 25 mg PO DAILY 07/02/23 Unknown History doxycycline hyclate 100 mg capsule 100 mg PO BID #14 caps 07/02/23 Unknown Rx fluconazole 150 mg tablet 150 mg PO DAILY PRN yeast 07/02/23 Unknown Rx infection 1 dose #1 TAB colchicine 0.6 mg tablet PO 08/07/23 Unknown History hydrocodone-acetaminophen 5-325mg 1 tab PO Q6H PRN PRN Pain 3 days 08/07/23 Unknown Rx 5mg-325mg #10 TABLETS insulin degludec 200 unit/mL (3 unit subcut 08/07/23 Unknown History mL) subcutaneous pen levothyroxine 50 mcg tablet 50 mcg PO DAILY 08/07/23 Unknown History memantine 5 mg tablet 5 mg PO BID 08/07/23 Unknown History Allergy/AdvReac Type Severity Reaction Status Date / Time amoxicillin (From Augmentin) Allergy Severe Hives Verified 08/07/23 07:26 clavulanic acid (From Allergy Severe Hives Verified 08/07/23 07:26 Augmentin) sulfamethoxazole (From AdvReac Nausea Verified 08/07/23 07:26 Bactrim) trimethoprim (From Bactrim) AdvReac Nausea Verified 08/07/23 07:26 Surgical History (Updated 08/07/23 @ 09:[address] Faheem Ochoa DO) S/P ORIF (open reduction internal fixation) fracture Social History Smoking Status: Never smoker ROS ROS ED Review of Systems ROS Unobtainable: due to mental condition EXAM Physical Exam Const Vital Signs: 08/07/23 07:20 08/07/23 11:20 Temperature 97.6 F L 98.2 F Temperature Source Temporal Oral Pulse Rate 70 76 Respiratory Rate 14 15 Blood Pressure 185/67 H 129/73 H Blood Pressure Mean 106 91 Pulse Ox 99 97 Oxygen Delivery Method Room Air Room Air Positive well nourished and well developed General Appearance ED: well developed and NAD HEENT Reports moist mucous membranes Neck full ROM and supple Extremity Extremity Narrative: There is tenderness to palpation over the left hip. There is no gross deformity noted. Range of motion was limited in all motions of the left hip secondary to pain. Pedal pulses are equal bilaterally. There are no apparent sensory deficits noted. Patient was unable to cooperate with strength testing. Neuro CN's II-XII intact bilaterally and no sensory deficits noted Sensorium / Orientation: alert and oriented to person MDM MDM MDM Narrative Medical decision making narrative: Differential diagnosis includes hip fracture, contusion, and arthritis. X-rays of the left hip will be obtained to assess for fracture. Lab Data Attestation: I reviewed the patient's lab results. Lab results narrative: Urinalysis was reviewed. Occult blood was 250 with greater than 100 red blood cells seen. There is no evidence of urinary tract infection. CBC was reviewed. Platelets were low at 45. These are consistent with previous results. White blood cell count was also slightly low at 3.3. There is also mild anemia with a hemoglobin of 11.3 and hematocrit 34.0. These are all consistent with previous results. Basic metabolic profile was reviewed. BUN was slightly elevated at 31 and creatinine was slightly elevated at 1.44. These are consistent with previous results. Labs: Laboratory Results - last 24 hr 08/07/23 08/07/23 11:15 12:35 WBC 3.3 L RBC 3.57 L Hgb 11.3 L Hct 34.0 L MCV 95.2 MCH 31.7 MCHC 33.2 RDW Std Deviation 48.9 H RDW Coeff of Beatrice 14.2 Plt Count 45 L* MPV 11.0 Immature Gran % (Auto) 0.300 Neut % (Auto) 72.3 H Lymph % (Auto) 19.5 [place] % (Auto) 5.8 Eos % (Auto) 1.8 Baso % (Auto) 0.3 Absolute Neuts (auto) 2.4 Absolute Lymphs (auto) 0.64 L Nucleated RBC % 0 Diff Path Review May foll Platelet Estimate MKD DEC Sodium 140 Potassium 4.1 Chloride 111 H Carbon Dioxide 25.0 Anion Gap 4 L BUN 31 H Creatinine 1.44 H Estim Creat Clear Calc 22.59 Est GFR (MDRD) Af Amer 44 L Est GFR (MDRD) Non-Af 37 L BUN/Creatinine Ratio 21.5 H Glucose 144 H Calcium 9.9 Urine Color SEE COMMENT BELOW Urine Clarity Cloudy Urine pH 6.0 Ur Specific [place] 1.010 Urine Protein 100 H Urine Glucose (UA) Normal Urine Ketones Negative Urine Occult Blood 250 H Urine Nitrite Negative Urine Bilirubin Negative Urine Urobilinogen Normal Ur Leukocyte Esterase 25 H Urine RBC > 100 SEEN Urine WBC 0-5 SEEN Ur Squamous Epith Cells 0 SEEN Urine Bacteria 0 SEEN Urine Mucus 0 SEEN Radiography Diagnostic Testing: Clinical Impression(s) from Imaging Studies Hip/Pelvis X-Ray 08/07/23 07:24 IMPRESSION: No evidence of displaced pelvic or hip fracture. Electronically Signed: Dudley Puentes MD at 8:29 EDT , Abdomen/Pelvis CT 08/07/23 12:17 IMPRESSION: 1. Mild lobulation of the liver contour which may reflect cirrhosis. 2. Splenomegaly, varices and mild ascites which may reflect portal venous hypertension. 3. No evidence of urinary tract stones or hydronephrosis. 4. Diverticulosis without evidence of acute diverticulitis. Electronically Signed: Dudley Puentes MD at 14:47 EDT , X-rays of the left hip were obtained. There are 3 views. On my independent interpretation, there is no acute fracture. There are some degenerative changes noted in the hips bilaterally. Radiologist also interpreted the x-rays and agrees. CT scan of the abdomen and pelvis was obtained. There is no evidence of ureteral calculus or hydronephrosis. There is diverticulosis with no evidence of diverticulitis. There is lobulation of the liver and mild ascites which may reflect cirrhosis. This was interpreted by the radiologist and was also independently reviewed by myself. Treatment and Re-Evaluation Narrative: Patient was given a dose of [place] here. Patient was feeling better after this. Patient was able to ambulate here in the emergency department. Because of the hematuria, CT scan of the flank will be obtained along with a CBC and basic metabolic profile. Patient and family were advised of the findings. Patient was given a prescription for a short course of [place]. Patient and family were instructed to follow-up with her primary care physician in 5 to 7 days. Patient and family were instructed to return if worse in any way patient and family understood and were agreeable with the plan. All questions were answered. Discharge Plan Triage Chief Complaint: Lower Extremity Injury ED Provider: Faheem Ochoa Dx/Rx/DC Orders Clinical Impression: Contusion of hip, left, Hematuria, Pancytopenia Instructions: ED Hip Contusion Prescriptions: New hydrocodone-acetaminophen 5-325 mg tablet 1 tab PO Q6H PRN PRN (Reason: Pain) 3 Days Qty: 10 0RF No Action allopurinol 300 MG tablet 300 mg PO DAILY atorvastatin 40 MG tablet 40 mg PO DAILY metoprolol tartrate 50 MG tablet 50 mg PO BID sertraline 50 MG tablet 50 mg PO QHS colchicine 0.6 MG tablet 0.3 mg PO DAILY memantine 10 mg tablet 5 mg PO BID cephalexin 250 mg capsule 250 mg PO DAILY cholestyramine (with sugar) 4 gram powder in packet 1 ea PO DAILY ferrous sulfate [Feosol] 325 mg (65 mg iron) tablet 325 mg PO DAILY ascorbic acid (vitamin C) [Vitamin C] 500 mg tablet 500 mg PO BID cholecalciferol (vitamin D3) [Vitamin D3] 125 mcg (5,000 unit) tablet 5,000 unit PO DAILY acetaminophen 650 mg tablet extended release 650 mg PO Q8H PRN (Reason: fever or pain) loperamide [Anti-Diarrheal (loperamide)] 2 mg capsule 4 mg PO Q6H PRN (Reason: loose stool) Patient Comments: AFTER EACH LOOSE STOOL. MAX DOSE 8 CAPSULES DAILY levothyroxine 50 mcg tablet 50 mcg PO DAILY colchicine 0.6 mg tablet PO memantine 5 mg tablet 5 mg PO BID insulin degludec 200 unit/mL (3 mL) insulin pen subcut chlorthalidone 25 mg tablet 25 mg PO DAILY Florajen Acidophilus 20 billion cell capsule 20,000 mmu cells PO DAILY doxycycline hyclate 100 mg capsule 100 mg PO BID Qty: 14 0RF fluconazole 150 mg tablet 150 mg PO DAILY PRN (Reason: yeast infection) Qty: 1 0RF Rx Instructions: administer on day 1 of therapy Primary Care Provider: Sneha Mabry Referrals: Sneha Mabry MD [Primary Care Provider] - 3-5 Days Print Language: Algerian Disposition Disposition: Home, Self Care
[2023-08-07] MEDS: HYDROcodone Bitartrate/Apap 5/325 Tablet PO (08:27)
[2023-08-07 11:20] VITALS: BP 129/73; PULSE 76; RESP 15; TEMP 36.8; O2SAT 97
[2023-08-07 11:24] LABS: Bacteria 0 SEEN /hpf (None Seen); Mucous, Urine 0 SEEN /hpf (<or=2+); Squamous Epithelial Cells - UA 0 SEEN /hpf (5-10)
[2023-08-07 11:26] LABS: Glucose, Dipstick Normal (Normal); Ketone-Dipstick Negative (Negative); Leukocyte Esterase-Dipstick 25 /ul (Negative); Nitrite-Dipstick Negative (Negative); Occult Blood-Urine 250 /ul (Negative); Protein-Dipstick 100 mg/dl (Negative); Urine Bilirubin Dipstick Negative (Negative); Urine Clarity Cloudy (Clear); Urine Urobilinogen Normal (Normal)
[2023-08-07 11:31] LABS: Color, Urine SEE COMMENT BELOW (Yellow)
[2023-08-07 11:32] LABS: Red Blood Cells-Urine > 100 SEEN /hpf (0-5); White Blood Cells 0-5 SEEN /hpf (0-5)
--- NOTE | 2023-08-07 12:17 | CT_ITS ---
INDICATION: Hematuria EXAMINATION: CT ABDOMEN AND PELVIS WITHOUT CONTRAST TECHNIQUE: Helically acquired images were obtained of the abdomen and pelvis without oral or IV contrast. The protocol utilizes one or more of the following dose reduction techniques: automated exposure control, adjustment of mA and/or kV according to patient size,and/or use of iterative reconstruction technique. IV Contrast dosage and agent: None. Oral contrast: None. RADIATION DOSAGE (If Supplied By Facility): CTDIvol = ( 8.94 ) mGy, DLP = ( 413.07 ) mGycm COMPARISON: No relevant prior comparison study available FINDINGS: LOWER CHEST: Mild atelectatic changes or scarring in the lower lungs. Calcified granulomata. No cardiomegaly or pericardial effusion. LIVER: The dome of the liver is not entirely included on this exam. Mild lobulation of the liver contour. No focal lesion is seen without contrast. GALLBLADDER AND BILIARY TREE: The gallbladder is not visualized which may be contracted or surgically removed. No intra- or extrahepatic biliary ductal dilation. PANCREAS: No focal cystic or solid mass. SPLEEN: Splenomegaly. The spleen measures about 17 cm in length. Collateral veins and varices are seen in the splenic hilum. ADRENAL GLANDS: No nodules. KIDNEYS AND URETERS: Normal renal size and position. No hydronephrosis. PERITONEUM: Small amount of fluid anterior to the liver. No other fluid collection. BOWEL: Small hiatal hernia. Normal in caliber small bowel loops. Diverticulosis without evidence of acute diverticulitis. Fecal retention. The appendix is not definitely identified. LYMPH NODES: No enlarged mesenteric or retroperitoneal lymph nodes. VESSELS: Aorta is non-dilated. URINARY BLADDER: Unremarkable. REPRODUCTIVE ORGANS: Absent uterus consistent with previous hysterectomy. ABDOMINAL WALL: No discrete abdominal or pelvic wall hernia. BONES: Demineralization of the osseous structures. Mild retrolisthesis of L2 over L3 and anterolisthesis of L4 with respect to L3 and L5. Left hip pinning. CT/Abdomen/Pelvis without Cont IMPRESSION: 1. Mild lobulation of the liver contour which may reflect cirrhosis. 2. Splenomegaly, varices and mild ascites which may reflect portal venous hypertension. 3. No evidence of urinary tract stones or hydronephrosis. 4. Diverticulosis without evidence of acute diverticulitis. Electronically Signed: Dudley Puentes MD at 14:47 EDT ,
[2023-08-07 12:47] LABS: Absolute Lymphocyte Count 0.64 X10^3/uL (0.83-4.51); Absolute Neutrophil Count 2.4 X10^3/uL (2.0-7.7); Basophil# 0.01 X10^3/uL; Basophil% 0.3 % (0-1); Eosinophil# 0.06 X10^3/uL; Eosinophils% 1.8 % (0-5); Hemoglobin 11.3 g/dL (12.0-15.0); Lymphocyte # 0.64 X10^3/ul (0.83-4.51); Lymphocyte % 19.5 % (19-41); Mean Corp Hgb Conc 33.2 g/dL (32-36); Mean Corpuscular Hgb 31.7 pg (27.0-32.0); Mean Corpuscular Volume 95.2 fL (81-99); Monocyte# 0.19 X10^3/uL; Monocyte% 5.8 % (0-10); NRBC Flagged by Analyzer 0 % (0-5); Neutrophil # 2.38 X10^3/uL (2.7-7.7); Neutrophil % 72.3 % (47-70); POSITIVE COUNT YES; Platelet Count 45 K/mm3 (150-450); RBC Distribution Width CV 14.2 % (11.6-14.6); RBC Distribution Width SD 48.9 fl (35.1-43.9); Red Blood Count 3.57 M/mm3 (4.2-5.4); White Blood Count 3.3 K/mm3 (4.4-11.0)
[2023-08-07 12:48] LABS: Differential Indicated SCAN CRITERIA MET
[2023-08-07 13:03] LABS: Anion Gap 4 (5-15); BUN 31 mg/dL (7-18); BUN/Creat Ratio 21.5 RATIO (10-20); Calcium,Total 9.9 mg/dL (8.5-10.1); Chloride 111 mmol/L (98-107); Creatinine, Serum 1.44 mg/dL (0.55-1.02); EST Glomerular Filtration Rate 37 mL/min (>60); Est Glom Filt Rate - Afr Amer 44 mL/min (>60); Estimated Creatinine Clearance 22.59 ml/min; Glucose 144 mg/dL (74-106); Potassium 4.1 mmol/L (3.5-5.1); Sodium Level 140 mmol/L (136-145)
[2023-08-07 13:25] LABS: Platelet Estimate MKD DEC (ADEQ)
[2023-08-07 15:00] VITALS: BP 145/60; PULSE 56; RESP 16; O2SAT 98
[2023-08-07 15:09] VITALS: BP 145/60; PULSE 56; RESP 16; TEMP 36.6; O2SAT 98
[2023-08-09 13:58] LABS: Pathologist Review Reviewed
== END 2023-08-07 15:17 | disposition home or self-care (01) ==
PROVIDERS: Emergency Provider Emergency Medicine; PCP Family Medicine; Visit Provider Emergency Medicine
DX: S70.02XA Contusion of left hip, initial encounter (principal); D61.818 Other pancytopenia; R31.9 Hematuria, unspecified; X58.XXXA Exposure to other specified factors, initial encounter; Y92.89 Other specified places as the place of occurrence of the external cause
CPT/HCPCS: 73502; 74176; 80048; 81001; 85025; 99283; A4216

== ENCOUNTER → 2023-09-06 | Outpatient (REF) | payer MEDICARE, OTHER, SELFPAY ==
[2023-09-06 10:25] LABS: Anion Gap 6 (5-15); BUN 38 mg/dL (7-18); BUN/Creat Ratio 25.2 RATIO (10-20); Calcium,Total 9.2 mg/dL (8.5-10.1); Chloride 111 mmol/L (98-107); Creatinine, Serum 1.51 mg/dL (0.55-1.02); EST Glomerular Filtration Rate 35 mL/min (>60); Est Glom Filt Rate - Afr Amer 42 mL/min (>60); Glucose 109 mg/dL (74-106); Potassium 4.6 mmol/L (3.5-5.1); Sodium Level 137 mmol/L (136-145)
[2023-09-06 12:31] LABS: Hemoglobin A1c 7.1 % (3.8-5.6)
== END ==
LOC: OLS.BROOKB 05:00
PROVIDERS: PCP Family Medicine; Visit Provider Family Medicine
DX: E11.9 Type 2 diabetes mellitus without complications (principal); I10 Essential (primary) hypertension; E78.5 Hyperlipidemia, unspecified
CPT/HCPCS: 36415; 80048; 83036

== ENCOUNTER 2023-09-16 10:32 | Outpatient (RCR) | payer MEDICARE, OTHER, SELFPAY ==
[2023-06-30 00:48] VITALS: BP 154/47; PULSE 63; RESP 18; TEMP 36.2; BMI 21.6
[2023-09-16 10:39] VITALS: BP 146/38; PULSE 59; RESP 18; TEMP 35.3; BMI 21.2
--- NOTE | 2023-09-16 13:32 | HP.PCM_ITS ---
History of Present Illness Date of Service: 09/16/23 Chief Complaint: Facial ulcers History of Wound: Ms Penaloza is an 88-year-old well-known to me. Discharged from this facility about 3 to 4 months ago following healing. History of recurrent facial wounds from falls. Also history of nonhealing surgical wound. History of skin cancer status post Mohs procedures. Overall, her daughter states that she has had about 20 procedures on her face/skin due to cancer. She states that since discharge, she has had recurrent openings to prior healed areas on the left side of her face. New area of concern on the right not from a fall. Has not been reevaluated by dermatology. Dressing changes have been attempted at her facility however, due to nonhealing/reopening, she was referred back to the wound center. No recent falls. Appetite is said to be good. History was given by her daughter. [facility] Medical History (Updated 09/16/23 @ 13:[address] 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 Open facial wound Non-healing surgical wound Open wound of left forearm Home Medications ?Medication ?Instructions ?Recorded ?Last Taken ?Type allopurinol 300 mg tablet 300 mg PO DAILY 06/13/16 Unknown History atorvastatin 40 mg tablet 40 mg PO DAILY 11/12/17 Unknown History colchicine 0.6 mg capsule 0.3 mg PO DAILY 11/12/17 Unknown History metoprolol tartrate 50 mg tablet 50 mg PO BID 11/12/17 Unknown History sertraline 50 mg tablet 50 mg PO QHS 11/12/17 Unknown History ascorbic acid (vitamin C) 500 mg 500 mg PO BID 03/19/23 Unknown History tablet (Vitamin C) cephalexin 250 mg capsule 250 mg PO DAILY 03/19/23 Unknown History cholecalciferol (vitamin D3) 125 5,000 unit PO DAILY 03/19/23 Unknown History mcg (5,000 unit) tablet (Vitamin D3) cholestyramine (with sugar) 4 gram 1 ea PO DAILY 03/19/23 Unknown History powder for susp in a packet ferrous sulfate 325 mg (65 mg 325 mg PO DAILY 03/19/23 Unknown History iron) tablet (Feosol) memantine 10 mg tablet 5 mg PO BID 03/19/23 Unknown History acetaminophen 650 mg 650 mg PO Q8H PRN fever or pain 04/08/23 Unknown History tablet,extended release loperamide 2 mg capsule 4 mg PO Q6H PRN loose stool 04/08/23 Unknown History (Anti-Diarrheal (loperamide)) Lactobacillus acidophilus 20 20,000 mmu cells PO DAILY 07/02/23 Unknown History billion cell capsule (Florajen Acidophilus) chlorthalidone 25 mg tablet 25 mg PO DAILY 07/02/23 Unknown History doxycycline hyclate 100 mg capsule 100 mg PO BID #14 caps 07/02/23 Unknown Rx fluconazole 150 mg tablet 150 mg PO DAILY PRN yeast 07/02/23 Unknown Rx infection 1 dose #1 TAB colchicine 0.6 mg tablet PO 08/07/23 Unknown History hydrocodone-acetaminophen 5-325mg 1 tab PO Q6H PRN PRN Pain 3 days 08/07/23 Unknown Rx 5mg-325mg #10 TABLETS insulin degludec 200 unit/mL (3 unit subcut 08/07/23 Unknown History mL) subcutaneous pen levothyroxine 50 mcg tablet 50 mcg PO DAILY 08/07/23 Unknown History memantine 5 mg tablet 5 mg PO BID 08/07/23 Unknown History Allergy/AdvReac Type Severity Reaction Status Date / Time amoxicillin (From Augmentin) Allergy Severe Hives Verified 08/07/23 07:26 clavulanic acid (From Allergy Severe Hives Verified 08/07/23 07:26 Augmentin) sulfamethoxazole (From AdvReac Nausea Verified 08/07/23 07:26 Bactrim) trimethoprim (From Bactrim) AdvReac Nausea Verified 08/07/23 07:26 Surgical History (Updated 08/07/23 @ 09:[address] Faheem Ochoa DO) S/P ORIF (open reduction internal fixation) fracture Social History Smoking Status: Never smoker ROS Constitutional Constitutional: Reports frequent falls and weakness; Denies excessive sweating, fever(s), headache(s) or increased appetite Eyes Eyes: Denies change in eye color, decreased night vision, discharge from eye(s), discongugate gaze, erythema, loss of central vision or loss of peripheral vision ENT HEENT: Denies dysphagia, ear discharge, epistaxis, foreign body in nose, halitosis, hoarseness or lip swelling Cardiovascular Cardiovascular: Reports edema; Denies cold extremities, cyanosis, diaphoresis, dizziness, dyspnea at rest or erythema on extremities Respiratory/Chest Respiratory/Chest: Denies dry cough, dyspnea on exertion, excessive phlegm pro duction, hemoptysis, hoarseness, inability to speak or nail bed cyanosis Gastrointestinal Gastrointestinal: Reports anorexia; Denies belching, bloating, chewing difficulty, coffee ground emesis or dry heaves Genitourinary Genitourinary: Denies abdominal discomfort, contractions, flank pain, genital pa in or itching Musculoskeletal Musculoskeletal: Reports extremity pain; Denies joint swelling, neck pain or tremors Integumentary Integumentary: Reports dry skin; Denies bleeding lesions, erythema, hirsutism, jaundice or lesions Neurologic Neurologic: Reports frequent falls; Denies abnormal speech, behavior changes, burning sensations, confusion, disequilibrium or loss of vision Psychiatric Psychiatric: Reports change in appetite; Denies auditory hallucinations, behavioral changes, confusion, hallucinations or irritability Endocrine Endocrinology: Denies deepening of the voice, excessive sweating, fatigue, heat intolerance, increase in ring/shoe/hat size or palpitations Hematologic/Lymphatic Hematologic/Lymphatic: Denies anemia or easy bruising Allergic/Immunologic Allergic/Immunologic: Denies itchy eyes, lip swelling, throat swelling, tongue swelling, hives, eczemia or wheezing Vital Signs Vital Signs Vital Signs: 09/16/23 10:39 Temperature 95.6 F L Temperature Source Temporal Pulse Rate 59 L Respiratory Rate 18 Blood Pressure 146/38 H Blood Pressure Mean 74 Blood Pressure Source Monitor Blood Pressure Position Semi-Fowlers Blood Pressure Location Left Arm Oxygen Delivery Method Room Air Weight Weight: 116 lb Body Mass Index (BMI) 21.2 Physical Exam Const alert and no apparent distress General Appearance: cooperative, well kempt and well developed HEENT normocephalic and hearing grossly normal bilaterally Eyes EOMs intact bilaterally Neck full ROM General: normal visual inspection Resp normal respiratory effort and normal air movement Effort and Inspection: able to speak in complete sentences Cardio regular rate and regular rhythm GI soft to palpation and non-tender Extremity General Extremity: edema Skin Wounds: wounds noted bed shiny, beefy red and pink, margins, no odor and open Neuro CN's II-XII intact bilaterally and moves all extremities Psych mental status grossly normal, thought process normal, cooperative and affect normal Debridement Note Debridement Note Wound debrided: Left-sided face (inferior) Type of Debridement: Excisional debridement Anesthesia Used: 4% Lidocaine Solution Depth: Down to and including healthy tissue and in the subcutaneous layer Percentage of wound debrided: 100 Instrument Used: 5mm curette Tissue Removed: Devitalized tissue Severity: Fat Layer Exposed Amount of bleeding with debridement: Mild Bleeding Controlled with: Pressure Patient tolerated procedure: Patient tolerated procedure well Post-Debridement Measurements and Additional Note: Post-Debridement Measurements/Treatment - Nurse 1 - General Ulcer Assessment Start: 09/16/23 10:37 Freq: Status: Active Protocol: JESÚS Activity Type Activity Date Activity User E-sign Co-sign Detail Recorded Client Recorded Date Recorded By Document 09/16/23 10:39 KW f 09/16/23 10:49 KW 09/16/23 10:39 WC - Today's Visit Information Type of service Initial Visit Arrival Mode Ambulatory, Walker Accompanied by daughter Patient Identification Verified (Name & Yes ) Height and Weight Height 5 ft 2 in Weight 116 lb Weight in Pounds 116.0 lbs Weight Measurement Method Estimated by Patient Body Mass Index (BMI) 21.2 BMI Classification Normal BSA - Adonis 1.52 Vital Signs Temperature (97.8 F-99.1 F) 95.6 F L Temperature Source Temporal Pulse Rate (60-100) 59 L Pulse Location Monitor Respiratory Rate (12-18) 18 Respiratory rate source Observation Oxygen Delivery Method Room Air Blood Pressure (90/60-120/80) 146/38 H Blood Pressure Mean 74 Source Monitor Position Semi-Fowlers Blood Pressure Location Left Arm History Since Last Visit- (Skip if this is Patient's initial visit) Left Footwear Regular Shoe Right Footwear Regular Shoe Pain Scale: 0-10 Numeric Is Patient Pain Free? Yes - Nurse 1 - General Ulcer Measurement Start: 09/16/23 10:37 Freq: Status: Active Protocol: Activity Type Activity Date Activity User E-sign Co-sign Detail Recorded Client Recorded Date Recorded By Document 09/16/23 10:39 KW f 09/16/23 10:49 KW 09/16/23 10:39 Wound Center Nurse 1 #7 RT PRESYBETERIAN -Current Size (cm) - Length 1.1 -Current Size (cm) - Width 1.9 -Current Size (cm) - Depth 0.1 -Total Square Cm 2.09 -Date of Last Picture (Recall this 09/16/23 field) -Texture (Dede-wound Skin Appearance) Assessed -Moisture (Dede-wound Skin Appearance) Assessed -Color (Dede-wound Skin Appearance) Assessed -Temperature (Dede-wound Skin No Abnormality Appearance) (Pt Warm) -Tenderness on Palpation (Dede-wound No Skin Appearance) -Ulcer Cleansing Rinsed/ Irrigated with Saline -Anesthetic Used 5% Lidocaine Gel -Wound Comment(s) SCABBED #6 LT JAW -Current Size (cm) - Length 1.5 -Current Size (cm) - Width 1.7 -Current Size (cm) - Depth 0.1 -Total Square Cm 2.55 -Date of Last Picture (Recall this 09/16/23 field) -Texture (Dede-wound Skin Appearance) Assessed -Moisture (Dede-wound Skin Appearance) Assessed -Color (Dede-wound Skin Appearance) Assessed -Tenderness on Palpation (Dede-wound No Skin Appearance) -Ulcer Cleansing Rinsed/ Irrigated with Saline -Foul Odor after Cleansing No -Anesthetic Used 5% Lidocaine Gel -Wound Comment(s) SCABBED #5 LT PRESYBETERIAN -Current Size (cm) - Length 1 -Current Size (cm) - Width 0.3 -Current Size (cm) - Depth 0.1 -Total Square Cm 0.3 -Date of Last Picture (Recall this 09/16/23 field) -Texture (Dede-wound Skin Appearance) Assessed -Moisture (Dede-wound Skin Appearance) Assessed -Color (Dede-wound Skin Appearance) Assessed -Temperature (Dede-wound Skin No Abnormality Appearance) (Pt Warm) -Tenderness on Palpation (Dede-wound No Skin Appearance) -Ulcer Cleansing Rinsed/ Irrigated with Saline -Anesthetic Used 5% Lidocaine Gel -Wound Comment(s) SCABBED - Nurse 2 - General Ulcer CM Notes Start: 09/16/23 10:37 Freq: Status: Active Protocol: Activity Type Activity Date Activity User E-sign Co-sign Detail Recorded Client Recorded Date Recorded By Document 09/16/23 11:22 [facility] 09/16/23 11:31 09/16/23 11:22 Wound Center Nurse 2 #7 RT PRESYBETERIAN -Time 11:27 -Correct Patient Yes -Correct Side, Site, Position Yes -Wound/Ulcer Outcome Not Healed #6 LT JAW -Time 11:23 -Correct Patient Yes -Correct Side, Site, Position Yes -Correct Procedure Yes -Procedure Performed Yes -Type of Procedure Debridement -Clinical Debridement Subcutaneous -Tissue Removed Subcutaneous -Post Debridement (cm) - Length 2.0 -Post Debridement (cm) - Width 1.8 -Post Debridement (cm) - Depth 0.1 -Total Square (Post) (cm) 3.60 -Area of Debridement (cm) - Length 2.0 -Area of Debridement (cm) - Width 1.8 -Total Square (Area) (cm) 3.60 -Tunneling No -Undermining/Tunneling No -Wound/Ulcer Outcome Not Healed -Ulcer Cleansing Rinsed/ Irrigated with Saline -Foul Odor after Cleansing No -Bioengineered Tissue No -Bleeding Controlled with Pressure -Treatment Response Procedure Tolerated Well -Debridement - Subq, 1st 20sq cm Yes #5 LT PRESYBETERIAN -Time 11:24 -Correct Patient Yes -Correct Side, Site, Position Yes -Wound/Ulcer Outcome Not Healed Pain Scale: 0-10 Numeric Is Patient Pain Free? Yes - Nurse 3 - General Ulcer D/C NN Start: 09/16/23 10:37 Freq: Status: Active Protocol: Activity Type Activity Date Activity User E-sign Co-sign Detail Recorded Client Recorded Date Recorded By Document 09/16/23 11:48 [facility] [email or web address] 09/16/23 11:50 [facility] 09/16/23 11:48 Wound Care Center Nurse 3 #7 RT PRESYBETERIAN -Ulcer Cleansing Rinsed/ Irrigated with Saline -Foul Odor after Cleansing No -Other Dressing quotation clerk. facility to apply vaseline daily #6 LT JAW -Ulcer Cleansing Rinsed/ Irrigated with Saline -Foul Odor after Cleansing No -Primary Dressing Applied Aquacel Extra, NonAdherent Contact Layer -Primary Dressing Covered/Secured with Dry Gauze, Secured with Tape -Aquacel Extra 2 #5 LT PRESYBETERIAN -Ulcer Cleansing Rinsed/ Irrigated with Saline -Foul Odor after Cleansing No -Primary Dressing Applied Aquacel Extra, NonAdherent Contact Layer -Primary Dressing Covered/Secured with Dry Gauze, Secured with Tape -Aquacel Extra 0 Treatment Response Procedure Tolerated Well Pain Scale: 0-10 Numeric Is Patient Pain Free? 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 Some discomfort. As above, her daughter gives a history of recurrent opening especially of the left-sided inferior and superior areas. Healing and scabbing reported. Use of Adaptic was stopped sooner than recommended by the facility. Concern for possible underlying carcinoma due to her significant history of. Recommend evaluation by dermatology. Daughter states that she does not believe her mother will tolerate further procedures but we will have her see dermatology. Right sided facial concern with scabbing and no open area. Vaseline/aquaphor, Adaptic and gauze. To the left, Aquacel extra, cover with Adaptic and gauze. Continue adequate moisturizing, increase protein intake and other chronic wound care management. Daughter voiced understanding. Follow-up in 2 weeks or sooner if needed. Their questions were answered and they are advised to let us know if they have any further questions or concerns. This note was generated with [employer] dictation software. It may contain incorrect words, spelling, and punctuation that were not noted in checking the note before signing.
--- NOTE | 2023-09-30 11:20 | WC ---
PHOTO 09/16/23 LEFT ISLAM
--- NOTE | 2023-09-30 11:21 | WC ---
PHOTO LEFT YARSANISM/LEFT JAW 09/16/23
--- NOTE | 2023-09-30 11:22 | WC ---
PHOTO RIGHT JEWISH 09/15/23
== END 2023-09-29 23:59 | disposition home or self-care (01) ==
LOC: WC 10:32
PROVIDERS: PCP Family Medicine; Referring Provider Family Medicine; Visit Provider Internal Medicine
DX: L98.492 Non-pressure chronic ulcer of skin of other sites with fat layer exposed (principal); R53.81 Other malaise; Z85.828 Personal history of other malignant neoplasm of skin
CPT/HCPCS: 11042; 99213; G0463

== ENCOUNTER 2023-09-30 11:09 | Outpatient (RCR) | payer MEDICARE, OTHER, SELFPAY ==
[2023-09-30 00:06] VITALS: BP 154/47; PULSE 63; RESP 18; TEMP 36.2; BMI 21.6
[2023-09-30 10:58] VITALS: BP 170/69; PULSE 61; RESP 18; TEMP 35.7; BMI 21.6
--- NOTE | 2023-09-30 13:35 | PN.PCM_ITS ---
History of Present Illness Date of Service: 09/30/23 Chief Complaint: Facial ulcers History of Wound: Ms Penaloza is an 88-year-old well-known to me. Discharged from this facility about 3 to 4 months ago following healing. History of recurrent facial wounds from falls. Also history of nonhealing surgical wound. History of skin cancer status post Mohs procedures. Overall, her daughter states that she has had about 20 procedures on her face/skin due to cancer. She states that since discharge, she has had recurrent openings to prior healed areas on the left side of her face. New area of concern on the right not from a fall. Has not been reevaluated by dermatology. Dressing changes have been attempted at her facility however, due to nonhealing/reopening, she was referred back to the wound center. No recent falls. Appetite is said to be good. History was given by her daughter. Progress of Wound: No new concerns reported at this time. Good improvement since her last visit. Restorationism areas have improved/resolved and left-sided inferior ulcer also with significant improvement. Yet to schedule with dermatology. Objective Data Objective Data Vital Signs: Vital Signs Temp Pulse Resp BP 96.3 F L 61 18 170/69 H 09/30/23 10:58 09/30/23 10:58 09/30/23 10:58 09/30/23 10:58 Weight: 122 lb Body Mass Index (BMI) 21.6 Charges/Coding Procedures Integumentary [id number]: [id number] L[place] subq tissue 20 sq cm/< Physical Exam Const alert and no apparent distress General Appearance: cooperative, well kempt and well developed HEENT normocephalic and hearing grossly normal bilaterally Eyes EOMs intact bilaterally Neck full ROM General: normal visual inspection Resp normal air movement Effort and Inspection: able to speak in complete sentences Extremity General Extremity: edema Skin Wounds: wounds noted bed granulating well, margins well defined, no odor and open Neuro CN's II-XII intact bilaterally and moves all extremities Psych mental status grossly normal, thought process normal, cooperative and affect normal Debridement Note Debridement Note Wound debrided: Left-sided face (inferior) Type of Debridement: Excisional debridement Anesthesia Used: 4% Lidocaine Solution Depth: Down to and including healthy tissue and in the subcutaneous layer Percentage of wound debrided: 100 Severity: Fat Layer Exposed Amount of bleeding with debridement: Mild Bleeding Controlled with: Pressure Patient tolerated procedure: Patient tolerated procedure well Post-Debridement Measurements and Additional Note: Post-Debridement Measurements/Treatment WC - Nurse 1 - General Ulcer Assessment Start: 09/30/23 10:57 Freq: Status: Active Protocol: JESÚS Activity Type Activity Date Activity User E-sign Co-sign Detail Recorded Client Recorded Date Recorded By Document 09/30/23 10:58 JF 000 09/30/23 11:13 JF 09/30/23 10:58 WC - Today's Visit Information Type of service Follow-up Visit (Physician/[employer] ) Arrival Mode Ambulatory, Walker Accompanied by DAUGHTER Patient Identification Verified (Name & Yes ) Patient Requires Transmission-Based No Precautions Height and Weight Body Mass Index (BMI) 21.6 BMI Classification Normal Vital Signs Temperature (97.8 F-99.1 F) 96.3 F L Temperature Source Temporal Pulse Rate (60-100) 61 Pulse Location Monitor Respiratory Rate (12-18) 18 Respiratory rate source Observation Blood Pressure (90/60-120/80) 170/69 H Blood Pressure Mean (mm Hg) 102 Source Monitor Position Semi-Fowlers Blood Pressure Location Right Arm History Since Last Visit- (Skip if this is Patient's initial visit) Have you changed medications since your No last visit? Any new allergies or adverse reactions No Had a fall/change in ADL's that may No increase risk of falls Signs or symptoms of abuse and/or No neglect since last visit Have you been in the hospital since your No last visit? Has dressing in place as prescribed Yes Has compression in place as prescribed N/A Has offloadiing in place as prescribed N/A Experienced any changes in pain level or No management Left Footwear Regular Shoe Right Footwear Regular Shoe Pain Scale: 0-10 Numeric Is Patient Pain Free? Yes YEHUDA - Nurse 1 - General Ulcer Measurement Start: 09/30/23 10:57 Freq: Status: Active Protocol: Activity Type Activity Date Activity User E-sign Co-sign Detail Recorded Client Recorded Date Recorded By Document 09/30/23 10:58 JF 000 09/30/23 11:13 JF 09/30/23 10:58 Wound Center Nurse 1 #7 RT PENTECOSTALISM -Combined with other wound No -Current Size (cm) - Length 0.1 -Current Size (cm) - Width 0.1 -Current Size (cm) - Depth 0.1 -Total Square Cm 0.01 -Photo Taken No -Undermining/Tunneling No -Circular Undermining No -Exudate Amt None Present #6 LT JAW -Combined with other wound No -Current Size (cm) - Length 0.5 -Current Size (cm) - Width 0.5 -Current Size (cm) - Depth 0.1 -Total Square Cm 0.25 -Photo Taken Yes -Epithelialization None Present -Tunneling No -Undermining/Tunneling No -Circular Undermining No -Exudate Amt Small -Exudate Type Serosanguineous -Wound Margin Flat & Intact -Granulation Amt Large (67-100%) -Granulation Quality Red -Slough/Fibrin Yes -Necrosis Amt Small (1-33%) -Necrotic Tissue Type Adherent Slough -Structure Exposed N/A -Texture (Dede-wound Skin Appearance) Assessed -Moisture (Dede-wound Skin Appearance) Assessed,Dry/ Scaly -Color (Dede-wound Skin Appearance) Assessed -Temperature (Dede-wound Skin No Abnormality Appearance) (Pt Warm) -Tenderness on Palpation (Dede-wound No Skin Appearance) -Ulcer Cleansing Rinsed/ Irrigated with Saline -Foul Odor after Cleansing No -Anesthetic Used 5% Lidocaine Gel #5 LT PENTECOSTALISM -Combined with other wound No -Current Size (cm) - Length 0.1 -Current Size (cm) - Width 0.1 -Current Size (cm) - Depth 0.1 -Total Square Cm 0.01 -Photo Taken No -Epithelialization Large 67-100% -Tunneling No -Undermining/Tunneling No -Circular Undermining No -Exudate Amt None Present -Wound Margin Flat & Intact -Granulation Amt Small (1-33%) -Slough/Fibrin No -Structure Exposed N/A -Texture (Dede-wound Skin Appearance) Assessed -Moisture (Dede-wound Skin Appearance) Assessed,Dry/ Scaly -Color (Dede-wound Skin Appearance) Assessed -Temperature (Dede-wound Skin No Abnormality Appearance) (Pt Warm) -Tenderness on Palpation (Dede-wound No Skin Appearance) -Ulcer Cleansing Rinsed/ Irrigated with Saline -Foul Odor after Cleansing No Lower Limb Edema Present NA WC - Nurse 2 - General Ulcer CM Notes Start: 09/30/23 10:57 Freq: Status: Active Protocol: Activity Type Activity Date Activity User E-sign Co-sign Detail Recorded Client Recorded Date Recorded By Document 09/30/23 11:19 09/30/23 11:29 09/30/23 11:19 Wound Center Nurse 2 #6 LT JAW -Time 11:24 -Correct Patient Yes -Correct Side, Site, Position Yes -Correct Procedure Yes -Procedure Performed Yes -Type of Procedure Debridement -Clinical Debridement Subcutaneous -Tissue Removed Subcutaneous -Post Debridement (cm) - Length 0.9 -Post Debridement (cm) - Width 0.4 -Post Debridement (cm) - Depth 0.1 -Total Square (Post) (cm) 0.36 -Area of Debridement (cm) - Length 0.9 -Area of Debridement (cm) - Width 0.4 -Total Square (Area) (cm) 0.36 -Wound/Ulcer Outcome Not Healed -Ulcer Cleansing Rinsed/ Irrigated with Saline -Foul Odor after Cleansing No -Topical Lidocaine (%) 5 -Bleeding Controlled with Pressure -Treatment Response Procedure Tolerated Well -Debridement - Subq, 1st 20sq cm Yes Pain Scale: 0-10 Numeric Is Patient Pain Free? Yes - Nurse 3 - General Ulcer D/C NN Start: 09/30/23 10:57 Freq: Status: Active Protocol: Activity Type Activity Date Activity User E-sign Co-sign Detail Recorded Client Recorded Date Recorded By Document 09/30/23 11:37 09/30/23 11:41 09/30/23 11:37 Wound Care Center Nurse 3 #7 RT PENTECOSTALISM -Other Dressing adaptic -Primary Dressing Covered/Secured with Dry Gauze, Secured with Tape #6 LT JAW -Ulcer Cleansing Rinsed/ Irrigated with Saline -Foul Odor after Cleansing No -Primary Dressing Applied Aquacel Extra -Other Dressing adaptic -Primary Dressing Covered/Secured with Dry Gauze, Secured with Tape -Aquacel Extra 1 #5 LT PENTECOSTALISM -Other Dressing adaptic -Primary Dressing Covered/Secured with Dry Gauze, Secured with Tape Treatment Response Procedure Tolerated Well Pain Scale: 0-10 Numeric Is Patient Pain Free? 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 Minimal discomfort today. As above, significant improvement. Continue Vaseline/aquaphor, Adaptic and gauze to bilateral temporal areas. Continue Aquacel extra, cover with Adaptic and gauze to left inferior.. Continue adequate moisturizing, increase protein intake and other chronic wound care management. Daughter voiced understanding. Follow-up in 1 week or sooner if needed. Their questions were answered and they are advised to let us know if they have any further questions or concerns. This note was generated with FlexEl dictation software. It may contain incorrect words, spelling, and punctuation that were not noted in checking the note before signing.
--- NOTE | 2023-10-01 08:40 | WC ---
PHOTO 09/30/23 LEFT JAW
--- NOTE | 2023-10-04 09:43 | WC ---
PHOTO 09/30/23 LEFT JAW
== END 2023-10-30 23:59 | disposition home or self-care (01) ==
LOC: WC 11:09
PROVIDERS: PCP Family Medicine; Referring Provider Family Medicine; Visit Provider Internal Medicine
DX: L98.492 Non-pressure chronic ulcer of skin of other sites with fat layer exposed (principal); R53.81 Other malaise; Z85.828 Personal history of other malignant neoplasm of skin; R29.6 Repeated falls
CPT/HCPCS: 11042

== ENCOUNTER 2023-11-13 11:58 | Emergency (ER) | payer MEDICARE, OTHER, SELFPAY ==
[2023-11-13 11:58] VITALS: BP 173/61; PULSE 84; RESP 14; TEMP 36.4; O2SAT 98; BMI 23.6
--- NOTE | 2023-11-13 12:24 | EX.ED.DYSGE1 ---
HPI <KISHORE Licea - Last Filed: 11/13/23 14:22> History of Present Illness Chief Complaint: Weakness Narrative Narrative: Patient is a 88-year-old female with history of aphasia, Alzheimer's who currently lives in a memory care unit who is a DNR CC. Per the family, the patient has been more fatigued, elevate more altered than usual over the last couple days. Patient does have history of getting UTIs and they are concerned. She has not been eating and drinking as much as usual. Patient is nonverbal however was holding her back while walking. The facility did give her an oxycodone, and this can cause her to be tired as well. Here with both her daughter and son-in-law. No complaints of a fever or chills. REPLACED BY [facility] <KISHORE Licea - Last Filed: 11/13/23 14:22> REPLACED BY [facility] Medical History (Updated 11/13/23 @ 14:19 by KISHORE Licea) Debility History of squamous cell carcinoma of skin Skin ulcer of face with fat layer exposed Open facial wound Non-healing surgical wound Open wound of left forearm Home Medications ?Medication ?Instructions ?Recorded ?Last Taken ?Type allopurinol 300 mg tablet 300 mg PO DAILY 06/13/16 Unknown History atorvastatin 40 mg tablet 40 mg PO DAILY 11/12/17 Unknown History colchicine 0.6 mg capsule 0.3 mg PO DAILY 11/12/17 Unknown History metoprolol tartrate 50 mg tablet 50 mg PO BID 11/12/17 Unknown History sertraline 50 mg tablet 50 mg PO QHS 11/12/17 Unknown History ascorbic acid (vitamin C) 500 mg 500 mg PO BID 03/19/23 Unknown History tablet (Vitamin C) cephalexin 250 mg capsule 250 mg PO DAILY 03/19/23 Unknown History cholecalciferol (vitamin D3) 125 5,000 unit PO DAILY 03/19/23 Unknown History mcg (5,000 unit) tablet (Vitamin D3) cholestyramine (with sugar) 4 gram 1 ea PO DAILY 03/19/23 Unknown History powder for susp in a packet ferrous sulfate 325 mg (65 mg 325 mg PO DAILY 03/19/23 Unknown History iron) tablet (Feosol) memantine 10 mg tablet 5 mg PO BID 03/19/23 Unknown History acetaminophen 650 mg 650 mg PO Q8H PRN fever or pain 02/08/24 Unknown History tablet,extended release loperamide 2 mg capsule 4 mg PO Q6H PRN loose stool 04/08/23 Unknown History (Anti-Diarrheal (loperamide)) Lactobacillus acidophilus 20 20,000 mmu cells PO DAILY 07/02/23 Unknown History billion cell capsule (Florajen Acidophilus) chlorthalidone 25 mg tablet 25 mg PO DAILY 07/02/23 Unknown History doxycycline hyclate 100 mg capsule 100 mg PO BID #14 caps 07/02/23 Unknown Rx fluconazole 150 mg tablet 150 mg PO DAILY PRN yeast 07/02/23 Unknown Rx infection 1 dose #1 TAB colchicine 0.6 mg tablet PO 08/07/23 Unknown History hydrocodone-acetaminophen 5-325mg 1 tab PO Q6H PRN PRN Pain 3 days 08/07/23 Unknown Rx 5mg-325mg #10 TABLETS insulin degludec 200 unit/mL (3 unit subcut 08/07/23 Unknown History mL) subcutaneous pen levothyroxine 50 mcg tablet 50 mcg PO DAILY 08/07/23 Unknown History memantine 5 mg tablet 5 mg PO BID 08/07/23 Unknown History cephalexin 500 mg capsule 500 mg PO Q8H 5 days #15 caps 11/13/23 Unknown Rx Allergy/AdvReac Type Severity Reaction Status Date / Time amoxicillin (From Augmentin) Allergy Severe Hives Verified 11/13/23 12:00 clavulanic acid (From Allergy Severe Hives Verified 11/13/23 12:00 Augmentin) sulfamethoxazole (From AdvReac Nausea Verified 11/13/23 12:00 Bactrim) trimethoprim (From Bactrim) AdvReac Nausea Verified 11/13/23 12:00 Surgical History S/P ORIF (open reduction internal fixation) fracture Social History Smoking Status: Never smoker ROS <KISHORE Licea - Last Filed: 11/13/23 14:22> ROS ED ROS Narrative Secondary to being aphasic, cannot receive a review of symptoms from the patient EXAM <KISHORE Licea - Last Filed: 11/13/23 14:22> Physical Exam Narrative Exam Narrative: Vital signs reviewed. Patient is alert and orient x 1, does respond to verbal stimuli. HEET: Head normocephalic atraumatic, TMs clear bilaterally. Posterior pharynx is clear, dry mucous membranes. Nares clear bilaterally. Neck: Supple with no lymphadenopathy or tenderness. No signs of meningismus. Cardiac: Regular rate and rhythm no murmurs gallops or rubs, equal peripheral pulses bilaterally. Respiratory: Lungs clear to auscultation bilaterally. No chest tenderness. Abdomen: Soft, nontender, nondistended. No abdominal bruit or pulsatile masses. No hepatosplenomegaly Extremities: No peripheral edema, no signs of gross trauma or deformity. Active full range of motion of all extremities. Patient has 2 skin tears to both forearms. The one on the left is worse, I did evaluate this, is no signs of cellulitis. Distally redressed. Neuro: Cranial nerves II through XII intact, no focal neurological deficits. Skin: Clean dry and intact with no rash, purpura, petechiae, vesicles or pustules. Backs/flank: No CVA tenderness, no midline spinal tenderness, no deformity. Psych: Normal mood and affect. No SI, HI or acute psychosis. Const Vital Signs: 11/13/23 11:58 11/13/23 13:32 11/13/23 13:58 Temperature 97.6 F L Temperature Source Temporal Pulse Rate 84 63 Respiratory Rate 14 15 Respiratory Pattern Normal Blood Pressure 173/61 H 178/63 H Blood Pressure Mean 98 101 Pulse Ox 98 97 Oxygen Delivery Method Room Air Room Air Positive cachectic General Appearance ED: cachectic Nutritional Appearance: cachectic <Dr. Fer Benton MD - Last Filed: 11/13/23 14:20> Physical Exam Const Vital Signs: 11/13/23 11:58 11/13/23 13:32 11/13/23 13:58 Temperature 97.6 F L Temperature Source Temporal Pulse Rate 84 63 Respiratory Rate 14 15 Respiratory Pattern Normal Blood Pressure 173/61 H 178/63 H Blood Pressure Mean 98 101 Pulse Ox 98 97 Oxygen Delivery Method Room Air Room Air MDM <KISHORE Licea - Last Filed: 11/13/23 14:22> MDM Lab Data Labs: Laboratory Results - last 24 hr 11/13/23 11/13/23 12:21 12:49 WBC 2.4 L RBC 3.29 L Hgb 10.4 L Hct 33.4 L MCV 101.5 H MCH 31.6 MCHC 31.1 L RDW Std Deviation 53.0 H RDW Coeff of Beatrice 14.2 Plt Count 38 L* MPV 9.5 Immature Gran % (Auto) 0.000 Neut % (Auto) 72.8 H Lymph % (Auto) 20.9 [place] % (Auto) 4.2 Eos % (Auto) 2.1 Baso % (Auto) 0.0 Absolute Neuts (auto) 1.7 L Absolute Lymphs (auto) 0.50 L Nucleated RBC % 0 Sodium 141 Potassium 4.4 Chloride 112 H Carbon Dioxide 22.0 Anion Gap 7 BUN 36 H Creatinine 1.55 H Estim Creat Clear Calc 20.61 Est GFR (MDRD) Af Amer 41 L Est GFR (MDRD) Non-Af 34 L BUN/Creatinine Ratio 23.2 H Glucose 179 H Calcium 9.2 Total Bilirubin 0.50 AST 29 ALT 33 Alkaline Phosphatase 150 H Total Protein 5.5 L Albumin 3.1 L Globulin 2.4 Albumin/Globulin Ratio 1.3 Urine Color Yellow Urine Clarity Sl. Cloudy Urine pH 6.0 Ur Specific [place] 1.010 Urine Protein Negative Urine Glucose (UA) Normal Urine Ketones Negative Urine Occult Blood 250 H Urine Nitrite Negative Urine Bilirubin Negative Urine Urobilinogen Normal Ur Leukocyte Esterase 500 H Urine RBC 5-10 SEEN Urine WBC 25-50 SEEN Ur Squamous Epith Cells 0 SEEN Urine Bacteria 2+ Urine Mucus 0 SEEN Radiography Diagnostic Testing: Clinical Impression(s) from Imaging Studies Chest X-Ray 11/13/23 13:18 IMPRESSION: Nonacute portable x-ray examination of the chest. Electronically Signed: Denzel Lazcano MD ([place]) at 13:41 EDT , Treatment and Re-Evaluation :: Differential diagnosis includes however is not limited to: Dehydration, electrolyte abnormality, UTI, community-acquired pneumonia, COVID-19 or influenza, sequelae of Alzheimer's Patient appears to be in no obvious distress, vital signs are stable, nontoxic-appearing. I spoke with the patient's daughter who is her POA, patient is a DNR CC however patient will receive basic laboratory values, urinalysis chest x-ray and COVID flu. I will provide the patient with 500 cc of normal saline. All radiologic examinations were read, reviewed by the emergency department attending. From these reads, a plan of care will be put in place. Patient's CBC showed a leukopenia this is chronic, hemoglobin 10.4 which is also chronic. Platelet count is low at 38, this is again chronic. Patient's chemistries show chronic kidney insufficiency with a creatinine 1.55, patient's alkaline phosphatase was slightly elevated 150 this is again chronic. No other acute abnormality. Patient's chest x-ray was unremarkable, urinalysis was positive for infection with 2+ bacteria 25-50 white blood cells, 500 leukocytes. Patient did have 2050 blood. This we sent for culture. Patient will be given IV Rocephin, patient replaced on Keflex 3 times a day for 5 days. Patient be going back to the facility. Instructed return for any worsening symptoms. All questions answered, all questions answered stable for discharge <Dr. Fer Benton MD - Last Filed: 11/13/23 14:20> [facility] MDM Narrative Medical decision making narrative: I have personally performed a face to face assessment of the patient and have reviewed the DIANA Note. I performed a substantive portion of the visit including all aspects of the following. My villalpando findings include: History is foul-smelling urine, a little more weak and confused than normal, complained of some low back pain and vomited once couple days ago. Has had urinary tract infections with the symptoms in the past. Exam is confused, at baseline according to family, following commands, keenly alert, well-appearing. Abdomen soft nontender nondistended. No CVA tenderness. Medical Decison Making labs reviewed. Consistent with urinary tract infection. Vital signs are stable, she is clinically well-appearing, and all of this is inconsistent with acute sepsis. She is given a dose of IV Rocephin, culture sent, will send her back to assisted living with appropriate antibiotics and follow-up advised family is comfortable with that plan Other additions or changes: [None] Lab Data Labs: Laboratory Results - last 24 hr 11/13/23 11/13/23 12:21 12:49 WBC 2.4 L RBC 3.29 L Hgb 10.4 L Hct 33.4 L MCV 101.5 H MCH 31.6 MCHC 31.1 L RDW Std Deviation 53.0 H RDW Coeff of Beatrice 14.2 Plt Count 38 L* MPV 9.5 Immature Gran % (Auto) 0.000 Neut % (Auto) 72.8 H Lymph % (Auto) 20.9 [place] % (Auto) 4.2 Eos % (Auto) 2.1 Baso % (Auto) 0.0 Absolute Neuts (auto) 1.7 L Absolute Lymphs (auto) 0.50 L Nucleated RBC % 0 Sodium 141 Potassium 4.4 Chloride 112 H Carbon Dioxide 22.0 Anion Gap 7 BUN 36 H Creatinine 1.55 H Estim Creat Clear Calc 20.61 Est GFR (MDRD) Af Amer 41 L Est GFR (MDRD) Non-Af 34 L BUN/Creatinine Ratio 23.2 H Glucose 179 H Calcium 9.2 Total Bilirubin 0.50 AST 29 ALT 33 Alkaline Phosphatase 150 H Total Protein 5.5 L Albumin 3.1 L Globulin 2.4 Albumin/Globulin Ratio 1.3 Urine Color Yellow Urine Clarity Sl. Cloudy Urine pH 6.0 Ur Specific [place] 1.010 Urine Protein Negative Urine Glucose (UA) Normal Urine Ketones Negative Urine Occult Blood 250 H Urine Nitrite Negative Urine Bilirubin Negative Urine Urobilinogen Normal Ur Leukocyte Esterase 500 H Urine RBC 5-10 SEEN Urine WBC 25-50 SEEN Ur Squamous Epith Cells 0 SEEN Urine Bacteria 2+ Urine Mucus 0 SEEN Radiography Diagnostic Testing: Clinical Impression(s) from Imaging Studies Chest X-Ray 11/13/23 13:18 IMPRESSION: Nonacute portable x-ray examination of the chest. Electronically Signed: Denzel Lazcano MD ([place]) at 13:41 EDT , Discharge Plan Triage Chief Complaint: Weakness ED Midlevel Provider: Ignacio Handy ED Provider: Fer Benton Dx/Rx/DC Orders Clinical Impression: Acute UTI Instructions: Urinary Tract Infections in Women Prescriptions: New cephalexin 500 mg capsule 500 mg PO Q8H 5 Days Qty: 15 0RF No Action allopurinol 300 MG tablet 300 mg PO DAILY atorvastatin 40 MG tablet 40 mg PO DAILY metoprolol tartrate 50 MG tablet 50 mg PO BID sertraline 50 MG tablet 50 mg PO QHS colchicine 0.6 MG tablet 0.3 mg PO DAILY memantine 10 mg tablet 5 mg PO BID cephalexin 250 mg capsule 250 mg PO DAILY cholestyramine (with sugar) 4 gram powder in packet 1 ea PO DAILY ferrous sulfate [Feosol] 325 mg (65 mg iron) tablet 325 mg PO DAILY ascorbic acid (vitamin C) [Vitamin C] 500 mg tablet 500 mg PO BID cholecalciferol (vitamin D3) [Vitamin D3] 125 mcg (5,000 unit) tablet 5,000 unit PO DAILY acetaminophen 650 mg tablet extended release 650 mg PO Q8H PRN (Reason: fever or pain) loperamide [Anti-Diarrheal (loperamide)] 2 mg capsule 4 mg PO Q6H PRN (Reason: loose stool) Patient Comments: AFTER EACH LOOSE STOOL. MAX DOSE 8 CAPSULES DAILY levothyroxine 50 mcg tablet 50 mcg PO DAILY colchicine 0.6 mg tablet PO memantine 5 mg tablet 5 mg PO BID insulin degludec 200 unit/mL (3 mL) insulin pen subcut hydrocodone-acetaminophen 5-325 mg tablet 1 tab PO Q6H PRN PRN (Reason: Pain) 3 Days Qty: 10 0RF chlorthalidone 25 mg tablet 25 mg PO DAILY Florajen Acidophilus 20 billion cell capsule 20,000 mmu cells PO DAILY doxycycline hyclate 100 mg capsule 100 mg PO BID Qty: 14 0RF fluconazole 150 mg tablet 150 mg PO DAILY PRN (Reason: yeast infection) Qty: 1 0RF Rx Instructions: administer on day 1 of therapy Primary Care Provider: Sneha Mabry Referrals: Sneha Mabry MD [Primary Care Provider] - Activity Restrictions/Additional Instructions: Please take your antibiotics until finished. Maintain hydration. Turn for any worsening symptoms. Print Language: Swedish Disposition Disposition: Home, Self Care
[2023-11-13 12:52] LABS: Mucous, Urine 0 SEEN /hpf (<or=2+); Squamous Epithelial Cells - UA 0 SEEN /hpf (5-10)
[2023-11-13 12:55] LABS: Color, Urine Yellow (Yellow); Glucose, Dipstick Normal (Normal); Ketone-Dipstick Negative (Negative); Leukocyte Esterase-Dipstick 500 /ul (Negative); Nitrite-Dipstick Negative (Negative); Occult Blood-Urine 250 /ul (Negative); Protein-Dipstick Negative (Negative); Urine Bilirubin Dipstick Negative (Negative); Urine Clarity Sl. Cloudy (Clear); Urine Urobilinogen Normal (Normal)
[2023-11-13 13:11] LABS: Bacteria 2+ /hpf (None Seen); Red Blood Cells-Urine 5-10 SEEN /hpf (0-5); White Blood Cells 25-50 SEEN /hpf (0-5)
[2023-11-13] MEDS: 0.9% Normal Saline (500mL Bag) 500 ML 999 ML IV (13:12)
--- NOTE | 2023-11-13 13:18 | RAD_ITS ---
STUDY: X-RAY CHEST REASON FOR EXAM: Female, 88 years old. cough TECHNIQUE: AP COMPARISON: 03/19/2023. FINDINGS: EKG leads project over the chest. Patient is rotated. The lungs are clear and expanded. There is no demonstrated pleural abnormality. Normal size heart. Normal mediastinum and gunner. Normal visualized pulmonary arteries. Normal visualized aortic arch and descending thoracic aorta. Normal visualized thoracic spine. Normal visualized ribs, clavicles, and shoulders. There is no demonstrated abnormality of the visualized soft tissue structures of the upper abdomen. RAD/Chest 1 View (Portable) IMPRESSION: Nonacute portable x-ray examination of the chest. Electronically Signed: Denzel Lazcano MD ([place]) at 13:41 EDT ,
[2023-11-13 13:50] LABS: Absolute Neutrophil Count 1.7 X10^3/uL (2.0-7.7); Eosinophil# 0.05 X10^3/uL; Eosinophils% 2.1 % (0-5); Hematocrit 33.4 % (37-47); Hemoglobin 10.4 g/dL (12.0-15.0); Lymphocyte % 20.9 % (19-41); Mean Corp Hgb Conc 31.1 g/dL (32-36); Mean Corpuscular Hgb 31.6 pg (27.0-32.0); Mean Corpuscular Volume 101.5 fL (81-99); Mean Platelet Vol. 9.5 fl (6.2-12.0); Monocyte% 4.2 % (0-10); NRBC Flagged by Analyzer 0 % (0-5); Neutrophil # 1.74 X10^3/uL (2.7-7.7); Neutrophil % 72.8 % (47-70); POSITIVE COUNT YES; POSITIVE DIFFERENTIAL YES; Platelet Count 38 K/mm3 (150-450); RBC Distribution Width CV 14.2 % (11.6-14.6); Red Blood Count 3.29 M/mm3 (4.2-5.4); White Blood Count 2.4 K/mm3 (4.4-11.0)
[2023-11-13 13:58] VITALS: BP 178/63; PULSE 63; RESP 15; O2SAT 97
[2023-11-13 13:58] LABS: Differential Indicated SCAN CRITERIA MET
[2023-11-13] MEDS: Ceftriaxone 1 GM/50 ML BAG IV (14:05)
[2023-11-13 14:12] LABS: ALB/GLOB Ratio 1.3 RATIO (0.9-2.4); AST(SGOT) 29 U/L (15-37); Alanine Aminotransfer ALT/SGPT 33 U/L (13-56); Albumin, Serum 3.1 g/dL (3.2-5.0); Alkaline Phosphatase 150 U/L (45-117); Anion Gap 7 (5-15); BUN 36 mg/dL (7-18); BUN/Creat Ratio 23.2 RATIO (10-20); Calcium,Total 9.2 mg/dL (8.5-10.1); Chloride 112 mmol/L (98-107); Creatinine, Serum 1.55 mg/dL (0.55-1.02); EST Glomerular Filtration Rate 34 mL/min (>60); Est Glom Filt Rate - Afr Amer 41 mL/min (>60); Estimated Creatinine Clearance 20.61 ml/min; Globulin 2.4 g/dL (2.2-4.2); Glucose 179 mg/dL (74-106); Potassium 4.4 mmol/L (3.5-5.1); Protein, Total 5.5 g/dL (6.4-8.2); Sodium Level 141 mmol/L (136-145)
[2023-11-13 14:34] LABS: Platelet Estimate MKD DEC (ADEQ)
[2023-11-13 14:35] LABS: Anisocytosis 1+; Ovalocyte 1+
[2023-11-13 14:49] VITALS: BP 178/88; PULSE 76; RESP 19; TEMP 36.6; O2SAT 97
[2023-11-15 09:28] LABS: Pathologist Review Reviewed
== END 2023-11-13 14:50 | disposition home or self-care (01) ==
PROVIDERS: Nurse Practitioner; Emergency Provider Emergency Medicine; PCP Family Medicine; Visit Provider Emergency Medicine
DX: R53.1 Weakness (principal); G30.9 Alzheimer's disease, unspecified; N39.0 Urinary tract infection, site not specified; Z79.899 Other long term (current) drug therapy
CPT/HCPCS: 36415; 71045; 80053; 81001; 85025; 87077; 87086; 87088; 87186; 87631; 96361; 96365; 99282; J7040; J7050; A4216

== ENCOUNTER → 2023-11-26 | Outpatient (REF) | payer MEDICARE, OTHER, SELFPAY ==
[2023-11-26 16:08] LABS: Bacteria 0 SEEN /hpf (None Seen); Mucous, Urine 0 SEEN /hpf (<or=2+)
[2023-11-26 16:40] LABS: Color, Urine Yellow (Yellow); Glucose, Dipstick Normal (Normal); Ketone-Dipstick Negative (Negative); Leukocyte Esterase-Dipstick 500 /ul (Negative); Nitrite-Dipstick Positive (Negative); Occult Blood-Urine 250 /ul (Negative); Protein-Dipstick 30 mg/dl (Negative); Urine Bilirubin Dipstick Negative (Negative); Urine Clarity Turbid (Clear); Urine Urobilinogen Normal (Normal)
[2023-11-26 17:00] LABS: White Blood Cells >100 SEEN /hpf (0-5)
[2023-11-26 17:01] LABS: Red Blood Cells-Urine 25-50 SEEN /hpf (0-5); Squamous Epithelial Cells - UA 0-5 SEEN /hpf (5-10); Transitional Epithelial - Ur 0-5 SEEN /hpf (0-5)
== END ==
LOC: OLS.BROOKB 16:03
PROVIDERS: PCP Family Medicine; Visit Provider Family Medicine
DX: N39.0 Urinary tract infection, site not specified (principal)
CPT/HCPCS: 81001; 87077; 87086; 87088; 87186

== ENCOUNTER → 2023-12-09 | Outpatient (REF) | payer MEDICARE, OTHER, SELFPAY ==
[2023-12-10 10:40] LABS: Color, Urine Yellow (Yellow); Glucose, Dipstick Normal (Normal); Ketone-Dipstick 5 mg/dl (Negative); Leukocyte Esterase-Dipstick 500 /ul (Negative); Nitrite-Dipstick Negative (Negative); Occult Blood-Urine 250 /ul (Negative); Protein-Dipstick 100 mg/dl (Negative); Urine Bilirubin Dipstick Negative (Negative); Urine Clarity Sl. Cloudy (Clear); Urine Urobilinogen Normal (Normal)
== END ==
LOC: OLS.BROOKB 18:00
PROVIDERS: PCP Family Medicine; Visit Provider Family Medicine
DX: R41.82 Altered mental status, unspecified (principal); N39.0 Urinary tract infection, site not specified
CPT/HCPCS: 81002; 87086; 87088

== ENCOUNTER → 2023-12-13 | Outpatient (REF) | payer MEDICARE, OTHER, SELFPAY ==
[2023-12-13 11:02] LABS: Bacteria 0 SEEN /hpf (None Seen); Mucous, Urine 0 SEEN /hpf (<or=2+)
[2023-12-13 11:12] LABS: Color, Urine Yellow (Yellow); Glucose, Dipstick Normal (Normal); Ketone-Dipstick Negative (Negative); Leukocyte Esterase-Dipstick 25 /ul (Negative); Nitrite-Dipstick Negative (Negative); Occult Blood-Urine 250 /ul (Negative); Protein-Dipstick 15 mg/dl (Negative); Urine Bilirubin Dipstick Negative (Negative); Urine Clarity Clear (Clear); Urine Urobilinogen Normal (Normal)
[2023-12-13 11:21] LABS: Squamous Epithelial Cells - UA 0-5 SEEN /hpf (5-10)
[2023-12-13 11:22] LABS: Red Blood Cells-Urine 0-5 SEEN /hpf (0-5); White Blood Cells 0-5 SEEN /hpf (0-5)
== END ==
LOC: OLS.BROOKB 07:00
PROVIDERS: PCP Family Medicine; Visit Provider Family Medicine
DX: N39.0 Urinary tract infection, site not specified (principal); E11.9 Type 2 diabetes mellitus without complications
CPT/HCPCS: 81001; 87086

== ENCOUNTER → 2023-12-13 | Outpatient (REF) | payer MEDICARE, OTHER, SELFPAY ==
[2023-12-13 08:33] LABS: Erythrocyte Sedimentation Rate < 1 mm/hr (0-30)
[2023-12-13 08:36] LABS: Hematocrit 29.9 % (37-47); Hemoglobin 9.8 g/dL (12.0-15.0); Mean Corp Hgb Conc 32.8 g/dL (32-36); Mean Corpuscular Hgb 32.8 pg (27.0-32.0); Mean Platelet Vol. 11.1 fl (6.2-12.0); POSITIVE COUNT YES; RBC Distribution Width CV 13.9 % (11.6-14.6); RBC Distribution Width SD 50.2 fl (35.1-43.9); Red Blood Count 2.99 M/mm3 (4.2-5.4); White Blood Count 2.6 K/mm3 (4.4-11.0)
[2023-12-13 08:54] LABS: Platelet Count 44 K/mm3 (150-450)
[2023-12-13 08:55] LABS: Scan Indicated on CBC? Y/N YES- FLAGS NOTED
[2023-12-13 09:01] LABS: ALB/GLOB Ratio 1.3 RATIO (0.9-2.4); AST(SGOT) 16 U/L (15-37); Alanine Aminotransfer ALT/SGPT 22 U/L (13-56); Albumin, Serum 3.1 g/dL (3.2-5.0); Alkaline Phosphatase 113 U/L (45-117); Anion Gap 7 (5-15); BUN 30 mg/dL (7-18); BUN/Creat Ratio 22.7 RATIO (10-20); CRP < 2.90 mg/L (0.0-3.0); Calcium,Total 9.3 mg/dL (8.5-10.1); Chloride 111 mmol/L (98-107); Creatinine, Serum 1.32 mg/dL (0.55-1.02); EST Glomerular Filtration Rate 41 mL/min (>60); Est Glom Filt Rate - Afr Amer 49 mL/min (>60); Globulin 2.3 g/dL (2.2-4.2); Glucose 115 mg/dL (74-106); Potassium 4.1 mmol/L (3.5-5.1); Protein, Total 5.4 g/dL (6.4-8.2); Sodium Level 141 mmol/L (136-145); T4 Free Direct 0.77 ng/dL (0.76-1.46)
[2023-12-14 14:39] LABS: Pathologist Review Reviewed
== END ==
LOC: OLS.BROOKB 04:00
PROVIDERS: PCP Family Medicine; Visit Provider Family Medicine
DX: N39.0 Urinary tract infection, site not specified (principal); N39.8 Other specified disorders of urinary system; R33.9 Retention of urine, unspecified; N18.4 Chronic kidney disease, stage 4 (severe); I12.9 Hypertensive chronic kidney disease with stage 1 through stage 4 chronic kidney disease, or unspecified chronic kidney disease; E78.5 Hyperlipidemia, unspecified; E03.9 Hypothyroidism, unspecified
CPT/HCPCS: 36415; 80053; 84439; 84443; 85027; 85652; 86140

== ENCOUNTER → 2024-03-23 | Outpatient (REF) | payer MEDICARE, OTHER, SELFPAY ==
[2024-03-23 08:23] LABS: Hematocrit 37.7 % (37-47); Hemoglobin 12.6 g/dL (12.0-15.0); Mean Corp Hgb Conc 33.4 g/dL (32-36); Mean Corpuscular Hgb 32.6 pg (27.0-32.0); Mean Corpuscular Volume 97.7 fL (81-99); Mean Platelet Vol. 10.6 fl (6.2-12.0); POSITIVE COUNT YES; Platelet Count 68 K/mm3 (150-450); RBC Distribution Width CV 14.6 % (11.6-14.6); RBC Distribution Width SD 50.4 fl (35.1-43.9); Red Blood Count 3.86 M/mm3 (4.2-5.4)
[2024-03-23 08:32] LABS: Vitamin B12 910 pg/mL (211-911)
[2024-03-23 08:48] LABS: ALB/GLOB Ratio 1.2 RATIO (0.9-2.4); AST(SGOT) 32 U/L (15-37); Alanine Aminotransfer ALT/SGPT 30 U/L (13-56); Albumin, Serum 3.6 g/dL (3.2-5.0); Alkaline Phosphatase 152 U/L (45-117); Anion Gap 8 (5-15); BUN 32 mg/dL (7-18); Chloride 106 mmol/L (98-107); Creatinine, Serum 1.39 mg/dL (0.55-1.02); EST Glomerular Filtration Rate 38 mL/min (>60); Est Glom Filt Rate - Afr Amer 46 mL/min (>60); Globulin 3.1 g/dL (2.2-4.2); Glucose 170 mg/dL (74-106); Magnesium 1.4 mg/dL (1.6-2.6); Potassium 3.7 mmol/L (3.5-5.1); Protein, Total 6.7 g/dL (6.4-8.2); Sodium Level 137 mmol/L (136-145); T4 Total, Thyroxin 9.1 ug/dL (4.8-13.9)
== END ==
LOC: OLS.BROOKB 05:00
PROVIDERS: PCP Family Medicine; Visit Provider Family Medicine
DX: F03.90 Unspecified dementia, unspecified severity, without behavioral disturbance, psychotic disturbance, mood disturbance, and anxiety (principal)
CPT/HCPCS: 36415; 80053; 82140; 82607; 83735; 84436; 84443; 85027

== ENCOUNTER 2024-03-25 14:29 | Emergency (ER) | payer MEDICARE, OTHER, SELFPAY ==
[2024-03-25 14:31] VITALS: BP 153/50; PULSE 67; RESP 18; TEMP 36.9; O2SAT 97; BMI 22.8
[2024-03-25 14:36] VITALS: BP 153/50; PULSE 67; RESP 18; TEMP 36.9; O2SAT 97
--- NOTE | 2024-03-25 14:43 | EX.ED.DYSGE1 ---
HPI <BRENDA Lobo - Last Filed: 03/25/24 16:00> History of Present Illness Chief Complaint: Confusion Narrative Narrative: 88-year-old female with past medical history of aphasia, Alzheimer's dementia was sent in from [facility] unit because she was more agitated, trying to leave her room, and was combative with staff today. She gets frequent UTIs but they were unable to get a sample. She recently had norovirus so was having a lot of diarrhea. No fever noted. At baseline she is alert and oriented x 1. She is DNR CC. She was sent in because family was concerned. [facility] <BRENDA Lobo - Last Filed: 03/25/24 16:00> [facility] Medical History (Updated 03/25/24 @ 15:13 by BRENDA Lobo) Debility History of squamous cell carcinoma of skin Skin ulcer of face with fat layer exposed Open facial wound Non-healing surgical wound Open wound of left forearm Home Medications ?Medication ?Instructions ?Recorded ?Last Taken ?Type allopurinol 300 mg tablet 300 mg PO DAILY 06/13/16 Unknown History atorvastatin 40 mg tablet 40 mg PO DAILY 11/12/17 Unknown History colchicine 0.6 mg capsule 0.3 mg PO DAILY 11/12/17 Unknown History metoprolol tartrate 50 mg tablet 50 mg PO BID 11/12/17 Unknown History sertraline 50 mg tablet 50 mg PO QHS 11/12/17 Unknown History ascorbic acid (vitamin C) 500 mg 500 mg PO BID 03/19/23 Unknown History tablet (Vitamin C) cephalexin 250 mg capsule 250 mg PO DAILY 03/19/23 Unknown History cholecalciferol (vitamin D3) 125 5,000 unit PO DAILY 03/19/23 Unknown History mcg (5,000 unit) tablet (Vitamin D3) cholestyramine (with sugar) 4 gram 1 ea PO DAILY 03/19/23 Unknown History powder for susp in a packet ferrous sulfate 325 mg (65 mg 325 mg PO DAILY 03/19/23 Unknown History iron) tablet (Feosol) acetaminophen 650 mg 650 mg PO Q8H PRN fever or pain 04/08/23 Unknown History tablet,extended release loperamide 2 mg capsule 4 mg PO Q6H PRN loose stool 04/08/23 Unknown History (Anti-Diarrheal (loperamide)) Lactobacillus acidophilus 20 20,000 mmu cells PO DAILY 07/02/23 Unknown History billion cell capsule (Florajen Acidophilus) chlorthalidone 25 mg tablet 25 mg PO DAILY 07/02/23 Unknown History hydrocodone-acetaminophen 5-325mg 1 tab PO Q6H PRN PRN Pain 3 days 08/07/23 Unknown Rx 5mg-325mg #10 TABLETS insulin degludec 200 unit/mL (3 10 unit subcut QHS 08/07/23 Unknown History mL) subcutaneous pen levothyroxine 50 mcg tablet 50 mcg PO DAILY 08/07/23 Unknown History memantine 5 mg tablet 5 mg PO BID 08/07/23 Unknown History ciprofloxacin HCl 500 mg tablet 500 mg PO BID 7 days #13 TABLETS 03/25/24 Unknown Rx diclofenac sodium 1 % topical gel 2 g topical TID PRN 03/25/24 Unknown History furosemide 20 mg tablet 20 mg PO DAILY 03/25/24 Unknown History hydrocortisone 1 % topical cream 1 applic topical Q12H PRN 03/25/24 Unknown History with perineal applicator hemorrhoids insulin lispro 100 unit/mL 1 sliding scale dose subcut UD 03/25/24 Unknown History subcutaneous pen (Humalog KwikPen (U-100) Insulin) lidocaine 5 % topical cream 1 applic topical BID PRN 03/25/24 Unknown History (AneCream5) hemorrhoids lidocaine 5 % topical cream 1 applic topical Q4H PRN pain 03/25/24 Unknown History (AneCream5) lorazepam 0.5 mg tablet 0.5 mg PO Q8H 03/25/24 Unknown History ondansetron 4 mg disintegrating 4 mg PO Q8H 03/25/24 Unknown History tablet oxycodone 5 mg tablet 5 mg PO Q8H PRN pain 03/25/24 Unknown History Allergy/AdvReac Type Severity Reaction Status Date / Time amoxicillin (From Augmentin) Allergy Severe Hives Verified 03/07/24 10:54 clavulanic acid (From Allergy Severe Hives Verified 03/07/24 10:54 Augmentin) sulfamethoxazole (From AdvReac Nausea Verified 03/07/24 10:54 Bactrim) trimethoprim (From Bactrim) AdvReac Nausea Verified 03/07/24 10:54 Surgical History (System 03/07/24 @ 10:54 by Elizabeth Alcantara) S/P ORIF (open reduction internal fixation) fracture Social History (System 03/07/24 @ 10:54 by Elizabeth Alcantara) Smoking Status: Never smoker ROS <BRENDA Lobo - Last Filed: 03/25/24 16:00> ROS ED ROS Narrative Unable to obtain due to dementia EXAM <BRENDA Lobo - Last Filed: 03/25/24 16:00> Physical Exam Narrative Exam Narrative: CONST: Elderly cachectic patient lying in bed in no distress. EYES: Normal inspection. NECK: Normal inspection. RESP: No respiratory distress, CTAB. CVS: Regular rate and rhythm, no murmur, no gallop. ABD: Soft and nontender, no guarding or rebound, nondistended. : Normal external genitalia but there is dried stool on depends and labia. SKIN: Color normal, no rash, warm, dry, intact. EXTREMITIES: Normal appearance, no pedal edema. NEURO: Awake and alert to self. PSYCH: Normal affect. Const Vital Signs: 03/25/24 14:31 03/25/24 14:36 03/25/24 15:38 Temperature 98.5 F 98.5 F 98.0 F Temperature Source Oral Oral Pulse Rate 67 67 71 Respiratory Rate 18 18 18 Blood Pressure 153/50 H 153/50 H 153/51 H Blood Pressure Mean 84 84 85 Pulse Ox 97 97 97 Oxygen Delivery Method Room Air Room Air <Dr. Faheem Ochoa, DO - Last Filed: 03/25/24 15:41> Physical Exam Const Vital Signs: 03/25/24 14:31 03/25/24 14:36 03/25/24 15:38 Temperature 98.5 F 98.5 F 98.0 F Temperature Source Oral Oral Pulse Rate 67 67 71 Respiratory Rate 18 18 18 Blood Pressure 153/50 H 153/50 H 153/51 H Blood Pressure Mean 84 84 85 Pulse Ox 97 97 97 Oxygen Delivery Method Room Air Room Air MDM <BRENDA Lobo - Last Filed: 03/25/24 16:00> MDM MDM Narrative Medical decision making narrative: History gathered from: EMS, daughter Differential includes but not limited to UTI, electrolyte abnormality, HHS, DKA 88-year-old female from memory care who is alert and oriented x 1 at baseline was sent in for agitation. She appears chronically ill but nontoxic. Afebrile and hemodynamically stable. She is alert to self and has no focal neurological deficits. Labs show chronic pancytopenia. Creatinine of 1.75 is slightly elevated from baseline of 1.3-1.4. Her electrolytes are unremarkable. Glucose is 334 with normal CO2 and anion gap. Urinalysis is consistent with UTI. She was given IV fluids and Cipro because her prior cultures most often showed Citrobacter freundii which were pansensitive except to ceftriaxone. I discussed with the patient's daughter who is comfortable taking her back to the facility and she was discharged in stable condition. Lab Data Attestation: I reviewed the patient's lab results. Labs: Laboratory Results - last 24 hr 03/25/24 03/25/24 14:40 14:49 WBC 3.2 L RBC 3.45 L Hgb 11.3 L Hct 33.7 L MCV 97.7 MCH 32.8 H MCHC 33.5 RDW Std Deviation 51.8 H RDW Coeff of Beatrice 14.6 Plt Count 44 L* MPV 10.3 Immature Gran % (Auto) 0.300 Neut % (Auto) 74.6 H Lymph % (Auto) 18.6 L Fergus % (Auto) 5.0 Eos % (Auto) 1.2 Baso % (Auto) 0.3 Absolute Neuts (auto) 2.4 Absolute Lymphs (auto) 0.60 L Nucleated RBC % 0 Differential Comment SCANNED Diff Path Review May foll Platelet Estimate MKD DEC Anisocytosis 1+ Schistocytes RARE Sodium 139 Potassium 4.1 Chloride 108 H Carbon Dioxide 24.0 Anion Gap 7 BUN 38 H Creatinine 1.75 H Estim Creat Clear Calc 17.41 Est GFR (MDRD) Af Amer 35 L Est GFR (MDRD) Non-Af 29 L BUN/Creatinine Ratio 21.7 H Glucose 334 H Calcium 9.6 Urine Color Yellow Urine Clarity Turbid Urine pH 5.0 Ur Specific Clanton 1.020 Urine Protein 30 H Urine Glucose (UA) 50 H Urine Ketones Negative Urine Occult Blood 250 H Urine Nitrite Positive H Urine Bilirubin Negative Urine Urobilinogen Normal Ur Leukocyte Esterase 500 H Urine RBC 10-25 SEEN Urine WBC >100 SEEN Ur Squamous Epith Cells 0-5 SEEN Urine Bacteria 3+ WBC Casts 5-10 SEEN Urine Mucus 1+ <Dr. Faheem Ochoa, DO - Last Filed: 03/25/24 15:41> [facility] Lab Data Labs: Laboratory Results - last 24 hr 03/25/24 03/25/24 14:40 14:49 WBC 3.2 L RBC 3.45 L Hgb 11.3 L Hct 33.7 L MCV 97.7 MCH 32.8 H MCHC 33.5 RDW Std Deviation 51.8 H RDW Coeff of Beatrice 14.6 Plt Count 44 L* MPV 10.3 Immature Gran % (Auto) 0.300 Neut % (Auto) 74.6 H Lymph % (Auto) 18.6 L Fergus % (Auto) 5.0 Eos % (Auto) 1.2 Baso % (Auto) 0.3 Absolute Neuts (auto) 2.4 Absolute Lymphs (auto) 0.60 L Nucleated RBC % 0 Differential Comment SCANNED Diff Path Review May foll Platelet Estimate MKD DEC Anisocytosis 1+ Schistocytes RARE Sodium 139 Potassium 4.1 Chloride 108 H Carbon Dioxide 24.0 Anion Gap 7 BUN 38 H Creatinine 1.75 H Estim Creat Clear Calc 17.41 Est GFR (MDRD) Af Amer 35 L Est GFR (MDRD) Non-Af 29 L BUN/Creatinine Ratio 21.7 H Glucose 334 H Calcium 9.6 Urine Color Yellow Urine Clarity Turbid Urine pH 5.0 Ur Specific [place] 1.020 Urine Protein 30 H Urine Glucose (UA) 50 H Urine Ketones Negative Urine Occult Blood 250 H Urine Nitrite Positive H Urine Bilirubin Negative Urine Urobilinogen Normal Ur Leukocyte Esterase 500 H Urine RBC 10-25 SEEN Urine WBC >100 SEEN Ur Squamous Epith Cells 0-5 SEEN Urine Bacteria 3+ WBC Casts 5-10 SEEN Urine Mucus 1+ Treatment and Re-Evaluation :: I have personally performed a face to face assessment of the patient and have reviewed the DIANA Note. I performed a substantive portion of the visit including all aspects of the following. My villalpando findings include: History: Patient presents with increasing confusion and combativeness that has gotten worse over the past couple days. Patient recently had norovirus and has been having diarrhea. Family states patient is more confused than usual. Family is concerned the patient is dehydrated or possibly has a urinary tract infection. Patient is normally only alert and oriented to person and is a poor informant. Family states patient was getting combative at the retirement today. Exam: Vital signs are stable except for mildly elevated blood pressure 153/50. Patient is afebrile. Patient is in no acute distress. Patient is awake alert and oriented to person only. Oral mucosa is pink and somewhat dry. Neck is supple. Trachea is midline. There is no JVD. Heart was regular rate and rhythm. Lungs are clear and equal bilaterally. Abdomen is soft. Bowel sounds are normal. There is no tenderness. Cranial nerves II through XII are intact. There are no focal motor or sensory deficits noted. Medical Decision Making: Differential diagnosis includes dehydration, urinary tract infection, sepsis, and electrolyte abnormality. CBC will be obtained to assess for leukocytosis and anemia. Basic metabolic profile will be obtained to assess for electrolyte abnormality and renal function. Urinalysis will be obtained to assess for urinary tract infection and hematuria. Urine culture will be obtained to assess for urinary tract infection. Patient was given IV fluids. CBC was reviewed. White blood cell count was slightly low at 3.2. There is a mild anemia with a hemoglobin of 11.3 and hematocrit 33.7. There is a thrombocytopenia with a platelet count of 44. These are stable compared to previous results. Basic metabolic profile was reviewed. BUN was 38 and creatinine was 1.75. These are slightly increased from previous result. Glucose was elevated at 334. Urinalysis was reviewed. Leukocyte esterase was 500 with greater than 100 white blood cells and 3+ bacteria. Patient was given a dose of Cipro here. Patient was given a prescription for Cipro. Patient was instructed to follow-up with her primary care physician in 5 to 7 days. Family understood and was agreeable with the plan. All questions were answered. Discharge Plan Triage Chief Complaint: Confusion ED Midlevel Provider: Elizabet Thomas ED Provider: Faheem Ochoa Dx/Rx/DC Orders Clinical Impression: Acute UTI, Dementia Instructions: UTIs Understanding Prescriptions: New ciprofloxacin HCl 500 mg tablet 500 mg PO BID 7 Days Qty: 13 0RF No Action allopurinol 300 MG tablet 300 mg PO DAILY atorvastatin 40 MG tablet 40 mg PO DAILY metoprolol tartrate 50 MG tablet 50 mg PO BID sertraline 50 MG tablet 50 mg PO QHS colchicine 0.6 MG tablet 0.3 mg PO DAILY cephalexin 250 mg capsule 250 mg PO DAILY cholestyramine (with sugar) 4 gram powder in packet 1 ea PO DAILY ferrous sulfate [Feosol] 325 mg (65 mg iron) tablet 325 mg PO DAILY ascorbic acid (vitamin C) [Vitamin C] 500 mg tablet 500 mg PO BID cholecalciferol (vitamin D3) [Vitamin D3] 125 mcg (5,000 unit) tablet 5,000 unit PO DAILY acetaminophen 650 mg tablet extended release 650 mg PO Q8H PRN (Reason: fever or pain) loperamide [Anti-Diarrheal (loperamide)] 2 mg capsule 4 mg PO Q6H PRN (Reason: loose stool) Patient Comments: AFTER EACH LOOSE STOOL. MAX DOSE 8 CAPSULES DAILY levothyroxine 50 mcg tablet 50 mcg PO DAILY memantine 5 mg tablet 5 mg PO BID insulin degludec 200 unit/mL (3 mL) insulin pen 10 unit subcut QHS hydrocodone-acetaminophen 5-325 mg tablet 1 tab PO Q6H PRN PRN (Reason: Pain) 3 Days Qty: 10 0RF chlorthalidone 25 mg tablet 25 mg PO DAILY Florajen Acidophilus 20 billion cell capsule 20,000 mmu cells PO DAILY furosemide 20 mg tablet 20 mg PO DAILY insulin lispro [Humalog KwikPen Insulin] 100 unit/mL insulin pen 1 sliding scale dose SUBCUT UD Patient Comments: INJECT SUBCUTANEOUSLY PER SLIDING SCALE. GLUCOSE < 150 0 UNITS, 150-199 1 UNIT, 200-249 3 UNITS, 250-299 5 UNITS, 300-349 7 UNITS, >349 8 UN diclofenac sodium 1 % gel 2 g topical TID PRN hydrocortisone 1 % cream with perineal applicator 1 applic topical Q12H PRN (Reason: hemorrhoids) lorazepam 0.5 mg tablet 0.5 mg PO Q8H Patient Comments: [NO ORIGINAL SIG] lidocaine [AneCream5] 5 % cream 1 applic topical BID PRN (Reason: hemorrhoids) lidocaine [AneCream5] 5 % cream 1 applic topical Q4H PRN (Reason: pain) Rx Instructions: face oxycodone 5 mg tablet 5 mg PO Q8H PRN (Reason: pain) ondansetron 4 mg tablet,disintegrating 4 mg PO Q8H Primary Care Provider: Sneha Mabry Referrals: Sneha Mabry MD [Primary Care Provider] - Activity Restrictions/Additional Instructions: She was given IV fluids for mild dehydration and a first dose of ciprofloxacin to treat UTI. Continue all of the antibiotics as prescribed. Follow-up with her primary care doctor. Patient is not deemed to be a threat to herself at this time. She has not made any such statements while here. Print Language: Swedish Disposition Disposition: Home, Self Care
[2024-03-25 14:52] LABS: Absolute Neutrophil Count 2.4 X10^3/uL (2.0-7.7); Basophil# 0.01 X10^3/uL; Basophil% 0.3 % (0-1); Eosinophil# 0.04 X10^3/uL; Eosinophils% 1.2 % (0-5); Hematocrit 33.7 % (37-47); Hemoglobin 11.3 g/dL (12.0-15.0); Lymphocyte % 18.6 % (19-41); Mean Corp Hgb Conc 33.5 g/dL (32-36); Mean Corpuscular Hgb 32.8 pg (27.0-32.0); Mean Corpuscular Volume 97.7 fL (81-99); Mean Platelet Vol. 10.3 fl (6.2-12.0); Monocyte# 0.16 X10^3/uL; NRBC Flagged by Analyzer 0 % (0-5); Neutrophil # 2.41 X10^3/uL (2.7-7.7); Neutrophil % 74.6 % (47-70); POSITIVE COUNT YES; POSITIVE DIFFERENTIAL YES; RBC Distribution Width CV 14.6 % (11.6-14.6); RBC Distribution Width SD 51.8 fl (35.1-43.9); Red Blood Count 3.45 M/mm3 (4.2-5.4); White Blood Count 3.2 K/mm3 (4.4-11.0)
[2024-03-25 14:55] LABS: Differential Indicated SCAN CRITERIA MET; Platelet Count 44 K/mm3 (150-450)
[2024-03-25 14:58] LABS: Color, Urine Yellow (Yellow); Glucose, Dipstick 50 mg/dl (Normal); Ketone-Dipstick Negative (Negative); Leukocyte Esterase-Dipstick 500 /ul (Negative); Nitrite-Dipstick Positive (Negative); Occult Blood-Urine 250 /ul (Negative); Protein-Dipstick 30 mg/dl (Negative); Urine Bilirubin Dipstick Negative (Negative); Urine Clarity Turbid (Clear); Urine Urobilinogen Normal (Normal)
[2024-03-25] MEDS: 0.9% Normal Saline (500mL Bag) 500 ML 999 ML IV (14:59)
[2024-03-25 15:08] LABS: White Blood Cells >100 SEEN /hpf (0-5)
[2024-03-25 15:09] LABS: Bacteria 3+ /hpf (None Seen); Mucous, Urine 1+ /hpf (<or=2+); Red Blood Cells-Urine 10-25 SEEN /hpf (0-5); White Cell Cast 5-10 SEEN /lpf (None Seen)
[2024-03-25 15:10] LABS: Squamous Epithelial Cells - UA 0-5 SEEN /hpf (5-10)
[2024-03-25 15:12] LABS: Differential Comment SCANNED; Platelet Estimate MKD DEC (ADEQ)
[2024-03-25 15:13] LABS: Anion Gap 7 (5-15); Anisocytosis 1+; BUN 38 mg/dL (7-18); BUN/Creat Ratio 21.7 RATIO (10-20); Calcium,Total 9.6 mg/dL (8.5-10.1); Chloride 108 mmol/L (98-107); Creatinine, Serum 1.75 mg/dL (0.55-1.02); EST Glomerular Filtration Rate 29 mL/min (>60); Est Glom Filt Rate - Afr Amer 35 mL/min (>60); Estimated Creatinine Clearance 17.41 ml/min; Glucose 334 mg/dL (74-106); Potassium 4.1 mmol/L (3.5-5.1); Schistocytes RARE; Sodium Level 139 mmol/L (136-145)
[2024-03-25] MEDS: Ciprofloxacin 500 MG Tablet PO (15:35)
[2024-03-25 15:38] VITALS: BP 153/51; PULSE 71; RESP 18; TEMP 36.7; O2SAT 97
[2024-03-27 16:15] LABS: Pathologist Review Reviewed
== END 2024-03-25 16:09 | disposition home or self-care (01) ==
PROVIDERS: Physician Assistant; Emergency Provider Emergency Medicine; PCP Family Medicine; Visit Provider Emergency Medicine
DX: N39.0 Urinary tract infection, site not specified (principal); G30.9 Alzheimer's disease, unspecified; F02.80 Dementia in other diseases classified elsewhere, unspecified severity, without behavioral disturbance, psychotic disturbance, mood disturbance, and anxiety
CPT/HCPCS: 80048; 81001; 85025; 87077; 87086; 87088; 87186; 96360; 99285; P9612; A4216

== ENCOUNTER 2024-03-28 11:00 | Emergency (ER) | payer MEDICARE, OTHER, SELFPAY ==
[2024-03-28] VITALS (9 sets, daily range): BP systolic 160–201; BP diastolic 51–135; PULSE 61–79; RESP 16–20; TEMP 36.3–37.2; O2SAT 97–100; BMI 23.2
--- NOTE | 2024-03-28 12:13 | CT_ITS ---
PROCEDURE: BRAIN/HEAD WITHOUT CONTRAST REASON FOR EXAM: Syncopal episodes. Recent UTI TECHNIQUE: No IV contrast. COMPARISON: None. # of known CTs in the past 12 months: 0 # of known Cardiac Nuclear Medicine Studies in the past 12 months: 0 FINDINGS: EXAMINATION: CT Head Without Contrast. CLINICAL INDICATION: Recent UTI. Confusion. COMPARISON: None. TECHNIQUE: Helical imaging of CT head was performed without IV contrast. One or more of the following dose reduction techniques were used: automated exposure control, adjustm ent of the mA and/or kV according to patient size, use of iterative reconstruction technique. FINDINGS: BRAIN PARENCHYMA: No evidence for acute hemorrhage or large territory infarct. Cerebral atrophy. EXTRA-AXIAL SPACES: No acute extra-axial fluid collection identified. Basal cisterns are patent. MIDLINE SHIFT: None. VENTRICLES: No evidence of hydrocephalus. SCALP SOFT TISSUES: No significant abnormality. CALVARIUM: No acute process. VISUALIZED PARANASAL SINUSES: No air-fluid levels. MASTOID AIR CELLS: Grossly clear. CT/Brain/Head without Contrast IMPRESSION: Cerebral atrophy. IMPRESSION: No acute abnormality is seen. One or more dose reduction techniques were used (e.g., Automated exposure contr ol, adjustment of the mA and/or kV according to patient size, use of iterative reconstruction technique). Reading Location: [place] [id number]
--- NOTE | 2024-03-28 12:14 | EKG12_ITS ---
Test Reason : AMS Blood Pressure : */* mmHG Vent. Rate : 61 BPM Atrial Rate : 61 BPM P-R Int : 122 ms QRS Dur : 80 ms QT Int : 404 ms P-R-T Axes : 18 9 65 degrees QTcB Int : 406 ms Normal sinus rhythm Normal ECG Confirmed by NEERAJ GRAHAM, SHERRI ([id number]), medical editor LEO GRAHAM ([id number]) on 03/30/2024 6:36:37 AM Referred By: Confirmed By: SHERRI PICKARD MD
[2024-03-28] MEDS: 0.9% Normal Saline (1000mL) 1,000 ML 1000 ML IV (12:19)
--- NOTE | 2024-03-28 12:28 | EDS_ITS ---
HPI History of Present Illness Chief Complaint: Alt LOC Narrative Narrative: Chief complaint and HPI: Altered mental status. 88-year-old female with history of aphasia, Alzheimer's dementia and a memory care unit presents for evaluation of altered mental status. History unable to be obtained by the patient's as she is mostly aphasic. History taken by daughter. Daughter states that the patient lives in a memory care unit. She states that she recently had norovirus and since then has been on a steady decline. She was also seen in our emergency department on Wednesday and diagnosed with a UTI. States she was ultimately discharged home. Daughter states since discharge she has had poor appetite. She seems more fatigued and less responsive than usual. Daughter states that today she had an episode where she fell backwards onto the bed and seemed minimally responsive. Lasted several seconds. Daughter denies any fever, chills, shortness of breath, chest pain abdominal pain, nausea, vomiting, diarrhea currently that she knows of. Daughter states she has had a mild cough Review of systems: See HPI Medications: As listed on the chart Allergies: As listed on the chart PFSH: Per chart Vital signs: As listed on the chart. Reviewed. Physical exam: Gen: Aert, oriented x 0-daughter states she fluctuates between 0 and x 1, AD Head: Normocephalic, atraumatic Eyes: No sclera icterus, conjunctiva clear, PERRL , EOMI ENT: Dry mucous membranes Neck: Trachea midline, No JVD, full range of motion CV: RRR, no murmurs, no peripheral edema Resp: Lungs CTA BL, no w/r/c GI: Abd soft, non-distended, non-tender, no r/r/g Musc: Moves all extremity, no deformity Skin: Warm, dry [facility] Medical History (Updated 03/28/24 @ 15:[address] Edmundo Ramos, DO) Debility History of squamous cell carcinoma of skin Skin ulcer of face with fat layer exposed Open facial wound Non-healing surgical wound Open wound of left forearm Home Medications ?Medication ?Instructions ?Recorded ?Last Taken ?Type allopurinol 300 mg tablet 300 mg PO DAILY 06/13/16 Unknown History atorvastatin 40 mg tablet 40 mg PO DAILY 11/12/17 Unknown History colchicine 0.6 mg capsule 0.3 mg PO DAILY 09/14/18 Unknown History metoprolol tartrate 50 mg tablet 50 mg PO BID 11/12/17 Unknown History sertraline 50 mg tablet 50 mg PO QHS 11/12/17 Unknown History ascorbic acid (vitamin C) 500 mg 500 mg PO BID 03/19/23 Unknown History tablet (Vitamin C) cephalexin 250 mg capsule 250 mg PO DAILY 03/19/23 Unknown History cholecalciferol (vitamin D3) 125 5,000 unit PO DAILY 03/19/23 Unknown History mcg (5,000 unit) tablet (Vitamin D3) cholestyramine (with sugar) 4 gram 1 ea PO DAILY 03/19/23 Unknown History powder for susp in a packet ferrous sulfate 325 mg (65 mg 325 mg PO DAILY 03/19/23 Unknown History iron) tablet (Feosol) acetaminophen 650 mg 650 mg PO Q8H PRN fever or pain 04/08/23 Unknown History tablet,extended release loperamide 2 mg capsule 4 mg PO Q6H PRN loose stool 04/08/23 Unknown History (Anti-Diarrheal (loperamide)) Lactobacillus acidophilus 20 20,000 mmu cells PO DAILY 07/02/23 Unknown History billion cell capsule (Florajen Acidophilus) chlorthalidone 25 mg tablet 25 mg PO DAILY 07/02/23 Unknown History hydrocodone-acetaminophen 5-325mg 1 tab PO Q6H PRN PRN Pain 3 days 08/07/23 Unknown Rx 5mg-325mg #10 TABLETS insulin degludec 200 unit/mL (3 10 unit subcut QHS 08/07/23 Unknown History mL) subcutaneous pen levothyroxine 50 mcg tablet 50 mcg PO DAILY 08/07/23 Unknown History memantine 5 mg tablet 5 mg PO BID 08/07/23 Unknown History ciprofloxacin HCl 500 mg tablet 500 mg PO BID 7 days #13 TABLETS 03/25/24 Unknown Rx diclofenac sodium 1 % topical gel 2 g topical TID PRN 03/25/24 Unknown History furosemide 20 mg tablet 20 mg PO DAILY 03/25/24 Unknown History hydrocortisone 1 % topical cream 1 applic topical Q12H PRN 03/25/24 Unknown His tory with perineal applicator hemorrhoids insulin lispro 100 unit/mL 1 sliding scale dose subcut UD 03/25/24 Unknown History subcutaneous pen (Humalog KwikPen (U-100) Insulin) lidocaine 5 % topical cream 1 applic topical BID PRN 03/25/24 Unknown History (AneCream5) hemorrhoids lidocaine 5 % topical cream 1 applic topical Q4H PRN pain 03/25/24 Unknown History (AneCream5) lorazepam 0.5 mg tablet 0.5 mg PO Q8H 03/25/24 Unknown History ondansetron 4 mg disintegrating 4 mg PO Q8H 03/25/24 Unknown History tablet oxycodone 5 mg tablet 5 mg PO Q8H PRN pain 03/25/24 Unknown History Allergy/AdvReac Type Severity Reaction Status Date / Time amoxicillin (From Augmentin) Allergy Severe Hives Verified 03/28/24 11:02 clavulanic acid (From Allergy Severe Hives Verified 03/28/24 11:02 Augmentin) sulfamethoxazole (From AdvReac Nausea Verified 03/28/24 11:02 Bactrim) trimethoprim (From Bactrim) AdvReac Nausea Verified 03/28/24 11:02 Surgical History S/P ORIF (open reduction internal fixation) fracture Social History (System 03/07/24 @ 10:54 by Elizabeth Alcantara) Smoking Status: Never smoker EXAM Physical Exam Const Vital Signs: 03/28/24 11:02 03/28/24 11:05 03/28/24 12:05 Temperature 97.4 F L 97.4 F L 98.7 F Temperature Source Temporal Temporal Oral Pulse Rate 63 64 61 Respiratory Rate 18 16 18 Blood Pressure 160/51 H 160/51 H 162/56 H Blood Pressure Mean 87 87 91 Pulse Ox 97 98 100 Oxygen Delivery Method Room Air Room Air Room Air 03/28/24 13:00 03/28/24 14:00 03/28/24 14:31 Temperature 98.9 F 97.5 F L 98.9 F Temperature Source Oral Temporal Pulse Rate 66 69 66 Respiratory Rate 18 20 H 18 Blood Pressure 172/59 H 182/59 H 165/135 H Blood Pressure Mean 96 100 145 Pulse Ox 100 100 100 Oxygen Delivery Method Room Air Room Air 03/28/24 15:00 03/28/24 15:51 03/28/24 15:59 Temperature 97.6 F L Temperature Source Temporal Pulse Rate 66 79 Respiratory Rate 17 Blood Pressure 187/57 H 201/71 H 188/102 H Blood Pressure Mean 100 114 130 Pulse Ox 100 Oxygen Delivery Method MDM MDM MDM Narrative Medical decision making narrative: 88-year-old female with history of aphasia, Alzheimer's dementia and a memory care unit presents for evaluation of altered mental status. Differential d iagnosis includes but is not limited to worsening dementia, UTI, metabolic encephalopathy, ADRIEL, ACS, electrolyte abnormality, failure to thrive. Patient is listed as comfort cares however family states that she is actually DNR/DNI. Long discussion was had in the room about the difference of the two as family was asking multiple questions and guidance was given. I told them to recontact their doctor about CODE STATUS discussion in the future. Patient does appear dry on physical exam NS bolus ordered. Broad workup ordered including CT head. On chart review, patient was seen in our ED on 03/25. She was diagnosed with mild dehydration and UTI. Was discharged home on ciprofloxacin. On chart review, patient's urine culture grew out Citrobacter freundii which is sensitive to ciprofloxacin which patient was placed on. EKG and chest x-ray reviewed see below. Lactic acid elevated at 2.3. Will give a dose of Levaquin given that we know she has a known UTI however suspect lactic acid is likely secondary to dehydration with her decreased p.o. intake. CBC with baseline pancytopenia. CMP shows baseline CKD. Creatinine improved mildly from 03/25. Patient is hyperglycemic at 286. Patient is a known diabetic. Has been having issues with glucose outpatient per family. No transaminitis. Troponin unremarkable. UA shows improvement in UTI. CT head without any acute intracranial process. Other than mild dehydration, patient laboratory results are at her baseline. On reexamination she appears to be at her neurological baseline now per family. I suspect all of her symptoms stem from end-stage dementia. However given patient's lactic acidosis, I did contact the hospitalist for admission for continued hydration given her poor p.o. intake. I spoke with Dr. Hammond. He agrees that lactic acidosis is likely secondary to dehydration. He recommends repeating the lactic acid as patient has received fluid. If normal recommends discharge home. Family was updated on this plan and confirmed understanding. Lactic acid was normal. IV no longer working to draw blood. Patient poked multiple times. Patient and family requesting no more lab draws. I did explained that without obtaining blood I cannot assess if her lactic acid resolved. Patient's granddaughter now in the room. Another family discussion was had with both family members about goals of care and mike p. Plan is to forego repeat lactic acid at this time and discharge home with outpatient family discussion with primary care physician about goals of care. I did speak to the patient's nursing facility and spoke to the nurse about my results. They are comfortable with her discharging back. I did reach out to the patient's primary care physician and updated him of my findings of mild dehydration. He agrees that patient is stable to discharge home. Suspect end- stage dementia as a cause of her symptoms as well. States that he will see her in the office this week to have a goals of care discussion. Despite all this family was educated on return precautions as well. Patient discharged home after she was given blood pressure medication. Patient is to continue her ciprofloxacin for UTI. EKG: Interpreted by me/EM physician: EKG shows normal sinus rhythm without any acute ischemic changes. Heart rate 61. Diagnostic: Interpreted by me/EM physician: Chest x-ray without pneumonia, effusion, cardiomegaly, pneumothorax. Per radiology,Increased linear markings suggestive of atelectasis or infiltrate. Patient is not having any sputum production. No fever or chills. No URI symptoms. Clinically patient does not present as a pneumonia Impression: 1. End-stage dementia 2. Mild dehydration 3. Failure to thrive 4. UTI, improving 5. Chronic pancytopenia 6. CKD Lab Data Labs: Laboratory Results - last 24 hr 03/28/24 03/28/24 03/28/24 11:13 12:29 13:24 WBC 3.2 L RBC 3.42 L Hgb 10.9 L Hct 34.2 L MCV 100.0 H MCH 31.9 MCHC 31.9 L RDW Std Deviation 52.4 H RDW Coeff of Beatrice 14.6 Plt Count 46 L* MPV 11.2 Immature Gran % (Auto) 0.000 Neut % (Auto) 77.4 H Lymph % (Auto) 17.4 L Maries % (Auto) 4.3 Eos % (Auto) 0.9 Baso % (Auto) 0.0 Absolute Neuts (auto) 2.5 Absolute Lymphs (auto) 0.56 L Nucleated RBC % 0 Diff Path Review May foll Plt Morphology Comment MKD Ovalocytes 1+ Sodium 139 Potassium 4.0 Chloride 108 H Carbon Dioxide 24.0 Anion Gap 7 BUN 29 H Creatinine 1.67 H Estim Creat Clear Calc 18.25 Est GFR (MDRD) Af Amer 37 L Est GFR (MDRD) Non-Af 31 L BUN/Creatinine Ratio 17.4 Glucose 286 H Lactic Acid 2.3 H* Calcium 10.1 Total Bilirubin 0.60 AST 27 ALT 27 Alkaline Phosphatase 130 H Troponin I High Sens 16 Total Protein 5.8 L Albumin 3.2 Globulin 2.6 Albumin/Globulin Ratio 1.2 Urine Color Yellow Urine Clarity Clear Urine pH 5.0 Ur Specific [place] 1.015 Urine Protein Negative Urine Glucose (UA) Normal Urine Ketones Negative Urine Occult Blood 150 H Urine Nitrite Negative Urine Bilirubin Negative Urine Urobilinogen Normal Ur Leukocyte Esterase 100 H Urine RBC 5-10 SEEN Urine WBC 0-5 SEEN Ur Squamous Epith Cells 0-5 SEEN Urine Bacteria 1+ Urine Mucus 0 SEEN POC Glucose 244 H Radiography Diagnostic Testing: Clinical Impression(s) from Imaging Studies Brain CT 03/28/24 12:13 IMPRESSION: Cerebral atrophy. IMPRESSION: No acute abnormality is seen. One or more dose reduction techniques were used (e.g., Automated exposure control, adjustment of the mA and/or kV according to patient size, use of iterative reconstruction technique). Reading Location: [facility]- Chest X-Ray 03/28/24 12:40 IMPRESSION: Increased linear markings in the right middle lobe suggestive of linear atelectasis and/or infiltrate. Reading Location: [facility]- Discharge Plan Triage Chief Complaint: Alt LOC ED Provider: Edmundo Ramos Dx/Rx/DC Orders Clinical Impression: Acute dehydration, Dementia, Adult failure to thrive Instructions: Caring for End-Stage Dementia, Understanding Dementia, Dehydration, ED CAREGIVER SUPPORT for DEMENTIA Prescriptions: No Action allopurinol 300 MG tablet 300 mg PO DAILY atorvastatin 40 MG tablet 40 mg PO DAILY metoprolol tartrate 50 MG tablet 50 mg PO BID sertraline 50 MG tablet 50 mg PO QHS colchicine 0.6 MG tablet 0.3 mg PO DAILY cephalexin 250 mg capsule 250 mg PO DAILY cholestyramine (with sugar) 4 gram powder in packet 1 ea PO DAILY ferrous sulfate [Feosol] 325 mg (65 mg iron) tablet 325 mg PO DAILY ascorbic acid (vitamin C) [Vitamin C] 500 mg tablet 500 mg PO BID cholecalciferol (vitamin D3) [Vitamin D3] 125 mcg (5,000 unit) tablet 5,000 unit PO DAILY acetaminophen 650 mg tablet extended release 650 mg PO Q8H PRN (Reason: fever or pain) loperamide [Anti-Diarrheal (loperamide)] 2 mg capsule 4 mg PO Q6H PRN (Reason: loose stool) Patient Comments: AFTER EACH LOOSE STOOL. MAX DOSE 8 CAPSULES DAILY levothyroxine 50 mcg tablet 50 mcg PO DAILY memantine 5 mg tablet 5 mg PO BID insulin degludec 200 unit/mL (3 mL) insulin pen 10 unit subcut QHS hydrocodone-acetaminophen 5-325 mg tablet 1 tab PO Q6H PRN PRN (Reason: Pain) 3 Days Qty: 10 0RF chlorthalidone 25 mg tablet 25 mg PO DAILY Florajen Acidophilus 20 billion cell capsule 20,000 mmu cells PO DAILY furosemide 20 mg tablet 20 mg PO DAILY insulin lispro [Humalog KwikPen Insulin] 100 unit/mL insulin pen 1 sliding scale dose SUBCUT UD Patient Comments: INJECT SUBCUTANEOUSLY PER SLIDING SCALE. GLUCOSE < 150 0 UNITS, 150-199 1 UNIT, 200-249 3 UNITS, 250-299 5 UNITS, 300-349 7 UNITS, >349 8 UN diclofenac sodium 1 % gel 2 g topical TID PRN hydrocortisone 1 % cream with perineal applicator 1 applic topical Q12H PRN (Reason: hemorrhoids) lorazepam 0.5 mg tablet 0.5 mg PO Q8H Patient Comments: [NO ORIGINAL SIG] lidocaine [AneCream5] 5 % cream 1 applic topical BID PRN (Reason: hemorrhoids) lidocaine [AneCream5] 5 % cream 1 applic topical Q4H PRN (Reason: pain) Rx Instructions: face oxycodone 5 mg tablet 5 mg PO Q8H PRN (Reason: pain) ondansetron 4 mg tablet,disintegrating 4 mg PO Q8H ciprofloxacin HCl 500 mg tablet 500 mg PO BID 7 Days Qty: 13 0RF Primary Care Provider: Sneha Mabry Referrals: Sneha Mabry MD [Primary Care Provider] - 3-5 Days Activity Restrictions/Additional Instructions: Return back to the ED if symptoms change or worsen. Call the patient's primary care physician to have her reevaluated in their office this week. They would like to have a family discussion about goals of care. Continue antibiotic for previous UTI. Print Language: Occitan Disposition Disposition: Home, Self Care
[2024-03-28 12:37] LABS: Absolute Lymphocyte Count 0.56 X10^3/uL (0.83-4.51); Absolute Neutrophil Count 2.5 X10^3/uL (2.0-7.7); Eosinophil# 0.03 X10^3/uL; Eosinophils% 0.9 % (0-5); Hematocrit 34.2 % (37-47); Hemoglobin 10.9 g/dL (12.0-15.0); Lymphocyte # 0.56 X10^3/ul (0.83-4.51); Lymphocyte % 17.4 % (19-41); Mean Corp Hgb Conc 31.9 g/dL (32-36); Mean Corpuscular Hgb 31.9 pg (27.0-32.0); Mean Platelet Vol. 11.2 fl (6.2-12.0); Monocyte# 0.14 X10^3/uL; Monocyte% 4.3 % (0-10); NRBC Flagged by Analyzer 0 % (0-5); Neutrophil # 2.49 X10^3/uL (2.7-7.7); Neutrophil % 77.4 % (47-70); POSITIVE COUNT YES; POSITIVE DIFFERENTIAL YES; RBC Distribution Width CV 14.6 % (11.6-14.6); RBC Distribution Width SD 52.4 fl (35.1-43.9); Red Blood Count 3.42 M/mm3 (4.2-5.4); White Blood Count 3.2 K/mm3 (4.4-11.0)
--- NOTE | 2024-03-28 12:40 | RAD_ITS ---
PROCEDURE: Chest AP and lateral. REASON FOR EXAM: Chest pain. TECHNIQUE: Frontal and lateral views of the chest. COMPARISON: Comparison is made with prior study dated November 13, 2023. FINDINGS: EKG electrodes are seen. The heart size is normal. The mediastinal contour is unremarkable. Increased linear markings in the right middle lobe suggestive of possible atelectasis and/or early in filtrate. Degenerative changes are identified within the thoracic spine. RAD/Chest PA and Lateral IMPRESSION: Increased linear markings in the right middle lobe suggestive of linear atelect asis and/or infiltrate. Reading Location: [facility]
[2024-03-28 12:47] LABS: Bedside Glucose 244 mg/dL (74-106)
[2024-03-28 12:59] LABS: Lactic Acid 2.3 mmol/L (0.4-1.9)
[2024-03-28 13:07] LABS: ALB/GLOB Ratio 1.2 RATIO (0.9-2.4); AST(SGOT) 27 U/L (15-37); Alanine Aminotransfer ALT/SGPT 27 U/L (13-56); Albumin, Serum 3.2 g/dL (3.2-5.0); Alkaline Phosphatase 130 U/L (45-117); Anion Gap 7 (5-15); BUN 29 mg/dL (7-18); BUN/Creat Ratio 17.4 RATIO (10-20); Calcium,Total 10.1 mg/dL (8.5-10.1); Chloride 108 mmol/L (98-107); Creatinine, Serum 1.67 mg/dL (0.55-1.02); EST Glomerular Filtration Rate 31 mL/min (>60); Est Glom Filt Rate - Afr Amer 37 mL/min (>60); Estimated Creatinine Clearance 18.25 ml/min; Globulin 2.6 g/dL (2.2-4.2); Glucose 286 mg/dL (74-106); Protein, Total 5.8 g/dL (6.4-8.2); Sodium Level 139 mmol/L (136-145); Troponin-I HS (w/2H Reflex) 16 pg/mL (3.0-54.0)
[2024-03-28 13:28] LABS: Mucous, Urine 0 SEEN /hpf (<or=2+)
[2024-03-28 13:31] LABS: Platelet Count 46 K/mm3 (150-450)
[2024-03-28 13:32] LABS: Platelet Morphology MKD
[2024-03-28 13:33] LABS: Ovalocyte 1+
[2024-03-28 13:45] LABS: Color, Urine Yellow (Yellow); Glucose, Dipstick Normal (Normal); Ketone-Dipstick Negative (Negative); Leukocyte Esterase-Dipstick 100 /ul (Negative); Nitrite-Dipstick Negative (Negative); Occult Blood-Urine 150 /ul (Negative); Protein-Dipstick Negative (Negative); Specific Gravity, Urine 1.015 (1.002-1.030); Urine Bilirubin Dipstick Negative (Negative); Urine Clarity Clear (Clear); Urine Urobilinogen Normal (Normal)
[2024-03-28] MEDS: levoFLOXacin IV 750 MG/150 ML BAG 100 MG IV (13:49)
[2024-03-28 13:57] LABS: Red Blood Cells-Urine 5-10 SEEN /hpf (0-5); White Blood Cells 0-5 SEEN /hpf (0-5)
[2024-03-28 13:58] LABS: Bacteria 1+ /hpf (None Seen); Squamous Epithelial Cells - UA 0-5 SEEN /hpf (5-10)
[2024-03-28 14:22] LABS: Reflex Troponin-HS? (from REC) Y
[2024-03-28] MEDS: Phenazopyridine 95 MG Tablet PO (15:57)
[2024-03-28] MEDS: hydrALAZINE 20 MG/ML Vial 10 MG IV (15:57)
[2024-03-28 16:41] LABS: Reflex Lactate? Y
[2024-03-29 14:24] LABS: Pathologist Review Reviewed
== END 2024-03-28 16:26 | disposition home or self-care (01) ==
PROVIDERS: Emergency Provider Surgery; Visit Provider Surgery
DX: E86.0 Dehydration (principal); D61.818 Other pancytopenia; F02.80 Dementia in other diseases classified elsewhere, unspecified severity, without behavioral disturbance, psychotic disturbance, mood disturbance, and anxiety; G30.9 Alzheimer's disease, unspecified; E11.22 Type 2 diabetes mellitus with diabetic chronic kidney disease; R62.7 Adult failure to thrive; N18.9 Chronic kidney disease, unspecified; N39.0 Urinary tract infection, site not specified; R55 Syncope and collapse
CPT/HCPCS: 70450; 71046; 80053; 81001; 82962; 83605; 84484; 85025; 87631; 93005; 96361; 96365; 96366; 96375; 99285; A4216

== ENCOUNTER 2024-07-08 19:10 | Emergency (ER) | payer MEDICARE, OTHER, SELFPAY ==
[2024-07-08 19:10] VITALS: BP 158/55; PULSE 58; RESP 18; TEMP 36.4; O2SAT 100; BMI 22.3
--- NOTE | 2024-07-08 19:20 | RAD_ITS ---
PROCEDURE: HIP, UNI W/ PELVIS 2-3 VIEWS 07/08/2024 REASON FOR EXAM: PAIN TECHNIQUE: Three views of the left hip COMPARISON: 08/07/2023 FINDINGS: Stable postoperative changes left femoral intramedullary leoncio fixation. Hardware is intact. No acute fracture or dislocation. Moderate osteoarthritis. Diffuse osteopenia. Degenerative changes of the right hip and bilateral SI joints, as well as the imaged lower lumbar spine. Moderate colonic stool. RAD/HIP, UNI W/ Pelvis 2-3 Views IMPRESSION: No acute fracture or dislocation. Other findings as described above. Reading Location: [facility]
--- NOTE | 2024-07-08 19:23 | EX.ED.DYSGE1 ---
HPI <BRENDA Lobo - Last Filed: 07/08/24 21:29> History of Present Illness Chief Complaint: Lower Extremity Injury Narrative Narrative: 88-year-old female with history of Alzheimer's dementia and aphasia presents from [facility] care unit presents after an unwitnessed fall. She has a skin tear to her left elbow and left hip pain. She has significant aphasia from her end-stage dementia but can sometimes say yes or no to questions. She ambulates with a walker and was found on the floor in her room. She has a history of a left hip replacement. Her daughter states she was started on hospice in March 2024 and is DNR CC. [facility] <BRENDA Lobo - Last Filed: 07/08/24 21:29> [facility] Medical History (Updated 07/08/24 @ 19:59 by BRENDA Lobo) Displaced intertrochanteric fracture of left femur, initial encounter for closed fracture Retention of urine, unspecified Other ascites Chronic kidney disease, stage 4 (severe) Gout, unspecified Gastro-esophageal reflux disease without esophagitis Old myocardial infarction Insomnia, unspecified Essential (primary) hypertension Depression, unspecified Dementia in other diseases classified elsewhere, unspecified severity, without behavioral disturbance, psychotic disturbance, mood disturbance, and anxiety Type 2 diabetes mellitus without complications Hypothyroidism, unspecified Thrombocytopenia, unspecified Other pancytopenia Debility History of squamous cell carcinoma of skin Skin ulcer of face with fat layer exposed Open facial wound Non-healing surgical wound Open wound of left forearm Home Medications ?Medication ?Instructions ?Recorded ?Last Taken ?Type allopurinol 300 mg tablet 300 mg PO DAILY 06/13/16 Unknown History atorvastatin 40 mg tablet 40 mg PO DAILY 11/12/17 Unknown History colchicine 0.6 mg capsule 0.3 mg PO DAILY 11/12/17 Unknown History metoprolol tartrate 50 mg tablet 50 mg PO BID 11/12/17 Unknown History sertraline 50 mg tablet 50 mg PO QHS 11/12/17 Unknown History ascorbic acid (vitamin C) 500 mg 500 mg PO BID 03/19/23 Unknown History tablet (Vitamin C) cephalexin 250 mg capsule 250 mg PO DAILY 03/19/23 Unknown History cholecalciferol (vitamin D3) 125 5,000 unit PO DAILY 03/19/23 Unknown History mcg (5,000 unit) tablet (Vitamin D3) cholestyramine (with sugar) 4 gram 1 ea PO DAILY 03/19/23 Unknown History powder for susp in a packet ferrous sulfate 325 mg (65 mg 325 mg PO DAILY 03/19/23 Unknown History iron) tablet (Feosol) acetaminophen 650 mg 650 mg PO Q8H PRN fever or pain 04/08/23 Unknown History tablet,extended release loperamide 2 mg capsule 4 mg PO Q6H PRN loose stool 04/08/23 Unknown History (Anti-Diarrheal (loperamide)) Lactobacillus acidophilus 20 20,000 mmu cells PO DAILY 07/02/23 Unknown History billion cell capsule (Florajen Acidophilus) chlorthalidone 25 mg tablet 25 mg PO DAILY 07/02/23 Unknown History hydrocodone-acetaminophen 5-325mg 1 tab PO Q6H PRN PRN Pain 3 days 08/07/23 Unknown Rx 5mg-325mg #10 TABLETS insulin degludec 200 unit/mL (3 10 unit subcut QHS 08/07/23 Unknown History mL) subcutaneous pen levothyroxine 50 mcg tablet 50 mcg PO DAILY 08/07/23 Unknown History memantine 5 mg tablet 5 mg PO BID 08/07/23 Unknown History diclofenac sodium 1 % topical gel 2 g topical TID PRN 03/25/24 Unknown History furosemide 20 mg tablet 20 mg PO DAILY 03/25/24 Unknown History hydrocortisone 1 % topical cream 1 applic topical Q12H PRN 03/25/24 Unknown History with perineal applicator hemorrhoids insulin lispro 100 unit/mL 1 sliding scale dose subcut UD 03/25/24 Unknown History subcutaneous pen (Humalog KwikPen (U-100) Insulin) lidocaine 5 % topical cream 1 applic topical BID PRN 03/25/24 Unknown History (AneCream5) hemorrhoids lidocaine 5 % topical cream 1 applic topical Q4H PRN pain 03/25/24 Unknown History (AneCream5) lorazepam 0.5 mg tablet 0.5 mg PO Q8H 03/25/24 Unknown History ondansetron 4 mg disintegrating 4 mg PO Q8H 03/25/24 Unknown History tablet oxycodone 5 mg tablet 5 mg PO Q8H PRN pain 03/25/24 Unknown History Allergy/AdvReac Type Severity Reaction Status Date / Time amoxicillin (From Augmentin) Allergy Severe Hives Verified 07/08/24 19:11 clavulanic acid (From Allergy Severe Hives Verified 07/08/24 19:11 Augmentin) sulfamethoxazole (From AdvReac Nausea Verified 07/08/24 19:11 Bactrim) trimethoprim (From Bactrim) AdvReac Nausea Verified 07/08/24 19:11 Surgical History S/P ORIF (open reduction internal fixation) fracture Social History (System 03/07/24 @ 10:54 by Elizabeth Alcantara) Smoking Status: Never smoker ROS <BRENDA Lobo - Last Filed: 07/08/24 21:29> ROS ED ROS Narrative Unable to obtain due to dementia EXAM <BRENDA Lobo - Last Filed: 07/08/24 21:29> Physical Exam Narrative Exam Narrative: CONST: Patient sitting in bed with her eyes closed and no acute distress EYES: Normal inspection. NECK: Normal inspection. RESP: No respiratory distress, CTAB. CVS: Regular rate and rhythm, no murmur, no gallop. ABD: Soft and nontender, no guarding or rebound, nondistended. EXTREMITIES: Tiny abrasion left elbow. No swelling or deformity or crepitus, full passive shoulder elbow and wrist range of motion. 2+ radial pulses. Pelvis stable, no grimacing or signs of pain with palpation of the lower extremities, 2+ DP pulses. NEURO: Awake, makes garbled sounds when asked a question (baseline). PSYCH: Normal affect. Const Vital Signs: 07/08/24 19:10 07/08/24 20:47 Temperature 97.6 F L 97.8 F Temperature Source Temporal Pulse Rate 58 L 59 L Respiratory Rate 18 18 Blood Pressure 158/55 H 148/86 H Blood Pressure Mean 89 106 Pulse Ox 100 99 Oxygen Delivery Method Room Air <Dr. Walter Summers MD - Last Filed: 07/08/24 22:21> Physical Exam Const Vital Signs: 07/08/24 19:10 07/08/24 20:47 Temperature 97.6 F L 97.8 F Temperature Source Temporal Pulse Rate 58 L 59 L Respiratory Rate 18 18 Blood Pressure 158/55 H 148/86 H Blood Pressure Mean 89 106 Pulse Ox 100 99 Oxygen Delivery Method Room Air MDM <BRENDA Lobo - Last Filed: 07/08/24 21:29> [facility] Narrative Medical decision making narrative: History gathered from: Patient's daughter states she is aphasic from dementia 88-year-old female had an unwitnessed fall at her memory care unit. She is at baseline with advanced dementia and is aphasic. Occasionally she makes some garbled speech sounds. She is in no distress. Vital signs are stable. She has no signs of head injury. Chest stable, normal heart lung sounds. Abdomen soft and nontender. Pelvis stable. There is a small left elbow skin tear. No neurovascular deficits noted. Left elbow and left hip x-ray are negative. She was given Tylenol and will be discharged back to the facility. I have personally performed a face to face assessment of the patient and have reviewed the DIANA Note. I performed a substantive portion of the visit including all aspects of the following. My villalpando findings include: History is remarkable for fall. Patient not a good informant due to dementia. She complains of elbow and hip pain. Exam is patient has no neurovasc Otomize of the upper or lower extremity. Will obtain x-ray to assess for contusion versus periprosthetic fracture of the hip and x-ray of the elbow to evaluate for contusion versus fracture versus fracture dislocation versus dislocation. Medical Decision Making x-rays were dependently reviewed interpreted by me. This was documented under the radiology portion of the EMR. Other additions or changes: Treatment is symptomatic ice. Radiography Diagnostic Testing: Clinical Impression(s) from Imaging Studies Hip/Pelvis X-Ray 07/08/24 19:20 IMPRESSION: No acute fracture or dislocation. Other findings as described above. Reading Location: [facility] Elbow X-Ray 07/08/24 19:40 IMPRESSION: No acute fracture or dislocation. Reading Location: [facility] ED attending interpretation of left hip shows left hip hardware intact, no acute fracture or dislocation. ED attending interpretation of left elbow shows no fracture or dislocation. <Dr. Walter Summers MD - Last Filed: 07/08/24 22:21> [facility] Narrative Medical decision making narrative: I have personally performed a face to face assessment of the patient and have reviewed the DIANA Note. I performed a substantive portion of the visit including all aspects of the following. My villalpando findings include: History is remarkable for fall. Patient not a good informant due to dementia. She complains of elbow and hip pain. Exam is patient has no neurovasc Otomize of the upper or lower extremity. Will obtain x-ray to assess for contusion versus periprosthetic fracture of the hip and x-ray of the elbow to evaluate for contusion versus fracture versus fracture dislocation versus dislocation. Medical Decision Making x-rays were dependently reviewed interpreted by me. This was documented under the radiology portion of the EMR. Other additions or changes: Treatment is symptomatic ice. Radiography Chest X-Ray - ED: Read by ED Physician (Three-view x-ray of the elbow and three-view x-ray of the hip were obtained. The elbow x-ray reveals glucose monitoring device. There is no fracture, subluxation or dislocation. There is no anterior or posterior fat pad noted either. The three-view x-ray of the hip independent reviewed interpret) Diagnostic Testing: Clinical Impression(s) from Imaging Studies Hip/Pelvis X-Ray 07/08/24 19:20 IMPRESSION: No acute fracture or dislocation. Other findings as described above. Reading Location: [facility] Elbow X-Ray 07/08/24 19:40 IMPRESSION: No acute fracture or dislocation. Reading Location: [facility] Discharge Plan Triage Chief Complaint: Lower Extremity Injury ED Midlevel Provider: Elizabet Thomas ED Provider: Walter Summers Dx/Rx/DC Orders Clinical Impression: Fall, Skin tear of left elbow without complication, Contusion of hip, left, Dementia Instructions: Bruises (Contusions) Prescriptions: No Action allopurinol 300 MG tablet 300 mg PO DAILY atorvastatin 40 MG tablet 40 mg PO DAILY metoprolol tartrate 50 MG tablet 50 mg PO BID sertraline 50 MG tablet 50 mg PO QHS colchicine 0.6 MG tablet 0.3 mg PO DAILY cephalexin 250 mg capsule 250 mg PO DAILY cholestyramine (with sugar) 4 gram powder in packet 1 ea PO DAILY ferrous sulfate [Feosol] 325 mg (65 mg iron) tablet 325 mg PO DAILY ascorbic acid (vitamin C) [Vitamin C] 500 mg tablet 500 mg PO BID cholecalciferol (vitamin D3) [Vitamin D3] 125 mcg (5,000 unit) tablet 5,000 unit PO DAILY acetaminophen 650 mg tablet extended release 650 mg PO Q8H PRN (Reason: fever or pain) loperamide [Anti-Diarrheal (loperamide)] 2 mg capsule 4 mg PO Q6H PRN (Reason: loose stool) Patient Comments: AFTER EACH LOOSE STOOL. MAX DOSE 8 CAPSULES DAILY levothyroxine 50 mcg tablet 50 mcg PO DAILY memantine 5 mg tablet 5 mg PO BID insulin degludec 200 unit/mL (3 mL) insulin pen 10 unit subcut QHS hydrocodone-acetaminophen 5-325 mg tablet 1 tab PO Q6H PRN PRN (Reason: Pain) 3 Days Qty: 10 0RF chlorthalidone 25 mg tablet 25 mg PO DAILY Florajen Acidophilus 20 billion cell capsule 20,000 mmu cells PO DAILY furosemide 20 mg tablet 20 mg PO DAILY insulin lispro [Humalog KwikPen Insulin] 100 unit/mL insulin pen 1 sliding scale dose SUBCUT UD Patient Comments: INJECT SUBCUTANEOUSLY PER SLIDING SCALE. GLUCOSE < 150 0 UNITS, 150-199 1 UNIT, 200-249 3 UNITS, 250-299 5 UNITS, 300-349 7 UNITS, >349 8 UN diclofenac sodium 1 % gel 2 g topical TID PRN hydrocortisone 1 % cream with perineal applicator 1 applic topical Q12H PRN (Reason: hemorrhoids) lorazepam 0.5 mg tablet 0.5 mg PO Q8H Patient Comments: [NO ORIGINAL SIG] lidocaine [AneCream5] 5 % cream 1 applic topical BID PRN (Reason: hemorrhoids) lidocaine [AneCream5] 5 % cream 1 applic topical Q4H PRN (Reason: pain) Rx Instructions: face oxycodone 5 mg tablet 5 mg PO Q8H PRN (Reason: pain) ondansetron 4 mg tablet,disintegrating 4 mg PO Q8H Primary Care Provider: Sneha Mabry Referrals: Franky Esqueda DO [Non-Staff] - Activity Restrictions/Additional Instructions: X-rays of the left elbow and left hip show no fracture or dislocation. Give Tylenol as needed for pain. Print Language: Czech Disposition Disposition: Home, Self Care Discharge Date/Time: 07/08/24 20:47
[2024-07-08] MEDS: Acetaminophen 325 MG Tablet 650 MG PO (19:26)
--- NOTE | 2024-07-08 19:40 | RAD_ITS ---
PROCEDURE: ELBOW MIN 3 VIEWS 07/08/2024 REASON FOR EXAM: FALL TECHNIQUE: 3 view(s) of the left elbow. COMPARISON: None FINDINGS: No acute fracture or dislocation. Joint spaces are maintained. No joint effusion. No significant soft tissue swelling. RAD/Elbow min 3 Views IMPRESSION: No acute fracture or dislocation. Reading Location: [facility]
[2024-07-08 20:47] VITALS: BP 148/86; PULSE 59; RESP 18; TEMP 36.6; O2SAT 99
== END 2024-07-08 20:47 | disposition home or self-care (01) ==
PROVIDERS: Emergency Provider Emergency Medicine; PCP Family Medicine; Visit Provider Emergency Medicine
DX: S51.012A Laceration without foreign body of left elbow, initial encounter (principal); N18.4 Chronic kidney disease, stage 4 (severe); F02.80 Dementia in other diseases classified elsewhere, unspecified severity, without behavioral disturbance, psychotic disturbance, mood disturbance, and anxiety; G30.9 Alzheimer's disease, unspecified; E11.22 Type 2 diabetes mellitus with diabetic chronic kidney disease; R47.01 Aphasia; M25.522 Pain in left elbow; I12.9 Hypertensive chronic kidney disease with stage 1 through stage 4 chronic kidney disease, or unspecified chronic kidney disease; E03.9 Hypothyroidism, unspecified; S70.02XA Contusion of left hip, initial encounter; W18.30XA Fall on same level, unspecified, initial encounter; Y92.092 Bedroom in other non-institutional residence as the place of occurrence of the external cause
CPT/HCPCS: 73080; 73502; 99284

== ENCOUNTER → 2024-08-29 | Outpatient (REF) | payer MEDICARE, OTHER, SELFPAY ==
[2024-08-29 09:56] LABS: Mucous, Urine 0 SEEN /hpf (<or=2+); Squamous Epithelial Cells - UA 0 SEEN /hpf (5-10)
[2024-08-29 10:55] LABS: Color, Urine Yellow (Yellow); Glucose, Dipstick Normal (Normal); Ketone-Dipstick Negative (Negative); Leukocyte Esterase-Dipstick 500 /ul (Negative); Nitrite-Dipstick Negative (Negative); Occult Blood-Urine 150 /ul (Negative); Protein-Dipstick 30 mg/dl (Negative); Specific Gravity, Urine 1.015 (1.002-1.030); Urine Bilirubin Dipstick Negative (Negative)
[2024-08-29 12:32] LABS: Red Blood Cells-Urine 0-5 SEEN /hpf (0-5)
== END ==
LOC: OLS.BROOKB 04:00
PROVIDERS: PCP Family Medicine; Visit Provider Nurse Practitioner Primary Care
DX: N39.0 Urinary tract infection, site not specified (principal); R30.0 Dysuria
CPT/HCPCS: 81001; 87077; 87086; 87088; 87186

== ENCOUNTER 2024-09-06 18:02 | Emergency (ER) | payer MEDICARE, OTHER, SELFPAY ==
[2024-09-06 18:02] VITALS: BP 121/104; PULSE 58; RESP 20; TEMP 36.7; O2SAT 100; BMI 27.3
[2024-09-06 18:06] VITALS: BP 156/72; PULSE 62; RESP 19; O2SAT 96; O2SAT 98
--- NOTE | 2024-09-06 18:28 | EX.ED.GENINJ ---
HPI History of Present Illness Chief Complaint: Fall Detail of Chief Complaint: Unwitnessed fall with head trauma and skin injury to the right popliteal fo Informant: family and SNF Onset/Context/Timing Onset: Today Mechanism/Context: Blunt Injury and Fall Location of pain/injuries: - (Patient nonverbal) Quality of Pain: - (Unable to determine) Location: Unable to determine Current Severity: Unable to determine Maximum Severity: Unable to determine Worsened by: Unknown Relieved by: Unknown Associated Symptoms Associated Symptoms: Positive for - (Unknown) Narrative Narrative: Patient is an 88-year-old woman. She is in hospice. She has a signed DNR comfort care. Spoke to family who is present. They confirm she is DNR comfort care. They said she is not a neurosurgical candidate therefore CAT scan was not obtained and they understand and are in agreement. Patient has been doing poorly the past 24 hours. Patient presents by ambulance status post fall. She is DNR comfort care only. Prior similar symptoms: Yes Recent Illness/Hospitalization: No [facility] Medical History Displaced intertrochanteric fracture of left femur, initial encounter for closed fracture Retention of urine, unspecified Other ascites Chronic kidney disease, stage 4 (severe) Gout, unspecified Gastro-esophageal reflux disease without esophagitis Old myocardial infarction Insomnia, unspecified Essential (primary) hypertension Depression, unspecified Dementia in other diseases classified elsewhere, unspecified severity, without behavioral disturbance, psychotic disturbance, mood disturbance, and anxiety Type 2 diabetes mellitus without complications Hypothyroidism, unspecified Thrombocytopenia, unspecified Other pancytopenia Debility History of squamous cell carcinoma of skin Skin ulcer of face with fat layer exposed Open facial wound Non-healing surgical wound Open wound of left forearm Home Medications ?Medication ?Instructions ?Recorded ?Last Taken ?Type allopurinol 300 mg tablet 300 mg PO DAILY 06/13/16 Unknown History atorvastatin 40 mg tablet 40 mg PO DAILY 11/12/17 Unknown History colchicine 0.6 mg capsule 0.3 mg PO DAILY 11/12/17 Unknown History metoprolol tartrate 50 mg tablet 50 mg PO BID 11/12/17 Unknown History sertraline 50 mg tablet 50 mg PO QHS 11/12/17 Unknown History ascorbic acid (vitamin C) 500 mg 500 mg PO BID 03/19/23 Unknown History tablet (Vitamin C) cephalexin 250 mg capsule 250 mg PO DAILY 03/19/23 Unknown History cholecalciferol (vitamin D3) 125 5,000 unit PO DAILY 03/19/23 Unknown History mcg (5,000 unit) tablet (Vitamin D3) cholestyramine (with sugar) 4 gram 1 ea PO DAILY 03/19/23 Unknown History powder for susp in a packet ferrous sulfate 325 mg (65 mg 325 mg PO DAILY 03/19/23 Unknown History iron) tablet (Feosol) acetaminophen 650 mg 650 mg PO Q8H PRN fever or pain 04/08/23 Unknown History tablet,extended release loperamide 2 mg capsule 4 mg PO Q6H PRN loose stool 04/08/23 Unknown History (Anti-Diarrheal (loperamide)) Lactobacillus acidophilus 20 20,000 mmu cells PO DAILY 07/02/23 Unknown History billion cell capsule (Florajen Acidophilus) chlorthalidone 25 mg tablet 25 mg PO DAILY 07/02/23 Unknown History hydrocodone-acetaminophen 5-325mg 1 tab PO Q6H PRN PRN Pain 3 days 08/07/23 Unknown Rx 5mg-325mg #10 TABLETS insulin degludec 200 unit/mL (3 10 unit subcut QHS 08/07/23 Unknown History mL) subcutaneous pen levothyroxine 50 mcg tablet 50 mcg PO DAILY 08/07/23 Unknown History memantine 5 mg tablet 5 mg PO BID 08/07/23 Unknown History diclofenac sodium 1 % topical gel 2 g topical TID PRN 03/25/24 Unknown History furosemide 20 mg tablet 20 mg PO DAILY 03/25/24 Unknown History hydrocortisone 1 % topical cream 1 applic topical Q12H PRN 03/25/24 Unknown History with perineal applicator hemorrhoids insulin lispro 100 unit/mL 1 sliding scale dose subcut UD 03/25/24 Unknown History subcutaneous pen (Humalog KwikPen (U-100) Insulin) lidocaine 5 % topical cream 1 applic topical BID PRN 03/25/24 Unknown History (AneCream5) hemorrhoids lidocaine 5 % topical cream 1 applic topical Q4H PRN pain 03/25/24 Unknown History (AneCream5) lorazepam 0.5 mg tablet 0.5 mg PO Q8H 03/25/24 Unknown History ondansetron 4 mg disintegrating 4 mg PO Q8H 03/25/24 Unknown History tablet oxycodone 5 mg tablet 5 mg PO Q8H PRN pain 03/25/24 Unknown History Allergy/AdvReac Type Severity Reaction Status Date / Time amoxicillin (From Augmentin) Allergy Severe Hives Verified 09/06/24 18:05 clavulanic acid (From Allergy Severe Hives Verified 09/06/24 18:05 Augmentin) sulfamethoxazole (From AdvReac Nausea Verified 09/06/24 18:05 Bactrim) trimethoprim (From Bactrim) AdvReac Nausea Verified 09/06/24 18:05 Surgical History S/P ORIF (open reduction internal fixation) fracture Social History housing: long-term Smoking Status: Never smoker ROS ROS ED Review of Systems ROS Unobtainable: due to mental status and other Details: Presently nonverbal per daughter EXAM Physical Exam Const Vital Signs: 09/06/24 18:02 09/06/24 18:06 09/06/24 18:06 Temperature 98.1 F Temperature Source Temporal Pulse Rate 58 L 62 Respiratory Rate 20 H 19 H Respiratory Effort Normal Non-Labored Respiratory Depth Normal Respiratory Pattern Normal Blood Pressure 121/104 H 156/72 H Blood Pressure Mean 109 100 Pulse Ox 100 96 98 Oxygen Delivery Method Room Air Room Air Positive well nourished and well developed General Appearance ED: well developed and NAD HEENT HEENT Narrative: Patient has a large occipital hematoma there is no clinical signs of basilar skull fracture. trauma Eyes PERRL and EOMs intact bilaterally General Eye ED: Yes other Other Details: There is no subconjunctival hemorrhage. There is no nystagmus. Neck full ROM General: Negative for tenderness Chest Wall inspection of chest normal and palpation of chest normal Resp normal respiratory effort Cardio regular rhythm and S1 normal heart sound Extremity Negative for normal to inspection Extremity Narrative: Skin tear x 2 approximately 1 cm each left calf no sign of infection. Skin tear right popliteal fossa that is a total of 3 cm in length. There is no active bleeding or evidence of infection Neuro No oriented x3 [place] Coma Scale: document GCS findings None Localizes to Pain None 7 Sensorium / Orientation: Negative for alert Plantar Reflex: Downgoing: bilateral Psych Psych Narrative: Unable to determine Skin Skin Narrative: Documented under the extremity portion of the EMR MDM MDM MDM Narrative Medical decision making narrative: Confirmed the patient is DNR comfort care only. Therefore no imaging or laboratory tests will be done. Initial clean wounds and will return patient to nursing facility Discharge Plan Triage Chief Complaint: Fall ED Provider: Walter Summers Dx/Rx/DC Orders Clinical Impression: Contusion of occipital region of scalp, Closed head injury, ISTAP type 1 skin tear of left lower leg, ISTAP type 1 skin tear of right lower extremity, DNR (do not resuscitate) discussion, DNR no code (do not resuscitate) Instructions: ED Scalp Contusion, ED Laceration Superficial No Stitch Prescriptions: No Action allopurinol 300 MG tablet 300 mg PO DAILY atorvastatin 40 MG tablet 40 mg PO DAILY metoprolol tartrate 50 MG tablet 50 mg PO BID sertraline 50 MG tablet 50 mg PO QHS colchicine 0.6 MG tablet 0.3 mg PO DAILY cephalexin 250 mg capsule 250 mg PO DAILY cholestyramine (with sugar) 4 gram powder in packet 1 ea PO DAILY ferrous sulfate [Feosol] 325 mg (65 mg iron) tablet 325 mg PO DAILY ascorbic acid (vitamin C) [Vitamin C] 500 mg tablet 500 mg PO BID cholecalciferol (vitamin D3) [Vitamin D3] 125 mcg (5,000 unit) tablet 5,000 unit PO DAILY acetaminophen 650 mg tablet extended release 650 mg PO Q8H PRN (Reason: fever or pain) loperamide [Anti-Diarrheal (loperamide)] 2 mg capsule 4 mg PO Q6H PRN (Reason: loose stool) Patient Comments: AFTER EACH LOOSE STOOL. MAX DOSE 8 CAPSULES DAILY levothyroxine 50 mcg tablet 50 mcg PO DAILY memantine 5 mg tablet 5 mg PO BID insulin degludec 200 unit/mL (3 mL) insulin pen 10 unit subcut QHS hydrocodone-acetaminophen 5-325 mg tablet 1 tab PO Q6H PRN PRN (Reason: Pain) 3 Days Qty: 10 0RF chlorthalidone 25 mg tablet 25 mg PO DAILY Florajen Acidophilus 20 billion cell capsule 20,000 mmu cells PO DAILY furosemide 20 mg tablet 20 mg PO DAILY insulin lispro [Humalog KwikPen Insulin] 100 unit/mL insulin pen 1 sliding scale dose SUBCUT UD Patient Comments: INJECT SUBCUTANEOUSLY PER SLIDING SCALE. GLUCOSE < 150 0 UNITS, 150-199 1 UNIT, 200-249 3 UNITS, 250-299 5 UNITS, 300-349 7 UNITS, >349 8 UN diclofenac sodium 1 % gel 2 g topical TID PRN hydrocortisone 1 % cream with perineal applicator 1 applic topical Q12H PRN (Reason: hemorrhoids) lorazepam 0.5 mg tablet 0.5 mg PO Q8H Patient Comments: [NO ORIGINAL SIG] lidocaine [AneCream5] 5 % cream 1 applic topical BID PRN (Reason: hemorrhoids) lidocaine [AneCream5] 5 % cream 1 applic topical Q4H PRN (Reason: pain) Rx Instructions: face oxycodone 5 mg tablet 5 mg PO Q8H PRN (Reason: pain) ondansetron 4 mg tablet,disintegrating 4 mg PO Q8H Primary Care Provider: Sneha Mabry Referrals: Sneha Mabry MD [Primary Care Provider] - As Needed Print Language: Israeli Disposition Disposition: Home, Self Care
[2024-09-06 18:45] VITALS: BP 156/72; PULSE 62; RESP 19; TEMP 36.6; O2SAT 98
== END 2024-09-06 19:41 | disposition home or self-care (01) ==
LOC: ED 18:40
PROVIDERS: Emergency Provider Emergency Medicine; PCP Nurse Practitioner Primary Care; Referring Provider Emergency Medicine; Visit Provider Emergency Medicine
DX: S09.90XA Unspecified injury of head, initial encounter (principal); N18.4 Chronic kidney disease, stage 4 (severe); E11.22 Type 2 diabetes mellitus with diabetic chronic kidney disease; I12.9 Hypertensive chronic kidney disease with stage 1 through stage 4 chronic kidney disease, or unspecified chronic kidney disease; Z51.5 Encounter for palliative care; I25.2 Old myocardial infarction; E03.9 Hypothyroidism, unspecified; Z66 Do not resuscitate; S81.811A Laceration without foreign body, right lower leg, initial encounter; S81.812A Laceration without foreign body, left lower leg, initial encounter; W19.XXXA Unspecified fall, initial encounter
CPT/HCPCS: 99284